=== PATIENT | female | born 1975 | race Caucasian/White ===

== ENCOUNTER 2023-10-17 09:17 | Emergency (ER) | payer OTHER, SELFPAY ==
--- NOTE | ~2023-10-17 | MR_ITS ---
MRI OF THE BRAIN WITHOUT IV CONTRAST INDICATION: Cerebellar infarction. COMPARISON: Head CT 10/17/2023. TECHNIQUE: Multiplanar multisequence MR imaging of the brain was obtained without IV contrast. FINDINGS: There is no hydrocephalus, extra-axial surface collection, or herniation. There are multiple chronic cerebellar lacunar infarcts bilaterally. There is mild chronic microangiopathy. The major flow voids at the skull base are preserved. There is no acute infarct on diffusion-weighted imaging. There is no intracranial hemorrhage on the gradient recalled echo acquisition. The midline structures are normal. The cerebellar tonsils are normally positioned. The craniocervical junction is normal. Osseous marrow signal intensity is homogenous. The visualized soft tissues are unremarkable. MR/MR head/brain wo con IMPRESSION: - No acute intracranial findings. No acute infarcts. - There are multiple chronic cerebellar lacunar infarcts bilaterally. There is mild chronic microangiopathy.
--- NOTE | ~2023-10-17 | CT_ITS ---
EXAMINATION: CT HEAD WITHOUT CONTRAST CLINICAL INFORMATION: Lethargy. COMPARISON: CT head 03/29/2007. TECHNIQUE: Contiguous axial imaging was performed from the skull base to vertex without intravenous administration of contrast. This CT examination was performed using dose optimization techniques as appropriate, variously including the following: *Automated exposure control *Adjustment of mA and/or kV according to patient size (this includes techniques or standardized protocols for targeted exams where dose is matched to indication/reason for exam; i.e. extremities or head) *Use of iterative reconstruction technique DLP: 760 mGy-cm FINDINGS: There is no acute intracranial hemorrhage or abnormal extra-axial collection. No intracranial mass effect or midline shift. Lateral and third ventricles are normal. No hydrocephalus. There are a few tiny age indeterminate left cerebellar infarcts. Garnica-white matter differentiation is otherwise preserved and there is no evidence of acute territorial infarct. The calvarium and skull base are grossly intact. No mastoid middle ear effusion. No active paranasal sinus disease. CT/CT head/brain wo IV con IMPRESSION: There are a few tiny age indeterminant left cerebellar infarcts. These infarcts were not definitively visible on the CT scan of the head from 03/29/2007. Otherwise unremarkable examination. No evidence of acute hemorrhage.
[2023-10-17 09:32] VITALS: BP 132/82; BP 98/58; PULSE 60; PULSE 61; RESP 16; TEMP 36.6; O2SAT 95; O2SAT 97; BMI 54.2
--- NOTE | 2023-10-17 09:36 | ECG_ITS ---
Test Reason : weakness Blood Pressure : / mmHG Vent. Rate : 055 BPM Atrial Rate : 055 BPM P-R Int : 146 ms QRS Dur : 092 ms QT Int : 456 ms P-R-T Axes : 002 004 -01 degrees QTc Int : 436 ms Sinus bradycardia Inferior infarct , age undetermined Abnormal ECG No previous ECGs available Referred By: Generic ED Physician Electronically Signed By:ELIJAH SOUSA MD
[2023-10-17 10:20] VITALS: BP 93/50; PULSE 57; RESP 12; TEMP 36.6; O2SAT 94
[2023-10-17 10:52] LABS: Basophils Absolute Auto 0.1 X10*3/uL (0.0-0.2); Basophils Percent Auto 0.9 % (0-2); Eosinophils Absolute Auto 0.2 X10*3/uL (0.0-0.4); Eosinophils Percent Auto 3.4 % (0-4); Hematocrit 45.4 % (37.0-47.0); Hemoglobin 15.3 g/dl (12.0-16.0); Imm Gran Abs Auto 0.01 X10*3/uL (0.00-0.03); Imm Gran Pct Auto 0.2 % (0.0-0.4); Lymphocytes Absolute Auto 2.1 X10*3/uL (1.2-4.9); Lymphocytes Percent Auto 32.3 % (20-40); Mean Corpuscular HGB Conc 33.7 g/dl (31.0-35.0); Mean Corpuscular Hemoglobin 33.6 pg (27.0-33.0); Mean Corpuscular Volume 99.6 fL (80.0-98.0); Mean Platelet Volume 9.7 fL (9.4-12.3); Monocytes Absolute Auto 0.7 X10*3/uL (0.1-1.2); Monocytes Percent Auto 10.1 % (2-11); Neutrophils Absolute Auto 3.4 x10*3/uL (2.0-8.3); Neutrophils Percent Auto 53.1 % (45-73); Platelet Count 224 X10*3/uL (160-400); Red Blood Count 4.56 X10*6/uL (4.20-5.50); Red Cell Distribution Width 12.5 % (11.0-16.0); White Blood Count 6.4 X10*3/uL (4.8-10.8)
--- NOTE | 2023-10-17 10:53 | ED_ITS ---
HPI - General Adult General Chief complaint: General Medical Stated complaint: DIZZY W/FALLS ,AMS PER EMS Time Seen by Provider: 10/17/23 10:45 Source: patient and EMS Mode of arrival: EMS Limitations: no limitations History of Present Illness ED Provider: Dr. Nichols HPI narrative: Patient is in rehab for drug and alcohol. She was recently started on trazadone and has had increasing letheragy and increasing ataxia. Patient complaining of feeling off balance but does not describe vertigo. Onset (ago): day(s) Related Data Allergies Allergy/AdvReac Type Severity Reaction Status Date / Time No Known Allergies Allergy Verified 10/17/23 09:36 Review of Systems 2 Review of Systems: Yes all other systems are reviewed and are negative Neurologic: Denies Sensory deficit (Neuro) PMFSH Social History Social History Advance Directives: No Advance Directives Information Provided: No Physical Exam ED Vital Signs: Vital Signs - 24 hr 10/17/23 09:32 10/17/23 10:20 10/17/23 12:42 Temperature 98 F 97.8 F 96.5 F L Pulse Rate 61 57 72 Respiratory Rate 16 12 16 Blood Pressure 98/58 L 93/50 L 163/99 H Pulse Oximetry 95 94 99 Oxygen Delivery Method Room Air Room Air Room Air 10/17/23 12:55 10/17/23 14:12 Temperature 98.2 F Pulse Rate 58 54 Respiratory Rate 12 16 Blood Pressure 100/50 L 112/74 Pulse Oximetry 98 96 Oxygen Delivery Method Room Air Room Air BMI result Body Mass Index 54.2 Const Other: obese female chronically ill in no acute distress Orientation/consciousness: oriented to person and patient oriented x3 Limitations: no limitations HENMT Head: Yes normal to inspection Ears: external ears normal General nose exam: Normal external nose present Mouth: Normal oral and palatal mucosa present and oropharynx normal Throat: Yes posterior oropharynx normal Eyes General: appearance normal, both eyes and all related structures Neck Neck: Yes normal visual inspection Chest Chest palpation & inspection: normal inspection of the chest Resp Auscultation: clear to auscultation bilaterally Cardio Jugular venous distension: no JVD Rate: regular rate Rhythm: regular rhythm Heart sounds: S1 normal heart sound present and S2 normal heart sound present GI Inspection: Yes normal to inspection Palpation (GI): Soft to palpation, nontender and No hepatosplenomegaly present Auscultation: normal bowel sounds General: Yes no CVA tenderness Back/Spine/Pelvis Back: no CVA tenderness Skin General skin exam: no rashes or lesions noted Neuro Other: I walked the patient and she was not steady on her feet with assistance General: oriented to person and patient oriented x3 Cranial nerves: Yes CN's II-XII intact bilaterally Motor exam (neuro): 5/5 motor strength present throughout Sensory Exam: No Sensory deficit (Neuro) Extrem General: Yes normal to inspection Psych Appearance: grossly normal Course Reevaluation(s) Reevaluation #1: Wide based gait slightly off balance will get MRI of brain as CT shows concern for cerebellar infarctions Time: 13:07 Reevaluation #2: physician observation: patient placed in physician observation at 3:44pm. The reason the patient was placed in physician observation is that her head CT showed new cerebellar infarctions age indeterminant and I ordered a MRI of her brain. Currently she is resting comfortably in bed. Time is needed to see if the patient had a cerebellar stroke Time: 15:46 Reevaluation #3: I spent 40 minutes of critical care, with interventions, assessments, speaking to patient, consultants, and family. Time: 16:09 Medical Decision Making Differential Diagnosis Differential Diagnoses: The differential diagnosis associated with the presentation includes (Medication side effect, psychiatric illness, drug dependence, CVA) Admission/Observation Consideration of admission/observation: Escalation of care including admission/observation considered (upon arrival patient considered for admission) Lab Data 10/17/23 10:43 10/17/23 10:43 Labs: Lab Results 10/17/23 10/17/23 Range/Units 10:43 10:51 WBC 6.4 (4.8-10.8) X10*3/uL RBC 4.56 (4.20-5.50) X10*6/uL Hgb 15.3 (12.0-16.0) g/dl Hct 45.4 (37.0-47.0) % MCV 99.6 H (80.0-98.0) fL MCH 33.6 H (27.0-33.0) pg MCHC 33.7 (31.0-35.0) g/dl RDW 12.5 (11.0-16.0) % Plt Count 224 (160-400) X10*3/uL MPV 9.7 (9.4-12.3) fL Immature Gran % (Auto) 0.2 (0.0-0.4) % Neut % (Auto) 53.1 (45-73) % Lymph % (Auto) 32.3 (20-40) % [place] % (Auto) 10.1 (2-11) % Eos % (Auto) 3.4 (0-4) % Baso % (Auto) 0.9 (0-2) % Lymph # (Auto) 2.1 (1.2-4.9) X10*3/uL [place] # (Auto) 0.7 (0.1-1.2) X10*3/uL Eos # (Auto) 0.2 (0.0-0.4) X10*3/uL Baso # (Auto) 0.1 (0.0-0.2) X10*3/uL Abs Immat Gran (auto) 0.01 (0.00-0.03) X10*3/uL Absolute Neuts (auto) 3.4 (2.0-8.3) x10*3/uL Absolute Nucleated RBC 0.000 (0.0-0.012) X10*3/uL Nucleated RBC % (auto) 0.0 (0.0-0.2) /100WBC Sodium 143 (135-145) mmol/L Potassium 3.6 (3.3-5.1) mmol/L Chloride 105 (96-108) mmol/L Carbon Dioxide 27 (22-29) mmol/L Anion Gap 15 (12-20) BUN 22 H (9-16) mg/dL Creatinine 1.23 (0.5-1.4) mg/dL Estim Creat Clear Calc 76.8 Estimated GFR 47 Random Glucose 90 (60-115) mg/dL Calcium 10.0 (8.4-10.2) mg/dL Total Bilirubin 0.5 (0.0-1.0) mg/dL AST 49 H (5-31) U/L ALT 44 H (0-31) U/L Alkaline Phosphatase 76 (39-117) U/L Total Protein 7.8 (6.5-8.0) g/dL Albumin 4.0 (3.5-5.0) g/dL Urine Color Yellow Urine Appearance Clear Urine pH 5.5 (5.0-9.0) Ur Specific [place] 1.015 (1.005-1.025) Urine Protein Trace (Neg-Trace) mg/dL Urine Glucose (UA) Negative (Negative) mg/dL Urine Ketones Negative (Negative) mg/dL Urine Blood Negative (Negative) Urine Nitrite Negative (Negative) Ur Leukocyte Esterase Negative (Negative) Urine Opiates Screen Not Detected (Not Detect) Ur Buprenorphine Scrn Not Detected (Not Detect) ng/mL Ur Oxycodone Screen Not Detected (Not Detect) ng/mL Urine Methadone Screen Not Detected (Not Detect) ng/mL Urine Fentanyl Screen Not Detected (Not Detect) Ur Barbiturates Screen Not Detected (Not Detect) Ur Phencyclidine Scrn Not Detected (Not Detect) Ur Amphetamines Screen Not Detected (Not Detect) U Benzodiazepines Scrn POSITIVE H (Not Detect) Urine Cocaine Screen Not Detected (Not Detect) U Marijuana (THC) Screen Not Detected (Not Detect) Independent Interpretation I performed an independent interpretation of an: EKG (sinus [address] or twave changes) and CT Scan (Brain: no bleed no mass) Radiology Impression Discussion of test interpretation with radiology: I have reviewed the radiologist's reading. (Radiologist read age indeterminant cerebellar strokes) Independent Historian Clinical information obtained from an independent historian. History obtained from or confirmed by: EMS Social Determinants Patient?s care significantly limited by Social Determinants of Health including: Alcoholism and drug addiction in family Discharge Plan Discharge Clinical Impression: Lethargic, Gait disturbance, Drug side effects Patient Disposition: Still a Patient Print Language: Brazilian
[2023-10-17 10:58] LABS: Appearance Urine Clear; Color Urine Yellow; Glucose Urine UA Negative (Negative); Leukocyte Esterase Urine Negative (Negative); Nitrite Urine Negative (Negative); PH 5.5 (5.0-9.0); Specific Gravity - Urine 1.015 (1.005-1.025); Urine Blood Negative (Negative); Urine Ketones Negative (Negative); Urine Protein Trace mg/dL (Neg-Trace)
[2023-10-17 11:09] LABS: Alanine Aminotransferase 44 U/L (0-31); Alkaline Phosphatase 76 U/L (39-117); Anion Gap 15 (12-20); Aspartate Amino Transferase 49 U/L (5-31); Bilirubin Total 0.5 mg/dL (0.0-1.0); Blood Urea Nitrogen 22 mg/dL (9-16); Carbon Dioxide 27 mmol/L (22-29); Chloride 105 mmol/L (96-108); Creatinine Clr Calc Pharmacy 76.8; Estimated Glomerular Filt Rate 47; Glucose Random 90 mg/dL (60-115); Potassium 3.6 mmol/L (3.3-5.1); Sodium 143 mmol/L (135-145); Total Protein 7.8 g/dL (6.5-8.0)
[2023-10-17 11:12] LABS: Amphetamine Screen Urine Not Detected (Not Detect); Barbiturates, Urine Not Detected (Not Detect); Benzodiazepines Screen Urine POSITIVE (Not Detect); Buprenorphine Scr Not Detected (Not Detect); Cannabinoid Screen Urine Not Detected (Not Detect); Cocaine Screen Urine Not Detected (Not Detect); Fentanyl, urine Not Detected (Not Detect); Methadone Screen, Urine Not Detected (Not Detect); Opiate Screen Urine Not Detected (Not Detect); Oxycodone Screen Urine Not Detected (Not Detect); Phencyclidine Screen Urine Not Detected (Not Detect)
[2023-10-17 12:42] VITALS: BP 163/99; PULSE 72; RESP 16; TEMP 35.8; O2SAT 99
[2023-10-17 12:55] VITALS: BP 100/50; PULSE 58; RESP 12; O2SAT 98
[2023-10-17 14:12] VITALS: BP 112/74; PULSE 54; RESP 16; TEMP 36.8; O2SAT 96
--- NOTE | 2023-10-17 17:49 | PC.NURSE ---
patient to mri
--- NOTE | 2023-10-17 21:25 | PC.NURSE ---
late entry- pt a&ox4, respirations even and unlabored. pt reporting pain at IV site, iv tubing changed and IV line reassessed at this time. pt denies pain at site. pt resting in stretcher.
[2023-10-17 21:39] VITALS: BP 112/69; PULSE 77; RESP 16; TEMP 36.6; O2SAT 95
[2023-10-18 00:17] VITALS: BP 140/70; PULSE 57; RESP 16; TEMP 36.9; O2SAT 94
--- NOTE | 2023-10-18 01:13 | PC.NURSE ---
report given to Britt at [facility].
[2023-10-18] MEDS: Atorvastatin Calcium 40 MG TABLET PO (01:18)
[2023-10-18] MEDS: Aspirin Enteric Coated 325 MG TABLET.DR PO (01:18)
--- NOTE | 2023-10-18 01:25 | PC.NURSE ---
pt medicated per jul, tolerated well with water. pt noted to have incontinent urine, pt given new gown and hospital pants.
[2023-10-18 02:53] VITALS: BP 140/76; PULSE 58; RESP 16; TEMP 36.6; O2SAT 94
--- NOTE | 2023-10-18 03:16 | PC.NURSE ---
ems at bedside for report and transfer
[2023-10-18 03:18] VITALS: BP 140/76; PULSE 58; RESP 16; TEMP 36.6; O2SAT 94
== END 2023-10-18 03:18 | disposition other institution (70) ==
PROVIDERS: Emergency Provider Emergency Medicine
DX: R53.83 Other fatigue (principal); R26.0 Ataxic gait; T43.215A Adverse effect of selective serotonin and norepinephrine reuptake inhibitors, initial encounter; Y92.009 Unspecified place in unspecified non-institutional (private) residence as the place of occurrence of the external cause; R42 Dizziness and giddiness; F10.20 Alcohol dependence, uncomplicated; Y90.9 Presence of alcohol in blood, level not specified; E66.9 Obesity, unspecified; Z68.43 Body mass index [BMI] 50.0-59.9, adult; Z86.73 Personal history of transient ischemic attack (TIA), and cerebral infarction without residual deficits; Z87.891 Personal history of nicotine dependence
CPT/HCPCS: 36415; 70450; 70551; 80053; 80307; 81003; 85025; 93005; 99285

== ENCOUNTER → 2023-10-17 09:36 | Outpatient (BNV) | payer OTHER, SELFPAY | PROVIDERS: Emergency Provider Emergency Medicine; Visit Provider Internal Medicine Cardiovascular Disease | DX: R53.1 Weakness (principal) | CPT/HCPCS: 93010 ==

== ENCOUNTER 2023-10-18 16:09 | Inpatient (IN) | payer MEDICAID, SELFPAY ==
[2023-10-18] VITALS (7 sets, daily range): BP systolic 107–132; BP diastolic 49–98; PULSE 58–76; RESP 16–18; TEMP 36.2–37.1; O2SAT 92–97; BMI 53.3; BMI 52.1
--- NOTE | ~2023-10-18 | CT_ITS ---
EXAMINATION: CT ANGIOGRAM HEAD CT ANGIOGRAM NECK CLINICAL INFORMATION: Headache. Complete loss of vision lasting 1-2 minutes one or 2 weeks prior. No associated weakness or headache. COMPARISON: None. TECHNIQUE: Initial noncontrast lithographic proofer apprentice imaging of the head and neck was performed. Noncontrast head CT was also performed. Test bolus sequences followed by intravenous administration 70 mL of Omnipaque 350. Helical imaging was performed in the axial plane from the aortic arch to the skull vertex. Delayed postcontrast imaging of the head was also performed. The data was processed at the chief nuclear medicine technologist's workstation for generation of MIP sequences. Angled MIPs and volume rendered reformatted images were also generated at an offline 3D workstation. Stenoses are assessed in accordance with NASCET criteria unless otherwise indicated. This CT examination was performed using dose optimization techniques as appropriate, variously including the following: *Automated exposure control. *Adjustment of mA and/or kV according to patient size (this includes techniques or standardized protocols for targeted exams where dose is matched to indication/reason for exam; i.e. extremities or head). *Use of iterative reconstruction technique. DLP: 2202 mGy-cm FINDINGS: CT Head: There is no evidence of acute intracranial hemorrhage or edematous territorial infarction. Garnica-white matter differentiation is preserved. Chronic lacunar infarcts of the left cerebellar hemisphere. A few foci of hypoattenuation in the periventricular and deep white matter most commonly seen with mild microangiopathy. The ventricles are normal in morphology and size. No evidence for obstructive hydrocephalus. No abnormal mass effect or midline shift. No extra-axial fluid collections. No pathologic intra-axial enhancement. No acute soft tissue or osseous abnormalities. Mild mucosal thickening of the paranasal sinuses. Moderate leftward nasal septal deviation with spurring. The mastoid air cells and middle ear cavities are clear. CT Neck: The thyroid gland and remaining cervical soft tissues are within normal limits. Reversal the normal cervical lordosis centered on C5-C6. Congenital nonunion of the posterior arch of C1. Moderate degenerative disc disease from C5-C7. Facet and uncovertebral joint arthropathy leads to osseous encroachment on the neural foramina from C5-C7. CT Upper Chest: The visualized lung apices and upper mediastinum are within normal limits. Neck CTA: Aortic Arch: Normal contour and caliber. Classic 3 vessel branching pattern of the aortic arch. Great Vessel Origins: No significant stenosis of the branch origins. Right Common Carotid Artery: No focal stenosis or occlusion. Cervical Right Internal Carotid Artery: Normal opacification without focal stenosis or occlusion. Left Common Carotid Artery: No focal stenosis or occlusion. Cervical Left Internal Carotid Artery: Normal opacification without focal stenosis or occlusion. Cervical Right Vertebral Artery: Co-dominant. No focal stenosis or occlusion. Cervical Left Vertebral Artery: Co-dominant. No focal stenosis or occlusion. Brain CTA: Intracranial Internal Carotid Arteries: No focal stenosis or occlusion. Right Anterior Cerebral Artery: Normal A1 segment. Normal opacification of the distal TAVARES segments. Left Anterior Cerebral Artery: Normal A1 segment. Normal opacification of the distal TAVARES segments. Anterior Communicating Artery: Normal. Right Middle Cerebral Artery: Normal M1 segment of the MCA without focal stenosis or occlusion. Normal arborization of the distal segments. Left Middle Cerebral Artery: Normal M1 segment of the MCA without focal stenosis or occlusion. Normal arborization of the distal segments. Right Vertebral Artery: Normal V4 segment. Normal opacification of the proximal segments of the posterior inferior cerebellar artery. Left Vertebral Artery: Normal V4 segment. Normal opacification of the proximal segments of the posterior inferior cerebellar artery. Basilar Artery: Normal without focal stenosis or occlusion. Normal appearance of the proximal superior cerebellar arteries. Right Posterior Cerebral Artery: Normal P1 segment. Normal opacification of the distal [employer] segments. Left Posterior Cerebral Artery: Normal P1 segment. Normal opacification of the distal [employer] segments. Normal opacification of the superior sagittal, straight, transverse, and sigmoid sinuses. CT/CT angio head neck IMPRESSION: 1. No evidence of acute intracranial hemorrhage or edematous territorial infarction. 2. CTA of the head and neck without proximal occlusion or flow-limiting stenosis. 3. Chronic lacunar infarcts of the left cerebellar hemisphere. Mild underlying microangiopathy.
--- NOTE | 2023-10-18 16:36 | ED.NEUROSD ---
HPI - Neuro Symptoms/Deficit General Chief Complaint: Fall Stated Complaint: BILAT LEG PAIN Time Seen by Provider: 10/18/23 16:27 Source: patient Mode of arrival: EMS Limitations: no limitations History of Present Illness ED Provider: gem OWEN Narrative: Patient is 48 years old with history of alcohol abuse depression comes from inpatient psych facility steady gait and recurrent fall for last 10 days patient was seen here yesterday showed significant ataxia MRI done which showed cerebellar stroke patient's went back to senior care and unable to ambulate almost fell today to without significant injuries Related Data Home Medications ?Medication ?Instructions ?Recorded ?Confirmed diazepam 5 mg tablet 7.5 mg PO TID 10/17/23 10/18/23 escitalopram oxalate 20 mg tablet 20 mg PO DAILY 10/17/23 10/18/23 furosemide 20 mg tablet 20 mg PO DAILY 10/17/23 10/18/23 furosemide 20 mg tablet 20 mg PO DAILY PRN Edema 10/17/23 10/18/23 ibuprofen 800 mg tablet 800 mg PO BID PRN Pain 10/17/23 10/18/23 meclizine 25 mg tablet 25 mg PO BID PRN Dizziness 10/17/23 10/18/23 metformin 500 mg tablet 500 mg PO DAILY 10/17/23 10/18/23 pantoprazole 40 mg tablet,delayed 40 mg PO BID 10/17/23 10/18/23 release thiamine HCl (vitamin B1) 100 mg 100 mg PO DAILY 10/17/23 10/18/23 tablet trazodone 50 mg tablet 50 mg PO BEDTIME 10/17/23 10/18/23 Previous Rx's ?Medication ?Instructions ?Recorded aspirin 81 mg tablet,delayed 81 mg PO DAILY #90 tabs 10/18/23 release atorvastatin 40 mg tablet 40 mg PO BEDTIME #90 tabs 10/18/23 Allergies Allergy/AdvReac Type Severity Reaction Status Date / Time No Known Allergies Allergy Verified 10/18/23 16:32 Review of Systems Review of Systems: Yes all other systems are reviewed and are negative PMFSH Social History Social History Household Members: Other Household Members Other:: senior care Housing: Other Unable to assess alcohol history related to: Unable to respond Alcohol intake: former Patient Tobacco Use Status: Former Tobacco user Tobacco use type: Cigarette Smoked in Last 30 Days: No e-Cigarette/Vaping Use: Never Used Use of substances other than those prescribed or required for medical reasons: No Currently Displaying Signs/Symptoms of Drug Intoxication Withdrawal: No Any prior treatment program specific to substance use: No Have you been hit, kicked, punched, or otherwise hurt by someone within the past year? If so, by whom?: No Do you feel safe in your current relationship?: Yes Is there a partner from a previous relationship who is making you feel unsafe now?: No Are you made to feel afraid or neglected: No Advance Directives: No Advance Directives Information Provided: No Do you have a plan to hurt others: No Plan Recently lost weight without trying: No Eating poorly because of decreased appetite: No Nutrition Risks: No Nutritional Risk Patient : No : No Poor oral hygiene: No Physical Exam Vital Signs: Vital Signs: Last Vital Signs Temp 98.8 F 10/18/23 22:36 Pulse 72 10/18/23 22:36 Resp 18 10/18/23 22:36 BP 123/68 10/18/23 22:36 Pulse Ox 92 10/18/23 22:36 O2 Del Method Room Air 10/18/23 22:36 BMI result Body Mass Index 53.3 Appearance: Alert. Oriented X3. No acute distress. Eyes: PERRLA, No Nystagmus ENT: Pharynx normal. Oral Mucosa moist Neck: Normal inspection. Neck supple. CVS: Normal heart rate and rhythm. Pulses normal. Respiratory: No respiratory distress. Equal air entry bilateral, no wheezing/rales/rhonchi Abdomen: Soft and nontender. Bowel sounds are present, no mass palpable, no CVA tenderness Skin: Skin warm and dry. Normal skin color. Normal skin turgor. Extremities: No lower extremity edema. No calf tenderness Neuro: Oriented X 3. No motor deficit. No sensory deficit. Ataxic gait no tremors , cranial nerves II-XII intact Medications Administered Generic Name Dose Route Start Last Admin Trade Name Freq PRN Reason Stop Dose Admin Atorvastatin Calcium 40 mg 10/18/23 21:00 10/18/23 20:39 Atorvastatin Calcium 40 Mg Tablet PO 40 mg BEDTIME ARUN Administration Enoxaparin Sodium 40 mg 10/18/23 20:00 10/18/23 20:39 Enoxaparin Sodium 40 Mg/0.4 Ml Syringe SUBCUT 40 mg Q24H ARUN Administration Sodium Chloride 3 ml 10/19/23 00:00 10/18/23 23:37 0.9 % Sodium Chloride Flush 3 Ml Syringe IVFLUSH 3 ml QSHIFT ARUN Administration Discontinued Medications Generic Name Dose Route Start Last Admin Trade Name Hua PRN Reason Stop Dose Admin Iohexol 70 ml 10/18/23 17:50 10/18/23 17:50 Iohexol 350 Mg/Ml 100 Ml Infus..Btl IV 10/18/23 17:51 70 ml ONCE ONE Administration Medical Decision Making Medical Decision Making [facility] Narrative: Patient with recent cerebellar stroke with significant ataxia unable to ambulate falling frequently will admit patient for further evaluation urology input and physical therapy/rehab placement Consult Healthcare Provider Management of the patient was discussed with: Hospitalist Independent Interpretation I performed an independent interpretation of an: CT Scan Radiology Impression Discussion of test interpretation with radiology: I have reviewed the radiologist's reading. Radiologist Impression: [place] [id number] CT Scan Report Signed Patient: Sri Clayton MR#: [id number] : 1975 Acct:[id number] Age/Sex: 48 / F ADM Date: 10/18/23 Loc: HO.ED Attending Dr: Ordering Physician: Darin Hoover MD Date of Service: 10/18/23 Procedure(s): CT angio head neck Accession Number(s): [id number] cc: Physician,Unknown ; Darin Hoover MD~ EXAMINATION: CT ANGIOGRAM HEAD CT ANGIOGRAM NECK CLINICAL INFORMATION: Headache. Complete loss of vision lasting 1-2 minutes one or 2 weeks prior. No associated weakness or headache. COMPARISON: None. TECHNIQUE: Initial noncontrast field foreman imaging of the head and neck was performed. Noncontrast head CT was also performed. Test bolus sequences followed by intravenous administration 70 mL of Omnipaque 350. Helical imaging was performed in the axial plane from the aortic arch to the skull vertex. Delayed postcontrast imaging of the head was also performed. The data was processed at the dental technologist's workstation for generation of MIP sequences. Angled MIPs and volume rendered reformatted images were also generated at an offline 3D workstation. Stenoses are assessed in accordance with NASCET criteria unless otherwise indicated. This CT examination was performed using dose optimization techniques as appropriate, variously including the following: *Automated exposure control. *Adjustment of mA and/or kV according to patient size (this includes techniques or standardized protocols for targeted exams where dose is matched to indication/reason for exam; i.e. extremities or head). *Use of iterative reconstruction technique. DLP: 2202 mGy-cm FINDINGS: CT Head: There is no evidence of acute intracranial hemorrhage or edematous territorial infarction. Garnica-white matter differentiation is preserved. Chronic lacunar infarcts of the left cerebellar hemisphere. A few foci of hypoattenuation in the periventricular and deep white matter most commonly seen with mild microangiopathy. The ventricles are normal in morphology and size. No evidence for obstructive hydrocephalus. No abnormal mass effect or midline shift. No extra-axial fluid collections. No pathologic intra-axial enhancement. No acute soft tissue or osseous abnormalities. Mild mucosal thickening of the paranasal sinuses. Moderate leftward nasal septal deviation with spurring. The mastoid air cells and middle ear cavities are clear. CT Neck: The thyroid gland and remaining cervical soft tissues are within normal limits. Reversal the normal cervical lordosis centered on C5-C6. Congenital nonunion of the posterior arch of C1. Moderate degenerative disc disease from C5-C7. Facet and uncovertebral joint arthropathy leads to osseous encroachment on the neural foramina from C5-C7. CT Upper Chest: The visualized lung apices and upper mediastinum are within normal limits. Neck CTA: Aortic Arch: Normal contour and caliber. Classic 3 vessel branching pattern of the aortic arch. Great Vessel Origins: No significant stenosis of the branch origins. Right Common Carotid Artery: No focal stenosis or occlusion. Cervical Right Internal Carotid Artery: Normal opacification without focal stenosis or occlusion. Left Common Carotid Artery: No focal stenosis or occlusion. Cervical Left Internal Carotid Artery: Normal opacification without focal stenosis or occlusion. Cervical Right Vertebral Artery: Co-dominant. No focal stenosis or occlusion. Cervical Left Vertebral Artery: Co-dominant. No focal stenosis or occlusion. Brain CTA: Intracranial Internal Carotid Arteries: No focal stenosis or occlusion. Right Anterior Cerebral Artery: Normal A1 segment. Normal opacification of the distal TAVARES segments. Left Anterior Cerebral Artery: Normal A1 segment. Normal opacification of the distal TAVARES segments. Anterior Communicating Artery: Normal. Right Middle Cerebral Artery: Normal M1 segment of the MCA without focal stenosis or occlusion. Normal arborization of the distal segments. Left Middle Cerebral Artery: Normal M1 segment of the MCA without focal stenosis or occlusion. Normal arborization of the distal segments. Right Vertebral Artery: Normal V4 segment. Normal opacification of the proximal segments of the posterior inferior cerebellar artery. Left Vertebral Artery: Normal V4 segment. Normal opacification of the proximal segments of the posterior inferior cerebellar artery. Basilar Artery: Normal without focal stenosis or occlusion. Normal appearance of the proximal superior cerebellar arteries. Right Posterior Cerebral Artery: Normal P1 segment. Normal opacification of the distal [employer]IST segments. Left Posterior Cerebral Artery: Normal P1 segment. Normal opacification of the distal FIN[employer] E[employer]IST segments. Normal opacification of the superior sagittal, straight, transverse, and sigmoid sinuses. CT/CT angio head neck IMPRESSION: 1. No evidence of acute intracranial hemorrhage or edematous territorial infarction. 2. CTA of the head and neck without proximal occlusion or flow-limiting stenosis. 3. Chronic lacunar infarcts of the left cerebellar hemisphere. Mild underlying microangiopathy. Discharge Plan Discharge Clinical Impression: Abnormal gait Patient Disposition: Admitted As Inpatient Interventions: Admission Worksheet (ED) Last Done: 10/18/23 21:46 Discharge Date/Time: 10/18/23 22:31
[2023-10-18] MEDS: iohexoL 350 MG/ML 100 ML INFUS..BTL 70 ML IV (17:50)
--- NOTE | 2023-10-18 18:09 | PM.IMHP ---
History of Present Illness Date of Service: 10/18/23 Chief Complaint: Falls/unsteady gait 48-year-old female patient resident of [facility] with past medical history significant for borderline diabetes, morbid obesity, fatty liver currently residing in a [facility] for last 1 month for alcohol recovery and treatment for depression at baseline she ambulates with a cane , but for last 7-10 days she noticed losing balance and falling, she denies associated headache, no nausea, no vomiting, she noticed vertigo 2-3 weeks ago for which she was prescribed meclizine 10 days ago with good affect , she was also recently started on trazodone, patient was seen at [facility] yesterday for symptoms of ataxia and lethargy, MRI 10/16 showed no acute intracranial finding, no acute infarction but showed multiple chronic cerebellar lacunar infarctions bilaterally and mild chronic microangiopathy, patient was placed on aspirin and statins and was sent back to [facility] for outpatient workup, however patient was sent back to ED today due to persistent symptoms of fall unsteady gait and [facility] was unable to take care of patient, at present patient denies any headache, no lightheadedness, no dizziness, denies weakness numbness, no nausea, no vomiting, she stopped drinking 1 month ago, quit smoking 2 years ago, denies urinary symptoms of urgency frequency, no fevers, no chills, she will be admitted to [facility] due to unsteady gait recurrent falls and for further evaluation of cerebellar lacunar infarcts. Review of Systems Review of Systems: General no headache, no dizziness no fever chills. CVS no chest pain, no palpitation. Respiratory cough productive of thick phlegm Gastrointestinal no nausea no vomiting, no abdominal pain no urgency no frequency Skin no rash Musculoskeletal chronic knee pain due to osteoarthritis left greater than right, lower back pain All other system reviewed and negative PMFSH Pertinent family history: Mother of renal failure had cardiac arrest during hemodialysis Father alive and healthy Social History Household Members: Other Household Members Other:: [facility] Housing: Other Unable to assess alcohol history related to: Unable to respond Alcohol intake: former Patient Tobacco Use Status: Former Tobacco user Tobacco use type: Cigarette Smoked in Last 30 Days: No e-Cigarette/Vaping Use: Never Used Use of substances other than those prescribed or required for medical reasons: No Currently Displaying Signs/Symptoms of Drug Intoxication Withdrawal: No Any prior treatment program specific to substance use: No Have you been hit, kicked, punched, or otherwise hurt by someone within the past year? If so, by whom?: No Do you feel safe in your current relationship?: Yes Is there a partner from a previous relationship who is making you feel unsafe now?: No Are you made to feel afraid or neglected: No Advance Directives: No Advance Directives Information Provided: No Do you have a plan to hurt others: No Plan Recently lost weight without trying: No Eating poorly because of decreased appetite: No Nutrition Risks: No Nutritional Risk Patient : No : No Poor oral hygiene: No Meds Allergies Allergy/AdvReac Type Severity Reaction Status Date / Time No Known Allergies Allergy Verified 10/18/23 16:32 Home Medications ?Medication ?Instructions ?Recorded ?Confirmed ?Last Taken ?Type diazepam 5 mg tablet 7.5 mg PO TID 10/17/23 10/18/23 Unknown History escitalopram oxalate 20 mg tablet 20 mg PO DAILY 10/17/23 10/18/23 Unknown History furosemide 20 mg tablet 20 mg PO DAILY 10/17/23 10/18/23 Unknown History furosemide 20 mg tablet 20 mg PO DAILY PRN Edema 10/17/23 10/18/23 Unknown History ibuprofen 800 mg tablet 800 mg PO BID PRN Pain 10/17/23 10/18/23 Unknown History meclizine 25 mg tablet 25 mg PO BID PRN Dizziness 10/17/23 10/18/23 Unknown History metformin 500 mg tablet 500 mg PO DAILY 10/17/23 10/18/23 Unknown History pantoprazole 40 mg tablet,delayed 40 mg PO BID 10/17/23 10/18/23 Unknown History release thiamine HCl (vitamin B1) 100 mg 100 mg PO DAILY 10/17/23 10/18/23 Unknown History tablet trazodone 50 mg tablet 50 mg PO BEDTIME 10/17/23 10/18/23 Unknown History Physical Exam Vital Signs and Narrative: Vital Signs: Last Vital Signs Temp 98.1 F 10/18/23 17:46 Pulse 58 10/18/23 17:46 Resp 16 10/18/23 17:46 BP 132/67 10/18/23 17:46 Pulse Ox 97 10/18/23 17:46 O2 Del Method Room Air 10/18/23 17:46 BMI result Body Mass Index 53.3 Const: Other: General awake alert x3, in no acute distress. HEENT anicteric sclera, no nystagmus Neck supple no JVD. CVS regular rate rhythm, Respiratory lungs clear to auscultation, no respiratory distress, no wheeze, no rhonchi. Gastrointestinal abdomen soft, non tender, bowel sounds audible, no guarding , no rigidity. Extremities no edema. Neuro moving all 4 extremity, face symmetrical, speech clear, no nystagmus, normal finger-nose. Skin no rash Psych appropriate affect Results Imaging Radiologist's Impressions: Impressions Head/Neck CTA 10/18/23 17:51 IMPRESSION: 1. No evidence of acute intracranial hemorrhage or edematous territorial infarction. 2. CTA of the head and neck without proximal occlusion or flow-limiting stenosis. 3. Chronic lacunar infarcts of the left cerebellar hemisphere. Mild underlying microangiopathy. Assessment and Plan (1) Gait disturbance: Status: Acute Plan 48-year-old female patient with past medical history significant for alcohol abuse, depression currently resident of [facility] x1 month recovering from alcohol was seen at [facility] on due to symptoms of lethargy and falls and MRIs study showed bilateral multiple chronic cerebellar lacunar infarctions, patient was sent back to [facility] but returned back to ED due to persistent falls and unsteady gait. Unsteady gait/recurrent falls Likely multifactorial due to history of alcohol abuse/chronic lacunar infarction of b/l cerebellar hemispheres obtain PT/OT eval Consult neurology Chronic bilateral cerebellar lacunar infarction History of borderline diabetes, no hypertension, no tobacco use disorder Continue Lipitor, aspirin Stable blood pressures and blood sugars Check lipid profile/echocardiogram/ obtain PT/OT eval Consult neurology History of alcohol use disorder Residing at [facility] for alcohol recovery x1 month Place on thiamine/folic acid Mood disorder resume home medications avoid sedatives due to lethargy. Borderline diabetes stable blood sugars recommend low-calorie diet and continue metformin upon discharge. Morbid obesity recommend low-calorie diet and weight loss DVT prophylaxis Lovenox subQ Full code In my clinical judgment patient need two night inpatient hospitalization for further workup for unsteady gait recurrent falls and chronic lacunar infarct requiring expert consultation/PT evaluation and safe disposition. Quality Stroke Does the patient have a stroke diagnosis?: No VTE Prior VTE?: No VTE Risk Level:: Medical - moderate - high VTE Device Contraindication: Treatment Not Indicated VTE Drug Contraindication: N/A - Med Ordered
--- NOTE | 2023-10-18 18:34 | PC.NURSE ---
pt alert and oriented. seen here yesterday for TIA. Pt continues to have trouble ambulating today, feels very unsteady and off balance and has had a few falls. Pt reports that they quit drinking one month ago and have not had a drink in that times. IV 20g right forearm.
--- NOTE | 2023-10-18 19:41 | PC.NURSE ---
This narrative writer assumed care of this Pt at 1900. Pt A&O to self and place, denies any pain. Pt requesting PO fluids and sandwich, Pt awaiting Ct scan results at this time, pt okay to wait.
--- NOTE | 2023-10-18 19:42 | PC.NURSE ---
This marketing underwriter assumed care of this Pt at 1900. Pt A&Ox3, denies any pain. Reports unknown weakness to L. Pt worried she will loose placement at current shelter.
--- NOTE | 2023-10-18 19:44 | MHC.EDTECH ---
1999 rounding done ,vitals taken and patient belongings list done ,Patient had tuna fish sandwich and eric arron for a snack .
--- NOTE | 2023-10-18 20:15 | PC.NURSE ---
T/W spoke to human services program specialist Solomon Tello, Pt is in a residential recovery home, and they would like her to get PT eval before returning d/t level of care and concern for falls. Solomon states they will hold bed.
--- NOTE | 2023-10-18 20:20 | PC.NURSE ---
school of nursing director Solomon Tello [phone].
[2023-10-18] MEDS: Atorvastatin Calcium 40 MG TABLET PO (20:39)
[2023-10-18] MEDS: Enoxaparin Sodium 40 MG/0.4 ML SYRINGE SUBCUT (20:39)
[2023-10-18 20:56] LABS: Glucose, Whole Blood 85 mg/dL (60-115)
--- NOTE | 2023-10-18 21:58 | PC.NURSE ---
Report complete, Pt will be transported to room 386. Pt aware of plan.
--- NOTE | 2023-10-18 22:27 | PHA.MEDREC ---
Addendum entered by Jessica Pérez 10/19/23 15:16: Tried calling [facility] in [place] 4 times with no answer or call back from them. Called [facility], [facility] and [facility] to confirm if patient should be on Atorvastatin and Aspirin and they have no records of either one of those medications being filled for her at home. Original Note: Pharmacy Consult ? Medication Reconciliation Pharmacy has completed the medication reconciliation. Unable to confirm meds with patient with no luck she could not remember what dosing she was on for her meds, tried to contact sister with no answer but patient stated she came from [facility] in [place] but no list was with the patient, I noticed there was a med rec done yesterday so I went off the best I could with that. Confirm 10/19/2023 with sister or [facility] with meds.
[2023-10-18] MEDS: 0.9 % Sodium Chloride Flush 3 ML SYRINGE IVFLUSH (23:37)
[2023-10-19] MEDS: Omeprazole 40 MG CAPSULE.DR PO (05:55)
[2023-10-19 06:01] LABS: Estimated Average Glucose 117 mg/dL; Hemoglobin A1c % 5.7 % (<6.0)
[2023-10-19 06:13] LABS: Cholesterol 123 mg/dL (<200); HDL Cholesterol 22 mg/dL (>40); LDL Cholesterol Calculated 79 mg/dL (<100); Triglycerides 112 mg/dL (<150)
[2023-10-19 06:28] LABS: Thyroid Stimulating Hormone 1.26 uIU/mL (0.32-4.0)
--- NOTE | 2023-10-19 07:00 | CA_ITS ---
Transthoracic Echocardiogram Patient (Last, First, Middle): Sri Clayton A Gender: Female Date of : 1975 Age: 48 Procedure Date: 10/19/2023 Procedure Type: Transthoracic Echocardiogram Location: S3W Height: 160.02 cm Weight: 134.72 kg BSA: 2.29 m2 Heart Rate: bpm BP: 107 / 56 mmHg Welcome Desk Agent: Referring MD: Javier Sidhu MD Symptoms: cva Study Quality: Adequate w contrast Conclusions: - 1. Technically limited study despite use of contrast agent 2. Normal LV ejection fraction of 60-65% with mild LVH 3. Intracardiac shunting can not be conclusively ruled out 4. Normal cardiac valvular Dopplers Findings Procedure Information Contrast agent, definity, is being given per protocol without apparent complications. Left Ventricle Normal left ventricular size and systolic function. There is mildly increased left ventricular wall thickness. The visually estimated ejection fraction is between 65-70%. Spectral Doppler is indicative of a normal filling pattern. Right Ventricle The right ventricle was not well visualized. There is normal right ventricular systolic function. Atria The left atrium is normal in size. Interatrial shunt cannot be excluded by agitated saline. The right atrium was not well visualized. Aortic Valve The aortic valve was not well visualized. There is no aortic valve stenosis. There is no aortic valve regurgitation. Mitral Valve The mitral valve was not well visualized. There is trace mitral valve regurgitation. There is no mitral valve stenosis. Pulmonic Valve The pulmonic valve was not well visualized. Tricuspid Valve The tricuspid valve was not well visualized. Tricuspid regurgitation envelope is inadequate for calculation of right ventricular systolic pressure. Normal right atrial pressure. Great Vessels The aorta was not well visualized. The pulmonary artery was not well visualized. Venous The inferior vena cava is normal in size and collapses greater than 50% with inspiration. Pericardium/Pleural The pericardium was not well visualized. Prior Study Comparison No prior study available for comparison. Recommendations, Care & Conclusions Consider a CANDY if clinically appropriate. Measurements 2D Linear Measurements IVSd: 1.22 0.6-0.9/0.6-1.0 cm LVIDd: 4.49 3.9-5.3/4.2-5.9 cm LVIDd Index: 1.96 2.4-3.2/2.2-3.1 cm/m2 LVIDs: 2.87 2.0-3.6 cm LVPWd: 1.27 0.7-1.1 cm Ao Root: 3.20 2.1-3.5 cm LA Diam: 3.80 2.7-3.8/3.0-4.0 cm LAIDs Index: 1.66 1.5-2.3 cm/m2 LV Mass: 259.53 67-162/88-224 g LV Mass Index: 113.33 43-95/49-115 g/m2 LVOT Diam: 2.50 3.0+(-)1.3 cm 2D Systolic Function EF 4C: 73.40 >55% EF 2C: 61.30 >55% EF BiP: 67.00 >55% Mitral Valve MV Pk E: 0.64 MV PK A: 0.58 MV Decel Time: 164.00 E/A: 1.10 E'Lateral: 12.20 E'Medial: 7.83 E/E' Med: 8.10 E/E' Lat: 5.20 PHT: 48.00 MVA PHT: 4.58 Decel Laporte: 3.89 Aortic Valve AoV Pk Miguel: 1.20 AoV Mn Miguel: 0.78 AoV VTI: 0.32 AoV Pk Grad: 6.00 Aov Mn Grad: 3.00 OZ Cont.VTI: 3.23 LVOT LVOT Pk Miguel: 0.91 LVOT Mn Miguel: 0.56 LVOT VTI: 0.21 LVOT Pk Grad: 3.00 LVOT Mn Grad: 2.00 LVOT Diam: 2.50 LVOT Area: 4.91 Diastolic Function MV Pk E: 0.64 MV Pk A: 0.58 E/A: 1.10 E'Medial: 7.83 E/E' Med: 8.10 E' Laterial: 12.20 E/E' Lat: 5.20 Right Ventricle TAPSE (mm): 31.30 TVS' Miguel: 14.30 Tricuspid Valve TR Pk Miguel: 2.25 TR Pk Grad: 20.00 Great Vessels Aorta Ao Root-2D: 3.20 2.0-3.7 cm Ao Asc: 2.90 2.1-3.4 cm Pulmonary Valve PV Pk Miguel: 0.90 Peak PV Grad: 3.00 Updated in Other Vendor System with Status of Final El Hanna MD electronically signed on 10/19/2023 4:30:24 PM with status of Final
[2023-10-19 07:36] VITALS: BP 107/56; PULSE 57; RESP 12; TEMP 37; O2SAT 93
[2023-10-19] MEDS: Aspirin Enteric Coated 81 MG TABLET.DR PO (07:50)
[2023-10-19] MEDS: Thiamine HCL 100 MG TABLET PO (07:50)
[2023-10-19] MEDS: 0.9 % Sodium Chloride Flush 3 ML SYRINGE IVFLUSH ×3 (07:50→21:08)
[2023-10-19] MEDS: Folic Acid 1 MG TABLET PO (07:50)
--- NOTE | 2023-10-19 13:03 | HO.PM.IMPN ---
Subjective Subjective Date of Service: 10/19/23 Interval History: Being followed for recurrent fall ,ataxia, chronic bilateral cerebellar lacunar infarct. Patient noted to be somnolent this morning, slept well despite not receiving trazodone and diazepam. Denies nausea vomiting, no lightheadedness, no dizziness no other acute events overnight tolerating diet. Review of Systems All other system reviewed and negative Physical Exam Vital Signs: Vital Signs: Last Vital Signs Temp 98.6 F 10/19/23 07:36 Pulse 57 10/19/23 07:36 Resp 12 10/19/23 07:36 BP 107/56 L 10/19/23 07:36 Pulse Ox 93 10/19/23 07:36 O2 Del Method Room Air 10/19/23 07:36 BMI result Body Mass Index 52.1 Const: Other: General lethargic, in no acute distress. HEENT anicteric sclera, no nystagmus Neck supple no JVD. CVS regular rate rhythm, Respiratory lungs clear to auscultation, no respiratory distress, no wheeze, no rhonchi. Gastrointestinal abdomen soft, non tender, bowel sounds audible, no guarding , no rigidity. Extremities no edema. Neuro moving all 4 extremity, face symmetrical, speech clear, no nystagmus, normal finger-nose, gait not assessed. Skin no rash Psych appropriate affect Objective Data Active Medications Acetaminophen (Acetaminophen 325 Mg Tablet) 650 mg PO Q6H PRN PRN Reason: Pain, Mild (Pain Scale 1-3) Aspirin (Aspirin Enteric Coated 81 Mg Tablet.) 81 mg PO DAILY [facility] Last Admin: 10/19/23 07:50 Dose: 81 mg Documented By: ABAD Atorvastatin Calcium (Atorvastatin Calcium 40 Mg Tablet) 40 mg PO BEDTIME [facility] Last Admin: 10/18/23 20:39 Dose: 40 mg Documented By: JEWEL Diazepam (Diazepam 5 Mg Tablet) 5 mg PO TID [facility] Docusate Sodium (Docusate Sodium 100 Mg Capsule) 100 mg PO DAILY PRN PRN Reason: Constipation Enoxaparin Sodium (Enoxaparin Sodium 40 Mg/0.4 Ml Syringe) 40 mg SUBCUT Q24H [facility] Last Admin: 10/18/23 20:39 Dose: 40 mg Documented By: JEWEL Escitalopram Oxalate (Escitalopram Oxalate 20 Mg Tablet) 20 mg PO DAILY [facility] Folic Acid (Folic Acid 1 Mg Tablet) 1 mg PO DAILY [facility] Last Admin: 10/19/23 07:50 Dose: 1 mg Documented By: ABAD Magnesium Hydroxide (Milk Of Magnesia 30 Ml Oral.Susp) 30 ml PO DAILY PRN PRN Reason: Constipation Meclizine HCl (Meclizine Hcl 25 Mg Tablet) 25 mg PO Q8H PRN PRN Reason: dizziness Melatonin (Melatonin 3 Mg Tablet) 3 mg PO BEDTIME PRN PRN Reason: Insomnia Omeprazole (Omeprazole 40 Mg Capsule.) 40 mg PO DAILY@0630 [facility] Last Admin: 10/19/23 05:55 Dose: 40 mg Documented By: SO Ondansetron HCl (Ondansetron Hcl 4 Mg/2 Ml Vial) 4 mg IVPUSH Q8H PRN PRN Reason: Nausea and Vomiting Sodium Chloride (0.9 % Sodium Chloride Flush 3 Ml Syringe) 3 ml IVFLUSH QSHIFT [facility] Last Admin: 10/19/23 07:50 Dose: 3 ml Documented By: ABAD Thiamine HCl (Thiamine Hcl 100 Mg Tablet) 100 mg PO DAILY [facility] Last Admin: 10/19/23 07:50 Dose: 100 mg Documented By: ABAD Trazodone HCl (Trazodone Hcl 50 Mg Tablet) 50 mg PO BEDTIME [facility] Labs Labs: Laboratory Results - last 24 hr 10/18/23 10/19/23 20:51 05:17 POC Glucose 85 Estimat Average Glucose 117 Hemoglobin A1c % 5.7 Triglycerides 112 Cholesterol 123 LDL Cholesterol, Calc 79 HDL Cholesterol 22 L TSH 1.26 Assessment and Plan (1) Gait disturbance: Status: Acute Plan 48-year-old female patient with past medical history significant for alcohol abuse, depression currently resident of [facility] x1 month recovering from alcohol was seen at [facility] on due to symptoms of lethargy and falls and MRIs study showed bilateral multiple chronic cerebellar lacunar infarctions, patient was sent back to assisted but returned back to ED due to persistent falls and unsteady gait. Unsteady gait/recurrent falls Likely multifactorial due to history of alcohol abuse/chronic lacunar infarction of b/l cerebellar hemispheres Seen by PT they recommend short-term rehab Chronic bilateral cerebellar lacunar infarction History of borderline diabetes, no hypertension, no tobacco use disorder Continue Lipitor, aspirin Blood sugar 90, hemoglobin A1c 5.7, total cholesterol 123 LDL 79, stable blood pressures Follow echocardiogram PT recommend short-term rehab Check B12 folate Consult neurology History of alcohol use disorder Residing at [facility] for alcohol recovery x1 month Place on thiamine/folic acid On diazepam for withdrawal symptoms noted to be lethargic somnolent will reduce dose of diazepam to 2 mg t.i.d. from dose of 7.5 mg t.i.d. Mood disorder resume home medications Lexapro and trazodone Borderline diabetes stable blood sugars recommend low-calorie diet Morbid obesity recommend low-calorie diet and weight loss DVT prophylaxis Lovenox subQ Full code In my clinical judgment patient need continued inpatient hospitalization for further workup for unsteady gait recurrent falls and chronic lacunar infarct requiring expert consultation and safe disposition. Quality Stroke Does the patient have a stroke diagnosis?: No VTE Prior VTE?: No VTE Risk Level:: Medical - moderate - high VTE Device Contraindication: Treatment Not Indicated VTE Drug Contraindication: N/A - Med Ordered
--- NOTE | 2023-10-19 13:17 | MHC.CM.PN ---
[facility]ERT[facility] DELIVERED PT LIVES IN A [facility] ([facility] [place] PT GIVES PERMISSION TO SPEAK WITH [facility] ([employer]) IF NEEDED. PT USES A CANE FOR MOBILITY. +HCP PCP ANTONY AGUAYO AT [facility]: PT HAS BEEN RECOMMENDED FOR STR, REFERRALS TO BE SENT TO FACILITIES CONTRACTED WITH HER INSURANCE. PT IS AGREEABLE. CM WILL CONTINUE TO FOLLOW FOR ANY CHANGE TO DC PLAN/NEEDS.
--- NOTE | 2023-10-19 13:26 | P.CNNE_ITS ---
History of Present Illness Data of Consult Service Date: 10/19/23 Primary Care Provider: Unknown Physician HPI Reason for consult: Balance problems This is a 48-year-old female resident of a halfway with past medical history of borderline diabetes, morbid obesity, fatty liver currently residing in a halfway for alcohol recovery and treatment for depression.She had been drinking 99% alcohol between 12 and 36 naps a day for the last 2-3 years. Last drink was about 4 weeks ago when she was admitted to the halfway. She also says that her memory is not as sharp. She ambulates with a cane generally, but for last 7-10 days she noticed losing balance and falling, she denies associated headache, no nausea, no vomiting. She had vertigo 2-3 weeks ago for which she was prescribed meclizine 10 days ago with good response. She presented to the ED with symptoms of ataxia and lethargy, MRI 10/16 showed no acute intracranial finding, no acute infarction but showed 3 left cerebellar chronic lacunar infarction and mild chronic microangiopathy. CTA of head and neck were normal with no occlusive disease. The patient was placed on aspirin and statins and was sent back to halfway for outpatient workup, however patient was sent back to ED due to persistent symptoms of fall unsteady gait and halfway was unable to take care of patient. She stopped drinking 1 month ago, quit smoking 2 years ago, denies urinary symptoms of urgency frequency, no fevers, no chills. Review of Systems Review of Systems: All other system reviewed and negative Yes all other systems are reviewed and are negative PMFSH Family History Pertinent family history: Mother of renal failure had cardiac arrest during hemodialysis Father alive and healthy Social History Social History Household Members: Other Household Members Other:: halfway Housing: Other Unable to assess alcohol history related to: Unable to respond Alcohol intake: former Patient Tobacco Use Status: Former Tobacco user Tobacco use type: Cigarette Smoked in Last 30 Days: No e-Cigarette/Vaping Use: Never Used Use of substances other than those prescribed or required for medical reasons: No Currently Displaying Signs/Symptoms of Drug Intoxication Withdrawal: No Any prior treatment program specific to substance use: No Have you been hit, kicked, punched, or otherwise hurt by someone within the past year? If so, by whom?: No Do you feel safe in your current relationship?: Yes Is there a partner from a previous relationship who is making you feel unsafe now?: No Are you made to feel afraid or neglected: No Advance Directives: No Advance Directives Information Provided: No Do you have a plan to hurt others: No Plan Recently lost weight without trying: No Eating poorly because of decreased appetite: No Nutrition Risks: No Nutritional Risk Patient : No : No Poor oral hygiene: No service: No Meds Allergies Allergy/AdvReac Type Severity Reaction Status Date / Time No Known Allergies Allergy Verified 10/18/23 16:32 Active Medications: Current Medications Acetaminophen (Acetaminophen 325 Mg Tablet) 650 mg PO Q6H PRN PRN Reason: Pain, Mild (Pain Scale 1-3) Aspirin (Aspirin Enteric Coated 81 Mg Tablet.) 81 mg PO DAILY COUNTS INCLUDE 234 BEDS AT THE [facility] Last Admin: 10/19/23 07:50 Dose: 81 mg Atorvastatin Calcium (Atorvastatin Calcium 40 Mg Tablet) 40 mg PO BEDTIME COUNTS INCLUDE 234 BEDS AT THE [facility] Last Admin: 10/18/23 20:39 Dose: 40 mg Diazepam (Diazepam 2 Mg Tablet) 2 mg PO TID COUNTS INCLUDE 234 BEDS AT THE [facility] Docusate Sodium (Docusate Sodium 100 Mg Capsule) 100 mg PO DAILY PRN PRN Reason: Constipation Enoxaparin Sodium (Enoxaparin Sodium 40 Mg/0.4 Ml Syringe) 40 mg SUBCUT Q24H COUNTS INCLUDE 234 BEDS AT THE [facility] Last Admin: 10/18/23 20:39 Dose: 40 mg Escitalopram Oxalate (Escitalopram Oxalate 20 Mg Tablet) 20 mg PO DAILY COUNTS INCLUDE 234 BEDS AT THE [facility] Folic Acid (Folic Acid 1 Mg Tablet) 1 mg PO DAILY COUNTS INCLUDE 234 BEDS AT THE [facility] Last Admin: 10/19/23 07:50 Dose: 1 mg Magnesium Hydroxide (Milk Of Magnesia 30 Ml Oral.Susp) 30 ml PO DAILY PRN PRN Reason: Constipation Meclizine HCl (Meclizine Hcl 25 Mg Tablet) 25 mg PO Q8H PRN PRN Reason: dizziness Melatonin (Melatonin 3 Mg Tablet) 3 mg PO BEDTIME PRN PRN Reason: Insomnia Omeprazole (Omeprazole 40 Mg Capsule.) 40 mg PO DAILY@0630 COUNTS INCLUDE 234 BEDS AT THE [facility] Last Admin: 10/19/23 05:55 Dose: 40 mg Ondansetron HCl (Ondansetron Hcl 4 Mg/2 Ml Vial) 4 mg IVPUSH Q8H PRN PRN Reason: Nausea and Vomiting Sodium Chloride (0.9 % Sodium Chloride Flush 3 Ml Syringe) 3 ml IVFLUSH QSHIFT COUNTS INCLUDE 234 BEDS AT THE [facility] Last Admin: 10/19/23 07:50 Dose: 3 ml Thiamine HCl (Thiamine Hcl 100 Mg Tablet) 100 mg PO DAILY COUNTS INCLUDE 234 BEDS AT THE [facility] Last Admin: 10/19/23 07:50 Dose: 100 mg Trazodone HCl (Trazodone Hcl 50 Mg Tablet) 50 mg PO BEDTIME COUNTS INCLUDE 234 BEDS AT THE [facility] Home Medications ?Medication ?Instructions ?Recorded ?Confirmed ?Last Taken ?Type diazepam 5 mg tablet 7.5 mg PO TID 10/17/23 10/18/23 Unknown History escitalopram oxalate 20 mg tablet 20 mg PO DAILY 10/17/23 10/18/23 Unknown History furosemide 20 mg tablet 20 mg PO DAILY 10/17/23 10/18/23 Unknown History furosemide 20 mg tablet 20 mg PO DAILY PRN Edema 10/17/23 10/18/23 Unknown History ibuprofen 800 mg tablet 800 mg PO BID PRN Pain 10/17/23 10/18/23 Unknown History meclizine 25 mg tablet 25 mg PO BID PRN Dizziness 10/17/23 10/18/23 Unknown History metformin 500 mg tablet 500 mg PO DAILY 10/17/23 10/18/23 Unknown History pantoprazole 40 mg tablet,delayed 40 mg PO BID 10/17/23 10/18/23 Unknown History release thiamine HCl (vitamin B1) 100 mg 100 mg PO DAILY 10/17/23 10/18/23 Unknown History tablet trazodone 50 mg tablet 50 mg PO BEDTIME 10/17/23 10/18/23 Unknown History Physical Exam Vital Signs: Vital Signs: Last Vital Signs Temp 98.6 F 10/19/23 07:36 Pulse 57 10/19/23 07:36 Resp 12 10/19/23 07:36 BP 107/56 L 10/19/23 07:36 Pulse Ox 93 10/19/23 07:36 O2 Del Method Room Air 10/19/23 07:36 BMI result Body Mass Index 52.1 Const: Other: General lethargic, in no acute distress. HEENT anicteric sclera, no nystagmus Neck supple no JVD. CVS regular rate rhythm, Respiratory lungs clear to auscultation, no respiratory distress, no wheeze, no rhonchi. Gastrointestinal abdomen soft, non tender, bowel sounds audible, no guarding , no rigidity. Extremities no edema. Neuro moving all 4 extremity, face symmetrical, speech clear, no nystagmus, normal finger-nose, gait not assessed. Skin no rash Psych appropriate affect Neuro: Other: She's alert and oriented x3 but somewhat slow in her responses. She has some nystagmus on lateral gaze for a few beats. Muscle tone and strength are normal. Reflexes symmetrical. Plantar response are flexor. She has a broad-based ataxic gait. 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 Recommendations: Alcohol rehabilitation. Thiamine 100 mg intravenous daily for 3 days followed by 100 mg by mouth daily for 3 months. PT, OT for gait and balance training. She should continue aspirin 81 mg a day. Monitor blood pr essure. Echocardiogram. Plan 48-year-old female patient with past medical history significant for alcohol abuse, depression currently resident of [facility] x1 month recovering from alcohol was seen at [facility] on due to symptoms of lethargy and falls and MRIs study showed bilateral multiple chronic cerebellar lacunar infarctions, patient was sent back to halfway but returned back to ED due to persistent falls and unsteady gait. Unsteady gait/recurrent falls Likely multifactorial due to history of alcohol abuse/chronic lacunar infarction of b/l cerebellar hemispheres Seen by PT they recommend short-term rehab Chronic bilateral cerebellar lacunar infarction History of borderline diabetes, no hypertension, no tobacco use disorder Continue Lipitor, aspirin Blood sugar 90, hemoglobin A1c 5.7, total cholesterol 123 LDL 79, stable blood pressures Follow echocardiogram PT recommend short-term rehab Check B12 folate Consult neurology History of alcohol use disorder Residing at [facility] for alcohol recovery x1 month Place on thiamine/folic acid On diazepam for withdrawal symptoms noted to be lethargic somnolent will reduce dose of diazepam to 2 mg t.i.d. from dose of 7.5 mg t.i.d. Mood disorder resume home medications Lexapro and trazodone Borderline diabetes stable blood sugars recommend low-calorie diet Morbid obesity recommend low-calorie diet and weight loss DVT prophylaxis Lovenox subQ Full code In my clinical judgment patient need continued inpatient hospitalization for further workup for unsteady gait recurrent falls and chronic lacunar infarct requiring expert consultation and safe disposition. Procedures Date of Service Date of Service: 10/19/23
[2023-10-19] MEDS: diazePAM 2 MG TABLET PO ×2 (15:44→21:08)
[2023-10-19 16:00] VITALS: BP 112/60; PULSE 59; RESP 18; TEMP 36.8; O2SAT 92
[2023-10-19] MEDS: Enoxaparin Sodium 40 MG/0.4 ML SYRINGE SUBCUT (19:49)
[2023-10-19 20:00] VITALS: BP 104/70; PULSE 63; RESP 18; TEMP 36.3; O2SAT 94
[2023-10-19] MEDS: Atorvastatin Calcium 40 MG TABLET PO (21:08)
[2023-10-19] MEDS: traZODone HCL 50 MG TABLET PO (21:08)
[2023-10-20 03:53] VITALS: BP 118/66; PULSE 59; RESP 18; TEMP 36.3; O2SAT 94
[2023-10-20] MEDS: Omeprazole 40 MG CAPSULE.DR PO (05:56)
[2023-10-20 08:19] VITALS: BP 119/64; PULSE 62; RESP 12; TEMP 36.2; O2SAT 93
[2023-10-20] MEDS: Thiamine HCL 200 MG in 0.9 % Sodium Chloride 100 ML 204 MG IV ×2 (08:26→19:17)
[2023-10-20] MEDS: 0.9 % Sodium Chloride Flush 3 ML SYRINGE IVFLUSH ×3 (08:30→19:20)
[2023-10-20] MEDS: Folic Acid 1 MG TABLET PO (08:59)
[2023-10-20] MEDS: Escitalopram Oxalate 20 MG TABLET PO (08:59)
[2023-10-20] MEDS: Aspirin Enteric Coated 81 MG TABLET.DR PO (08:59)
[2023-10-20] MEDS: diazePAM 2 MG TABLET PO ×3 (09:02→21:18)
[2023-10-20 10:47] LABS: Folate 5.5 ng/mL (> or = 4.0); Vitamin B12 662 pg/mL (200-900)
[2023-10-20 15:13] VITALS: BP 100/57; PULSE 55; RESP 18; TEMP 36.1; O2SAT 92
--- NOTE | 2023-10-20 16:14 | MHC.CM.PN ---
PT WILL NEED STR, [facility] HAS OFFERED (NO OTHER BED OFFERS A THIS TIME) PT IS AGREEABLE TO PLAN. [facility] HAS BEGUN AUTH FOR ADMISSION ON 10/20. CM WILL CONTINUE TO FOLLOW FOR ANY CHANGE IN PLAN.
--- NOTE | 2023-10-20 16:27 | HO.PM.IMPN ---
Subjective Subjective Date of Service: 10/20/23 Interval History: no dizziness no headache Review of Systems Review of Systems: Yes all other systems are reviewed and are negative Physical Exam Vital Signs: Vital Signs: Last Vital Signs Temp 97 F 10/20/23 15:13 Pulse 55 10/20/23 15:13 Resp 18 10/20/23 15:13 BP 100/57 L 10/20/23 15:13 Pulse Ox 92 10/20/23 15:13 O2 Del Method Room Air 10/20/23 15:13 BMI result Body Mass Index 52.1 Gen: in no acute distress HEENT: sclera anicteric, moist mucus membranes Neck: supple Lungs: clear to auscultation bilaterally Heart: regular rate and rhythm, no murmurs Abd: soft, non-tender, non-distended Ext: no edema Skin: warm/well-perfused Neuro: alert and oriented x3, no focal findings, no nystagmus, no dysmetria Psych: appropriate affect Objective Data Active Medications Acetaminophen (Acetaminophen 325 Mg Tablet) 650 mg PO Q6H PRN PRN Reason: Pain, Mild (Pain Scale 1-3) Aspirin (Aspirin Enteric Coated 81 Mg Tablet.) 81 mg PO DAILY [facility] Last Admin: 10/20/23 08:59 Dose: 81 mg Documented By: MARY Atorvastatin Calcium (Atorvastatin Calcium 40 Mg Tablet) 40 mg PO BEDTIME [facility] Last Admin: 10/19/23 21:08 Dose: 40 mg Documented By: SO Diazepam (Diazepam 2 Mg Tablet) 2 mg PO TID [facility] Last Admin: 10/20/23 16:22 Dose: 2 mg Documented By: MARY Docusate Sodium (Docusate Sodium 100 Mg Capsule) 100 mg PO DAILY PRN PRN Reason: Constipation Enoxaparin Sodium (Enoxaparin Sodium 40 Mg/0.4 Ml Syringe) 40 mg SUBCUT Q24H [facility] Last Admin: 10/19/23 19:49 Dose: 40 mg Documented By: SO Escitalopram Oxalate (Escitalopram Oxalate 20 Mg Tablet) 20 mg PO DAILY [facility] Last Admin: 10/20/23 08:59 Dose: 20 mg Documented By: MARY Folic Acid (Folic Acid 1 Mg Tablet) 1 mg PO DAILY [facility] Last Admin: 10/20/23 08:59 Dose: 1 mg Documented By: MARY Thiamine HCl 200 mg/ Sodium (Chloride) 102 mls @ 204 mls/hr IV Q12H [facility] Stop: 10/22/23 20:14 Last Infusion: 10/20/23 09:06 Dose: Infused Documented By: MARY Magnesium Hydroxide (Milk Of Magnesia 30 Ml Oral.Susp) 30 ml PO DAILY PRN PRN Reason: Constipation Meclizine HCl (Meclizine Hcl 25 Mg Tablet) 25 mg PO Q8H PRN PRN Reason: dizziness Melatonin (Melatonin 3 Mg Tablet) 3 mg PO BEDTIME PRN PRN Reason: Insomnia Pt Own (Clotrimazole -Betamethasone 1-0. 05 % Cream) 1 appl TOPICAL BID [facility] Last Admin: 10/20/23 09:01 Dose: 1 appl Documented By: MARY Omeprazole (Omeprazole 40 Mg Capsule.) 40 mg PO DAILY@0630 [facility] Last Admin: 10/20/23 05:56 Dose: 40 mg Documented By: SO Ondansetron HCl (Ondansetron Hcl 4 Mg/2 Ml Vial) 4 mg IVPUSH Q8H PRN PRN Reason: Nausea and Vomiting Sodium Chloride (0.9 % Sodium Chloride Flush 3 Ml Syringe) 3 ml IVFLUSH QSHIFT [facility] Last Admin: 10/20/23 16:22 Dose: 3 ml Documented By: MARY Thiamine HCl (Thiamine Hcl 100 Mg Tablet) 100 mg PO DAILY [facility] Last Admin: 10/19/23 07:50 Dose: 100 mg Documented By: ABAD Trazodone HCl (Trazodone Hcl 50 Mg Tablet) 50 mg PO BEDTIME [facility] Last Admin: 10/19/23 21:08 Dose: 50 mg Documented By: SO Labs Labs: Laboratory Results - last 24 hr 10/20/23 09:05 Vitamin B12 662 Folate 5.5 Assessment and Plan (1) Gait disturbance: Status: Acute Plan d3 48[facility] F [facility] resident with hx AUD, depression presented 10/16 with lethargy + falls, MRI showed bilateral chronic cerebellar lacunar infarctions; [facility] to [facility] but sent back in 10/17 with persistent falls + unsteady gait cerebellar degeneration - per Neurology: ataxic gait is most likely due to alcoholic cerebellar degeneration rather than the 3 small lacunar cerebellar infarcts - seen by PT, STR recomemnded chronic cerebellar infarcts - ASA/statin. TTE mild LVH + LVEF 60-65%, could not r/o shunting due to technical limitations AUD - at [facility] for EtOH recovery >1mo - placed on IV thiamine + PO folic acid; thiamine level pending - on diazepam for withdrawal symptoms; noted to be lethargic, so reduced dose of diazepam to 2 mg t.i.d. from dose of 7.5 mg t.i.d. mood disorder - escitalopram + trazodone borderline DM2 - diet-controlled morbid obesity - diet/exercise counseling VTE ppx- [facility]WH dispo - STR Total time managing care of this patient today: 35 minutes. Quality Stroke Does the patient have a stroke diagnosis?: No VTE Prior VTE?: No VTE Risk Level:: Medical - moderate - high VTE Device Contraindication: Treatment Not Indicated VTE Drug Contraindication: N/A - Med Ordered
[2023-10-20] MEDS: Enoxaparin Sodium 40 MG/0.4 ML SYRINGE SUBCUT (19:20)
[2023-10-20 19:23] VITALS: BP 104/56; PULSE 60; RESP 18; TEMP 36.2; O2SAT 93
[2023-10-20] MEDS: Atorvastatin Calcium 40 MG TABLET PO (21:18)
[2023-10-20] MEDS: traZODone HCL 50 MG TABLET PO (21:18)
[2023-10-21 02:48] VITALS: BP 135/78; PULSE 100; RESP 17; TEMP 36.2; O2SAT 92
[2023-10-21] MEDS: Omeprazole 40 MG CAPSULE.DR PO (06:21)
[2023-10-21 07:19] VITALS: BP 122/59; PULSE 68; RESP 16; TEMP 36.3; O2SAT 92
[2023-10-21 07:29] LABS: Glucose, Whole Blood 90 mg/dL (60-115)
[2023-10-21] MEDS: Thiamine HCL 200 MG in 0.9 % Sodium Chloride 100 ML 204 MG IV (10:17)
[2023-10-21] MEDS: 0.9 % Sodium Chloride Flush 3 ML SYRINGE IVFLUSH ×2 (10:20→14:19)
[2023-10-21] MEDS: Escitalopram Oxalate 20 MG TABLET PO (10:22)
[2023-10-21] MEDS: Aspirin Enteric Coated 81 MG TABLET.DR PO (10:23)
[2023-10-21] MEDS: Folic Acid 1 MG TABLET PO (10:23)
--- NOTE | 2023-10-21 12:53 | P.PNIM_ITS ---
Subjective Subjective Date of Service: 10/21/23 Interval History: tired, no dizziness Review of Systems Review of Systems: Yes all other systems are reviewed and are negative Physical Exam Vital Signs: Vital Signs: Last Vital Signs Temp 97.4 F 10/21/23 07:19 Pulse 68 10/21/23 07:19 Resp 16 10/21/23 07:19 BP 122/59 L 10/21/23 07:19 Pulse Ox 92 10/21/23 07:19 O2 Del Method Room Air 10/21/23 07:19 BMI result Body Mass Index 52.1 Gen: in no acute distress HEENT: sclera anicteric, moist mucus membranes Neck: supple Lungs: clear to auscultation bilaterally Heart: regular rate and rhythm, no murmurs Abd: soft, non-tender, non-distended Ext: no edema Skin: warm/well-perfused Neuro: alert and oriented x3, no focal findings, no nystagmus, no dysmetria Psych: appropriate affect Objective Data Active Medications Acetaminophen (Acetaminophen 325 Mg Tablet) 650 mg PO Q6H PRN PRN Reason: Pain, Mild (Pain Scale 1-3) Aspirin (Aspirin Enteric Coated 81 Mg Tablet.) 81 mg PO DAILY [facility] Last Admin: 10/21/23 10:23 Dose: 81 mg Documented By: ZEE Atorvastatin Calcium (Atorvastatin Calcium 40 Mg Tablet) 40 mg PO BEDTIME [facility] Last Admin: 10/20/23 21:18 Dose: 40 mg Documented By: SO Diazepam (Diazepam 2 Mg Tablet) 2 mg PO TID [facility] Last Admin: 10/21/23 10:24 Dose: Not Given Documented By: ZEE Non-Admin Reason: pt drowsy Docusate Sodium (Docusate Sodium 100 Mg Capsule) 100 mg PO DAILY PRN PRN Reason: Constipation Enoxaparin Sodium (Enoxaparin Sodium 40 Mg/0.4 Ml Syringe) 40 mg SUBCUT Q24H [facility] Last Admin: 10/20/23 19:20 Dose: 40 mg Documented By: SO Escitalopram Oxalate (Escitalopram Oxalate 20 Mg Tablet) 20 mg PO DAILY [facility] Last Admin: 10/21/23 10:22 Dose: 20 mg Documented By: ZEE Folic Acid (Folic Acid 1 Mg Tablet) 1 mg PO DAILY [facility] Last Admin: 10/21/23 10:23 Dose: 1 mg Documented By: ZEE Thiamine HCl 200 mg/ Sodium (Chloride) 102 mls @ 204 mls/hr IV Q12H [facility] Stop: 10/22/23 20:14 Last Infusion: 10/21/23 11:17 Dose: Infused Documented By: ZEE Magnesium Hydroxide (Milk Of Magnesia 30 Ml Oral.Susp) 30 ml PO DAILY PRN PRN Reason: Constipation Meclizine HCl (Meclizine Hcl 25 Mg Tablet) 25 mg PO Q8H PRN PRN Reason: dizziness Melatonin (Melatonin 3 Mg Tablet) 3 mg PO BEDTIME PRN PRN Reason: Insomnia Pt Own (Clotrimazole -Betamethasone 1-0. 05 % Cream) 1 appl TOPICAL BID [facility] Last Admin: 10/21/23 10:23 Dose: 1 appl Documented By: ZEE Omeprazole (Omeprazole 40 Mg Capsule.Dr) 40 mg PO DAILY@0630 [facility] Last Admin: 10/21/23 06:21 Dose: 40 mg Documented By: SO Ondansetron HCl (Ondansetron Hcl 4 Mg/2 Ml Vial) 4 mg IVPUSH Q8H PRN PRN Reason: Nausea and Vomiting Sodium Chloride (0.9 % Sodium Chloride Flush 3 Ml Syringe) 3 ml IVFLUSH QSHIFT [facility] Last Admin: 10/21/23 10:20 Dose: 3 ml Documented By: ZEE Thiamine HCl (Thiamine Hcl 100 Mg Tablet) 100 mg PO DAILY [facility] Last Admin: 10/19/23 07:50 Dose: 100 mg Documented By: ABAD Trazodone HCl (Trazodone Hcl 50 Mg Tablet) 50 mg PO BEDTIME [facility] Last Admin: 10/20/23 21:18 Dose: 50 mg Documented By: SO Labs Labs: Laboratory Results - last 24 hr 10/21/23 07:25 POC Glucose 90 Assessment and Plan (1) Gait disturbance: Status: Acute Plan d4 48yo F custodial resident with hx AUD, depression presented 10/16 with lethargy + falls, MRI showed bilateral chronic cerebellar lacunar infarctions; pt sent back to custodial but sent back in 10/17 with persistent falls + unsteady gait cerebellar degeneration - per Neurology: ataxic gait is 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 TTE mild LVH + LVEF 60-65%, could not r/o shunting due to technical limitations AUD - at custodial for EtOH recovery >1mo - placed on IV thiamine + PO folic acid; thiamine level pending - on diazepam for withdrawal symptoms; noted to be lethargic, so reduced dose of diazepam to 2 mg t.i.d. from dose of 7.5 mg t.i.d. mood disorder - escitalopram + trazodone borderline DM2 - diet-controlled morbid obesity - diet/exercise counseling VTE ppx- LMWH dispo - STR Total time managing care of this patient today: 35 minutes. Quality Stroke Does the patient have a stroke diagnosis?: No VTE Prior VTE?: No VTE Risk Level:: Medical - moderate - high VTE Device Contraindication: Treatment Not Indicated VTE Drug Contraindication: N/A - Med Ordered
--- NOTE | 2023-10-21 13:24 | MHC.CM.PN ---
Addendum entered by Dianne Pedraza 10/21/23 14:25: [facility] HAS OBTAINED MD JARVIS/RN AWARE. BLS TRANSPORT BOOKED FOR 6 PM VIA [facility] Original Note: PT IS TO BE MEDICALLY CLEARED FOR DC TO STR AT [facility]. [facility] HAD STARTED INSURANCE AUTH 10/19 AND STILL DOES NOT HAVE APPROVAL. CM CONTINUES TO AWAIT INSURANCE AUTH APPROVAL FROM CENTER.
--- NOTE | 2023-10-21 14:25 | P.DS_ITS ---
DS: Providers Provider Date of Service: 10/21/23 Date of admission: 10/20/23 14:17 Date of discharge: 10/21/23 Primary care physician: LOC Delaney Consults: 10/19/23 07:45 Consult to Neurology Routine Consulting Provider: [facility] Reason for consultation: ataxia/ch cerebellar infracts Has provider been notified: No DS: Diagnosis Discharge Diagnosis (1) Gait disturbance: Status: Acute (2) Alcoholic cerebellar degeneration: Status: Acute (3) Chronic cerebrovascular accident (CVA): Status: Acute DS: Summary Hospital Course Hospital Course: from admission H+P by hospitalist Javier Sidhu, 10/18/23: 48-year-old female patient resident of [place] [facility] with past medical history significant for borderline diabetes, morbid obesity, fatty liver currently residing in a [place] [facility] for last 1 month for alcohol recovery and treatment for depression at baseline she ambulates with a cane , but for last 7-10 days she noticed losing balance and falling, she denies associated headache, no nausea, no vomiting, she noticed vertigo 2-3 weeks ago for which she was prescribed meclizine 10 days ago with good affect , she was also recently started on trazodone, patient was seen at [facility] yesterday for symptoms of ataxia and lethargy, MRI 10/16 showed no acute intracranial finding, no acute infarction but showed multiple chronic cerebellar lacunar infarctions bilaterally and mild chronic microangiopathy, patient was placed on aspirin and statins and was sent back to [facility] for outpatient workup, however patient was sent back to ED today due to persistent symptoms of fall unsteady gait and [facility] was unable to take care of patient, at present patient denies any headache, no lightheadedness, no dizziness, denies weakness numbness, no nausea, no vomiting, she stopped drinking 1 month ago, quit smoking 2 years ago, denies urinary symptoms of urgency frequency, no fevers, no chills, she will be admitted to [facility] due to unsteady gait recurrent falls and for further evaluation of cerebellar lacunar infarcts. 48yo F [facility] resident with hx AUD, depression who presented to [facility] on 10/17/23 with lethargy + falls, MRI showed bilateral chronic cerebellar lacunar infarctions. She was sent back to her [place] [facility] but returned on 10/17 with persistent falls + unsteady gait. She as admitted to the medical-surgical floor and Neurology was consulted and opined that ataxic gait is most likely due to alcoholic cerebellar degeneration rather than the 3 small lacunar cerebellar infarcts . She was started on aspirin and statin for secondary prevention. TTE showed mild LVH, LVEF 60-65%; study was technically limited. She was given IV thiamine and PO folate; thiamine level pending. Diazepam for alcohol withdrawal was tapered to 2 mg tid and further to 1 mg tid prn upon discharge. She was seen by PT and STR was recommended. She was discharged to [facility] for STR. Time Attestation Discharge Coordination Time (in mins): 35 Quality: Safe Use of Opioids Does Pt have an Active Cancer Diagnosis on the Problem List?: No Quality: Stroke Does the patient have a stroke diagnosis?: No Physical Exam Vital Signs: Vital Signs: Last Vital Signs Temp 97.4 F 10/21/23 07:19 Pulse 68 10/21/23 07:19 Resp 16 10/21/23 07:19 BP 122/59 L 10/21/23 07:19 Pulse Ox 92 10/21/23 07:19 O2 Del Method Room Air 10/21/23 07:19 BMI result Body Mass Index 52.1 Gen: in no acute distress HEENT: sclera anicteric, moist mucus membranes Neck: supple Lungs: clear to auscultation bilaterally Heart: regular rate and rhythm, no murmurs Abd: soft, non-tender, non-distended Ext: no edema Skin: warm/well-perfused Neuro: alert and oriented x3, no focal findings, no nystagmus, no dysmetria Psych: appropriate affect DS: Data Data Completed and Pending Completed studies during hospitalization [Text1]: Laboratory Results POC Glucose 90 mg/dL (60-115) 10/21/23 07:25 Estimat Average Glucose 117 mg/dL 10/19/23 05:17 Hemoglobin A1c % 5.7 % (<6.0) 10/19/23 05:17 Triglycerides 112 mg/dL (<150) 10/19/23 05:17 Cholesterol 123 mg/dL (<200) 10/19/23 05:17 LDL Cholesterol, Calc 79 mg/dL (<100) 10/19/23 05:17 HDL Cholesterol 22 mg/dL (>40) L 10/19/23 05:17 Vitamin B12 662 pg/mL (200-900) 10/20/23 09:05 Folate 5.5 ng/mL (> or = 4.0) 10/20/23 09:05 TSH 1.26 uIU/mL (0.32-4.0) 10/19/23 05:17 Impressions Head/Neck CTA 10/18/23 17:51 IMPRESSION: 1. No evidence of acute intracranial hemorrhage or edematous territorial infarction. 2. CTA of the head and neck without proximal occlusion or flow-limiting stenosis. 3. Chronic lacunar infarcts of the left cerebellar hemisphere. Mild underlying microangiopathy. Discharge Plan Discharge Anticipated Discharge Date/Time: 10/21/23 14:21 Patient Disposition: Xfer SNF Discharge Diagnosis: alcoholic cerebellar degeneration cerebellar infarcts (chronic) Referrals: [facility] [Outside] - 1 Week (TRANSFER FOR SHORT TERM REHAB) Tiffanie Mesa PA [Primary Care Provider] - 1 Week Discharge Medications: New atorvastatin 40 mg Tablet 40 mg PO BEDTIME Qty: 30 0RF aspirin 81 mg Tablet,Delayed Release (Dr/Ec) 81 mg PO DAILY Qty: 30 0RF diazepam 2 mg Tablet 2 mg PO TID PRN (Reason: alcohol withdrawal) Qty: 9 0RF folic acid 1 mg Tablet 1 mg PO DAILY Qty: 30 0RF Continued metformin 500 mg tablet 500 mg PO DAILY trazodone 50 mg tablet 50 mg PO BEDTIME ibuprofen 800 mg tablet 800 mg PO BID PRN (Reason: Pain) thiamine HCl (vitamin B1) 100 mg tablet 100 mg PO DAILY meclizine 25 mg tablet 25 mg PO BID PRN (Reason: Dizziness) escitalopram oxalate 20 mg tablet 20 mg PO DAILY pantoprazole 40 mg Tablet,Delayed Release (Dr/Ec) 40 mg PO BID furosemide 20 mg Tablet 20 mg PO DAILY furosemide 20 mg Tablet 20 mg PO DAILY PRN (Reason: Edema) clotrimazole-betamethasone 1-0.05 % cream 1 appl topical BID Discontinued diazepam 5 mg tablet 7.5 mg PO TID Discharge Orders: Discharge Order (Routine); Ordered 10/21/23 Ordered By: Melissa Castro Diet: Advance to usual diet Activity on Discharge: As tolerated Stand Alone Forms: Patient Portal Discharge page Print Language: Burkinan Care Plan Goals: improvement in gait stability Health Concerns: alcoholic cerebellar degeneration cerebellar infarcts (chronic) Plan of Treatment: transfer to [facility] for physical therapy; anticipated length of stay less than 30 days continue thiamine + folate take diazepam as needed for alcohol withdrawal take aspirin and atorvastatin for stroke prevention Please follow up with your primary care doctor within 1 week of discharge from [facility] Return to the hospital if you experience recurrent or worsening symptoms. Assessment: See Discharge Summary.
--- NOTE | 2023-10-21 14:30 | PC.NURSE ---
patient drowsy,Diazepam held,Dr. Castro notified
[2023-10-21 15:31] VITALS: BP 103/55; PULSE 60; RESP 16; TEMP 36.8; O2SAT 92
[2023-10-29 11:24] LABS: Vitamin B1 >1200 nmol/L (8-30)
== END 2023-10-21 18:44 | disposition skilled nursing facility (03) | DRG 42 ==
LOC: HO.ED 18:46 → HO.EDOVER 19:25 → HO.S3 20:53
PROVIDERS: Admitting Provider Hospitalist; Emergency Provider Internal Medicine; PCP Physician Assistant; Visit Provider Family Medicine
DX: G31.2 Degeneration of nervous system due to alcohol (principal); Z68.43 Body mass index [BMI] 50.0-59.9, adult; F10.11 Alcohol abuse, in remission; Z86.73 Personal history of transient ischemic attack (TIA), and cerebral infarction without residual deficits; F39 Unspecified mood [affective] disorder; R73.03 Prediabetes; E66.01 Morbid (severe) obesity due to excess calories; Z79.82 Long term (current) use of aspirin; Z79.84 Long term (current) use of oral hypoglycemic drugs; Z79.899 Other long term (current) drug therapy
CPT/HCPCS: 36415; 70496; 70498; 80061; 82607; 82746; 82947; 83036; 84425; 84443; 93306; 97116; 97162; 97530; 99285; J1650; J3411; Q9957; Q9967

== ENCOUNTER 2023-10-18 18:30 | Outpatient (BNV) | payer MEDICAID, SELFPAY | END 2023-10-19 07:00 | PROVIDERS: Admitting Provider Hospitalist; Emergency Provider Internal Medicine; Visit Provider Internal Medicine Cardiovascular Disease | DX: I63.9 Cerebral infarction, unspecified (principal) | CPT/HCPCS: 93306 ==

== ENCOUNTER → 2023-10-18 18:30 | Outpatient (BNV) | payer MEDICAID, SELFPAY | PROVIDERS: Admitting Provider Hospitalist; Emergency Provider Internal Medicine; Visit Provider Hospitalist | DX: R26.9 Unspecified abnormalities of gait and mobility (principal); G31.2 Degeneration of nervous system due to alcohol; I63.542 Cerebral infarction due to unspecified occlusion or stenosis of left cerebellar artery | CPT/HCPCS: 99223; 99232; 99239; 99499 ==

== ENCOUNTER → 2023-10-18 18:30 | Outpatient (BNV) | payer MEDICAID, SELFPAY | PROVIDERS: Admitting Provider Hospitalist; Emergency Provider Internal Medicine; Visit Provider Psychiatry & Neurology Neurology | DX: R29.6 Repeated falls (principal); F10.288 Alcohol dependence with other alcohol-induced disorder; G32.81 Cerebellar ataxia in diseases classified elsewhere | CPT/HCPCS: 99222 ==

== ENCOUNTER 2023-12-19 09:33 | Inpatient (IN) | payer MEDICAID, SELFPAY ==
[2023-12-19] VITALS (9 sets, daily range): BP systolic 77–124; BP diastolic 35–71; PULSE 39–70; RESP 14–18; TEMP 36.1–36.8; O2SAT 93–97; BMI 45.0
--- NOTE | 2023-12-19 09:37 | ECG_ITS ---
Test Reason : yareli cardic Blood Pressure : / mmHG Vent. Rate : 043 BPM Atrial Rate : 043 BPM P-R Int : 174 ms QRS Dur : 092 ms QT Int : 506 ms P-R-T Axes : 052 013 012 degrees QTc Int : 427 ms Marked sinus bradycardia Abnormal ECG When compared with ECG of 17-OCT-2023 09:36, No significant change was found Referred By: Jimena Bishop Electronically Signed By:ELIJAH SOUSA MD
--- NOTE | 2023-12-19 09:54 | ED_ITS ---
HPI - Arrhythmia/Palpitations General Chief Complaint: Arrhythmia/Palpitations Stated Complaint: HYPOTENSION BRADYCARDIA Time Seen by Provider: 12/19/23 09:34 Source: patient and old records reviewed Mode of arrival: EMS Limitations: no limitations History of Present Illness ED Provider: BRIANNA OWEN narrative: 48 yo female with PMH of CVA prior old cerebellar infarctions, chronic leg edema, borderline diabetes, fatty liver, HLD, GERD, vertigo, hx of orthostatic hypotension and bradycardia on and off for 7 years not on CCB or bblocker and recently taken off her lasix Tuesday, currently in facility s/p alcohol recovery who reports dizziness poor PO intake and sleeping alot due to changes in her sleep pattern attributed to getting her night meds earlier than usual and being asked to get up earlier. She was found to be orthostatic and bradycardic by EMS. No CP/SOB, no confusion, no GIB symptoms she has had this before and reports it has always responded to fluids and eating better. MD complaint: irregular heart beat (bradycardia) Onset (ago): week(s) (2+) Duration: intermittent Severity: mild Context: occurred during rest Associated symptoms: other (poor PO intake, dizziness when standing) Related Data Home Medications ?Medication ?Instructions ?Recorded ?Confirmed escitalopram oxalate 20 mg tablet 20 mg PO DAILY 10/17/23 10/18/23 furosemide 20 mg tablet 20 mg PO DAILY 10/17/23 10/18/23 furosemide 20 mg tablet 20 mg PO DAILY PRN Edema 10/17/23 10/18/23 ibuprofen 800 mg tablet 800 mg PO BID PRN Pain 10/17/23 10/18/23 meclizine 25 mg tablet 25 mg PO BID PRN Dizziness 10/17/23 10/18/23 metformin 500 mg tablet 500 mg PO DAILY 10/17/23 10/18/23 pantoprazole 40 mg tablet,delayed 40 mg PO BID 10/17/23 10/18/23 release thiamine HCl (vitamin B1) 100 mg 100 mg PO DAILY 10/17/23 10/18/23 tablet trazodone 50 mg tablet 50 mg PO BEDTIME 10/17/23 10/18/23 clotrimazole-betamethasone 1 1 appl topical BID 10/19/23 10/19/23 %-0.05 % topical cream Previous Rx's ?Medication ?Instructions ?Recorded aspirin 81 mg tablet,delayed 81 mg PO DAILY #30 tabs 10/21/23 release atorvastatin 40 mg tablet 40 mg PO BEDTIME #30 tabs 10/21/23 diazepam 2 mg tablet 2 mg PO TID PRN alcohol withdrawal 10/21/23 #9 tabs folic acid 1 mg tablet 1 mg PO DAILY #30 tabs 10/21/23 Allergies Allergy/AdvReac Type Severity Reaction Status Date / Time No Known Allergies Allergy Verified 12/19/23 09:47 Review of Systems 2 Review of Systems: Constitutional : No Fever, No Chills, No Fatigue, pos anorexia ENT/Mouth : No sore throat, No Rhinorrhea Eyes: No Eye Pain, No Swelling, No Redness Cardiovascular : No Chest Pain, No SOB, No Dyspnea on Exertion Respiratory : No Cough, No Sputum Gastrointestinal : No Nausea, No Vomiting, No Diarrhea, No abdominal Pain Genitourinary : No Dysuria, No Urinary Frequency, No Hematuria, Musculoskeletal : No joint pain, No Myalgias, No Joint Swelling Skin : No Skin Lesions, No rash Neuro : No Weakness, No Numbness, pos Dizziness, no Headache Psych : No Anxiety/Panic, No Depression Heme/Lymph: No Bruising, No Bleeding,No Lymphadenopathy Endocrine : No Polyuria, No Polydipsia All other systems reviewed and are negative [facility] Past Medical History Attestation statement: The following information was validated with the patient. Source: old records reviewed Medical History (Updated 12/19/23 @ 13:15 by Jimena Bishop DO) Hyperlipidemia Gait disturbance Alcoholic cerebellar degeneration Chronic cerebrovascular accident (CVA) Social History Social History Household Members: Other Household Members Other:: snf Housing: Other Unable to assess alcohol history related to: Unable to respond Alcohol intake: former Patient Tobacco Use Status: Former Tobacco user Tobacco use type: Cigarette Smoked in Last 30 Days: No e-Cigarette/Vaping Use: Never Used Advance Directives: Yes Advance Directives on File: Yes Advance Directives Date on File: 10/24/23 Patient : No service: No Physical Exam 2 Vital Signs: Vital Signs: Last Vital Signs Temp 98.3 F 12/19/23 12:17 Pulse 70 12/19/23 12:17 Resp 18 12/19/23 12:17 BP 124/71 12/19/23 12:17 Pulse Ox 97 08/05/24 12:17 O2 Del Method Room Air 12/19/23 12:17 BMI result Body Mass Index 45.0 Appearance: Alert. Oriented X3. No acute distress. Eyes: Pupils equal, round and reactive to light. ENT: Pharynx normal. Neck: Normal inspection. Neck supple. CVS: bradycardic heart rate and rhythm. Pulses normal. Respiratory: No respiratory distress. Breath sounds normal. Abdomen: Soft and non-tender. Skin: Skin warm and dry. Normal skin color. Normal skin turgor. Extremities: No lower extremity edema. Neuro: Oriented X 3. No motor deficit. No sensory deficit. Course Course Course Narrative: hypotension due to orthostatics not infection or severe sepsis Reevaluation(s) Reevaluation #1: HR and BP responding to fluids Medications Administered Discontinued Medications Generic Name Dose Route Start Last Admin Trade Name Freq PRN Reason Stop Dose Admin Lactated Ringer's 1,000 mls @ 999 mls/hr 12/19/23 09:43 12/19/23 12:00 Lr IV 12/19/23 10:43 Infused .Q1H1M ONE Infusion Lactated Ringer's 1,000 mls @ 999 mls/hr 12/19/23 09:44 12/19/23 10:37 Lr IV 12/19/23 10:44 Infused .Q1H1M ONE Infusion Medical Decision Making Medical Decision Making [facility] Narrative: 48 yo female with PMH of CVA prior old cerebellar infarctions, chronic leg edema, borderline diabetes, fatty liver, HLD, GERD, vertigo, hx of orthostatic hypotension and bradycardia at this time she is not symptomatic not on bblocker or CCB will attempt to hydrate x 2L check lytes, TSH, lyme and obtain ortho VS. She denies CP/SOB, GIB symptoms and she is not toxic appearing. Differential Diagnosis Differential Diagnoses: The differential diagnosis associated with the presentation includes dehydration, thyroid disease Admission/Observation Consideration of admission/observation: Escalation of care including admission/observation considered did respond to fluids but JOHN will admit Consult Healthcare Provider Management of the patient was discussed with: Hospitalist (will admit) Lab Data [facility] Lab Attestation statement: I reviewed the patient's lab results. trop flat x 2 12/19/23 10:12 12/19/23 10:12 Labs: Lab Results 12/19/23 12/19/23 Range/Units 10:12 12:28 WBC 5.0 (4.8-10.8) X10*3/uL RBC 4.58 (4.20-5.50) X10*6/uL Hgb 14.7 (12.0-16.0) g/dl Hct 42.3 (37.0-47.0) % MCV 92.4 (80.0-98.0) fL MCH 32.1 (27.0-33.0) pg MCHC 34.8 (31.0-35.0) g/dl RDW 12.0 (11.0-16.0) % Plt Count 180 (160-400) X10*3/uL MPV 9.6 (9.4-12.3) fL Immature Gran % (Auto) 0.0 (0.0-0.4) % Neut % (Auto) 42.3 L (45-73) % Lymph % (Auto) 44.3 H (20-40) % Cannon % (Auto) 9.4 (2-11) % Eos % (Auto) 2.8 (0-4) % Baso % (Auto) 1.2 (0-2) % Lymph # (Auto) 2.2 (1.2-4.9) X10*3/uL Cannon # (Auto) 0.5 (0.1-1.2) X10*3/uL Eos # (Auto) 0.1 (0.0-0.4) X10*3/uL Baso # (Auto) 0.1 (0.0-0.2) X10*3/uL Abs Immat Gran (auto) 0.00 (0.00-0.03) X10*3/uL Absolute Neuts (auto) 2.1 (2.0-8.3) x10*3/uL Absolute Nucleated RBC 0.000 (0.0-0.012) X10*3/uL Nucleated RBC % (auto) 0.0 (0.0-0.2) /100WBC Sodium 141 (135-145) mmol/L Potassium 3.4 (3.3-5.1) mmol/L Chloride 101 (96-108) mmol/L Carbon Dioxide 28 (22-29) mmol/L Anion Gap 15 (12-20) BUN 29 H (9-16) mg/dL Creatinine 2.24 H (0.5-1.4) mg/dL Estim Creat Clear Calc 40.3 Estimated GFR 23 Random Glucose 82 (60-115) mg/dL Calcium 9.9 (8.4-10.2) mg/dL Magnesium 1.7 (1.6-2.6) mg/dL Total Bilirubin 0.7 (0.0-1.0) mg/dL Direct Bilirubin 0.2 (0.0-0.5) mg/dL AST 29 (5-31) U/L ALT 21 (0-31) U/L Alkaline Phosphatase 63 (39-117) U/L Troponin I High Sens 7.0 7.8 (<3.5-17.0) ng/L Total Protein 7.1 (6.5-8.0) g/dL Albumin 3.8 (3.5-5.0) g/dL TSH 2.30 (0.32-4.0) uIU/mL Independent Interpretation I performed an independent interpretation of an: EKG Interpretation: Rate: 43 Rhythm: sinus bradycardia [place]: normal Normal P waves. Normal ALOK. Normal QRS complex. ST T wave : inverted t wave III, no RAFITA qTC: 427 prior studies: no acute ischemia The study has been interpreted contemporaneously by me. EKG #2 Rate: 43 Rhythm: sinus bradycardia [place]: normal Normal P waves. Normal ALOK. Normal QRS complex. ST T wave : no RAFITA, inverted t wave III qTC: 447 prior studies: no change no acute ischemia The study has been interpreted contemporaneously by me. . Independent Historian Clinical information obtained from an independent historian. History obtained from or confirmed by: EMS External Record Review External record reviewed: Inpatient record and Outpatient record Critical Care Time Critical Care Time Critical Care Time: Yes Total Critical Care Time: 45 Attestation: IVF x 2L, review of records, repeat labs, admission I attest to this time spent taking care of the patient Discharge Plan Discharge Clinical Impression: Bradycardia, sinus, JOHN (acute kidney injury), Acute hypotension Patient Disposition: Admitted As Inpatient Prescriptions: No Action metformin 500 mg tablet 500 mg PO DAILY trazodone 50 mg tablet 50 mg PO BEDTIME ibuprofen 800 mg tablet 800 mg PO BID PRN (Reason: Pain) thiamine HCl (vitamin B1) 100 mg tablet 100 mg PO DAILY meclizine 25 mg tablet 25 mg PO BID PRN (Reason: Dizziness) escitalopram oxalate 20 mg tablet 20 mg PO DAILY pantoprazole 40 mg Tablet,Delayed Release (Dr/Ec) 40 mg PO BID furosemide 20 mg Tablet 20 mg PO DAILY furosemide 20 mg Tablet 20 mg PO DAILY PRN (Reason: Edema) clotrimazole-betamethasone 1-0.05 % cream 1 appl topical BID atorvastatin 40 mg Tablet 40 mg PO BEDTIME Qty: 30 0RF aspirin 81 mg Tablet,Delayed Release (Dr/Ec) 81 mg PO DAILY Qty: 30 0RF diazepam 2 mg Tablet 2 mg PO TID PRN (Reason: alcohol withdrawal) Qty: 9 0RF folic acid 1 mg Tablet 1 mg PO DAILY Qty: 30 0RF Print Language: Gambian
[2023-12-19] MEDS: Lactated Ringers 1,000 ML 999 ML IV ×2 (10:00→10:23)
--- NOTE | 2023-12-19 10:13 | PC.NURSE ---
was unable to tolerate standing for orthos. Orthos not significant. reported cp and feeling lightheaded after sitting for over 5 minutes. skin pwd. no change/ectopy on monitor. 2nd fluid bolus up and patient in trandelenburg
--- NOTE | 2023-12-19 10:15 | ECG_ITS ---
Test Reason : CHEST PAIN Blood Pressure : / mmHG Vent. Rate : 043 BPM Atrial Rate : 043 BPM P-R Int : 146 ms QRS Dur : 096 ms QT Int : 530 ms P-R-T Axes : 046 013 005 degrees QTc Int : 447 ms Marked sinus bradycardia Possible Inferior infarct , age undetermined Abnormal ECG When compared with ECG of 19-DEC-2023 09:36, No significant change was found Referred By: Jimena Bishop Electronically Signed By:ELIJAH SOUSA MD
[2023-12-19 10:22] LABS: MANUAL DIFF FLAG NO
[2023-12-19 10:24] LABS: Basophils Absolute Auto 0.1 X10*3/uL (0.0-0.2); Basophils Percent Auto 1.2 % (0-2); Eosinophils Absolute Auto 0.1 X10*3/uL (0.0-0.4); Eosinophils Percent Auto 2.8 % (0-4); Hematocrit 42.3 % (37.0-47.0); Hemoglobin 14.7 g/dl (12.0-16.0); Lymphocytes Absolute Auto 2.2 X10*3/uL (1.2-4.9); Lymphocytes Percent Auto 44.3 % (20-40); Mean Corpuscular HGB Conc 34.8 g/dl (31.0-35.0); Mean Corpuscular Hemoglobin 32.1 pg (27.0-33.0); Mean Corpuscular Volume 92.4 fL (80.0-98.0); Mean Platelet Volume 9.6 fL (9.4-12.3); Monocytes Absolute Auto 0.5 X10*3/uL (0.1-1.2); Monocytes Percent Auto 9.4 % (2-11); Neutrophils Absolute Auto 2.1 x10*3/uL (2.0-8.3); Neutrophils Percent Auto 42.3 % (45-73); Platelet Count 180 X10*3/uL (160-400); Red Blood Count 4.58 X10*6/uL (4.20-5.50)
[2023-12-19 10:51] LABS: Alanine Aminotransferase 21 U/L (0-31); Albumin Level 3.8 g/dL (3.5-5.0); Alkaline Phosphatase 63 U/L (39-117); Anion Gap 15 (12-20); Aspartate Amino Transferase 29 U/L (5-31); Bilirubin Direct 0.2 mg/dL (0.0-0.5); Bilirubin Total 0.7 mg/dL (0.0-1.0); Blood Urea Nitrogen 29 mg/dL (9-16); Calcium 9.9 mg/dL (8.4-10.2); Carbon Dioxide 28 mmol/L (22-29); Chloride 101 mmol/L (96-108); Creatinine Clr Calc Pharmacy 40.3; Estimated Glomerular Filt Rate 23; Glucose Random 82 mg/dL (60-115); Magnesium 1.7 mg/dL (1.6-2.6); Potassium 3.4 mmol/L (3.3-5.1); Sodium 141 mmol/L (135-145); Total Protein 7.1 g/dL (6.5-8.0)
--- NOTE | 2023-12-19 11:19 | PC.NURSE ---
resting quietly. skin pwd. denies CP at this time.
[2023-12-19 13:01] LABS: Troponin-I High Sensitivity 7.8 ng/L (<3.5-17.0)
--- NOTE | 2023-12-19 13:42 | P.HPHOSP_ITS ---
History of Present Illness Date of Service: 12/19/23 Chief Complaint: Dizzy, bradycardia and Hypotension 48-year-old female patient resident of residential with past medical history significant for borderline diabetes, morbid obesity, fatty liver currently residing in a residential for last 1 month for alcohol recovery and treatment for depression at baseline she ambulates with a cane. She presents with dizziness and noted to be hypotensive and bradardic. She has been on Lasix for lower extremity edema but was stopped last. She reports not eating well or drinking enough. Her blood pressure was reported to be 90/60 at the house. Her blood presure profiles is as follow since she came to the ED.. She has been given IVF and HR has been noted to in 40s without heart block. She take no beta bridgette, calcium chanels bloacker or clonidine. Additionally she is found have a serum creatine of 2.24 which is up from 1.23 on October 17 2023. She has no nausea, vomitting or diarrhea. Review of Systems 2 Review of Systems: Gen: no fever Resp: no sob, no cough CV: no chest, no FRANKS, no leg edema GI: No n/v, no abd pain Neuro: No confusion Yes all other systems are reviewed and are negative [facility] Medical History (Updated 12/19/23 @ 13:15 by Jimena Bishop DO) Hyperlipidemia Gait disturbance Alcoholic cerebellar degeneration Chronic cerebrovascular accident (CVA) Social History Household Members: Other Household Members Other:: residential Housing: Other Unable to assess alcohol history related to: Unable to respond Alcohol intake: former Patient Tobacco Use Status: Former Tobacco user Tobacco use type: Cigarette Smoked in Last 30 Days: No e-Cigarette/Vaping Use: Never Used Advance Directives: Yes Advance Directives on File: Yes Advance Directives Date on File: 10/24/23 Patient : No service: No Meds Allergies Allergy/AdvReac Type Severity Reaction Status Date / Time No Known Allergies Allergy Verified 12/19/23 09:47 Home Medications ?Medication ?Instructions ?Recorded ?Confirmed ?Last Taken ?Type escitalopram oxalate 20 mg tablet 20 mg PO DAILY 10/17/23 10/18/23 12/17/23 History furosemide 20 mg tablet 20 mg PO DAILY PRN Edema 10/17/23 10/18/23 Unknown History ibuprofen 800 mg tablet 800 mg PO BID PRN Pain 10/17/23 10/18/23 Unknown History meclizine 25 mg tablet 25 mg PO BID PRN Dizziness 10/17/23 10/18/23 Unknown History metformin 500 mg tablet 500 mg PO DAILY 10/17/23 10/18/23 12/17/23 History pantoprazole 40 mg tablet,delayed 40 mg PO BID@0630,1830 10/17/23 10/18/23 12/17/23 History release thiamine HCl (vitamin B1) 100 mg 100 mg PO DAILY 10/17/23 10/18/23 12/17/23 History tablet Physical Exam 2 Vital Signs and Narrative: Vital Signs: Last Vital Signs Temp 98.3 F 12/19/23 12:17 Pulse 70 12/19/23 12:17 Resp 18 12/19/23 12:17 BP 124/71 12/19/23 12:17 Pulse Ox 97 12/19/23 12:17 O2 Del Method Room Air 12/19/23 12:17 BMI result Body Mass Index 45.0 Constitutional: Alert, in no distress, overweight. Mental Status: Oriented to person, place and time. Eyes: Pupils are equal, round and reactive to light. Ear, Nose and Throat: Oropharynx clear, mucous membranes moist. Ears and nose without eformities. Trachea midline. Respiratory: Clear to auscultation. No wheezing, rales or rhonchi. Cardiovascular: S1 S2 regular. No murmurs, rubs or gallops. Gastrointestinal: Abdomen soft, non-tender, non-distended. Normal bowel sounds.? Neurologic: Cranial nerves II-XII grossly intact. No focal neurological deficits. Moves all extremities spontaneously.? Skin: No rashes or lesions.? Musculoskeletal: No cyanosis or clubbing. Psychiatric: Normal mood and affect? Results Labs 12/19/23 10:12 12/19/23 10:12 Labs: Laboratory Results - last 24 hr 12/19/23 12/19/23 10:12 12:28 MCV 92.4 MCH 32.1 MCHC 34.8 RDW 12.0 Plt Count 180 MPV 9.6 Immature Gran % (Auto) 0.0 Neut % (Auto) 42.3 L Lymph % (Auto) 44.3 H Hinds % (Auto) 9.4 Eos % (Auto) 2.8 Baso % (Auto) 1.2 Lymph # (Auto) 2.2 Hinds # (Auto) 0.5 Eos # (Auto) 0.1 Baso # (Auto) 0.1 Abs Immat Gran (auto) 0.00 Absolute Neuts (auto) 2.1 Absolute Nucleated RBC 0.000 Nucleated RBC % (auto) 0.0 Anion Gap 15 Estim Creat Clear Calc 40.3 Estimated GFR 23 Random Glucose 82 Calcium 9.9 Magnesium 1.7 Total Bilirubin 0.7 Direct Bilirubin 0.2 AST 29 ALT 21 Alkaline Phosphatase 63 Troponin I High Sens 7.0 7.8 Total Protein 7.1 Albumin 3.8 TSH 2.30 Assessment and Plan (1) Acute hypotension: Status: Acute (2) JOHN (acute kidney injury): Status: Acute (3) Bradycardia, sinus: Status: Acute Plan 48/F with morbid obesity, dm, hld, depression here with dizziness associated with bradycardia and Hypotensio and also has JOHN Dizziness related to Hypotension -IVF to maintain perfusing BP Hypotension--not due to sepsis, likely from dehydration -Continue IVF, hold Lasix -check random cortisol level JOHN--likely pre-renal state related to renal hypoperfusion from hypotensio -Continue IVF and repeat labs tomorrow, if not improving then nephrology consult Bradycardia--Sinus, not related to med, no heart block.. Monitor, TSH normal, cortizol level as above, Lyme Ab pending, atropine if symtomatic Borderline diabetes--hold metformin, SSI, check A1CV, diabetic diet Mood disorder continue home meds Class 3 obesity--Weight loss advise, encourage exercise and caloric restriction HLD--statin GERD--PPI DVT prophylaxis--Lovenox Full code 2 midnights admit for IVF for JOHN, and symptomatic hypotension and bradycardia Quality Stroke Does the patient have a stroke diagnosis?: No VTE Prior VTE?: No VTE Risk Level:: Medical - moderate - high VTE Device Contraindication: Treatment Not Indicated VTE Drug Contraindication: N/A - Med Ordered
--- NOTE | 2023-12-19 14:06 | PHA.MEDREC ---
Addendum entered by Louis Jenkins RP 12/19/23 16:38: med rec checked by [facility] Original Note: Pharmacy Consult ? Medication Reconciliation Pharmacy has completed the medication reconciliation. Confirmed medications with patient.
[2023-12-19 14:33] LABS: Estimated Average Glucose 97 mg/dL
[2023-12-19] MEDS: Lactated Ringers 1,000 ML 150 ML IVCONT ×2 (14:42→21:28)
[2023-12-19] MEDS: Enoxaparin Sodium 40 MG/0.4 ML SYRINGE SUBCUT (14:42)
--- NOTE | 2023-12-19 14:45 | PC.NURSE ---
resting quietly. mentating well. skin pwd. NAD. denies dizziness and lightheadedness while supine. SB on minitor down to 37 at times but mostly low 40's.
[2023-12-19 14:58] LABS: Cortisol Random 4.1 ug/dL
--- NOTE | 2023-12-19 15:01 | PC.NURSE ---
up to commode iwth assist. was not dizzy.
[2023-12-19 16:01] LABS: Appearance Urine Clear; Color Urine Yellow; Glucose Urine UA Negative (Negative); Leukocyte Esterase Urine Negative (Negative); Nitrite Urine Negative (Negative); PH 5.5 (5.0-9.0); Specific Gravity - Urine <= 1.005 (1.005-1.025); Urine Blood Negative (Negative); Urine Ketones Negative (Negative); Urine Protein Negative (Neg-Trace)
[2023-12-19 19:19] LABS: Glucose, Whole Blood 73 mg/dL (60-115)
--- NOTE | 2023-12-19 19:46 | PC.NURSE ---
Pt ca&ox4, no signs of distress. Pt resting in bed Denies pain at this time Plan of care ongoing.
--- NOTE | 2023-12-19 19:49 | PC.NURSE ---
This RN assumed pt care @ 1920 due to previous RN on the phone. This RN charting against overdue meds from previous shift.
[2023-12-19] MEDS: Omeprazole 20 MG CAPSULE.DR PO (20:16)
--- NOTE | 2023-12-19 20:18 | PC.NURSE ---
Pt medicated per jul. Pt assisted to bedside commode by zechariah and this RN. Plan of care ongoing.
[2023-12-19 21:20] LABS: Glucose, Whole Blood 95 mg/dL (60-115)
[2023-12-19] MEDS: Atorvastatin Calcium 40 MG TABLET PO (21:24)
[2023-12-20] VITALS (7 sets, daily range): BP systolic 90–106; BP diastolic 50–70; PULSE 41–51; RESP 15–20; TEMP 36.1–37.1; O2SAT 93–97
[2023-12-20] MEDS: Lactated Ringers 1,000 ML 150 ML IVCONT (04:05)
[2023-12-20] MEDS: Omeprazole 20 MG CAPSULE.DR PO ×2 (05:10→18:39)
--- NOTE | 2023-12-20 07:00 | CA_ITS ---
Transthoracic Echocardiogram Patient (Last, First, Middle): Sri Clayton A Gender: Female Date of : 1975 Age: 48 Procedure Date: 12/20/2023 Procedure Type: Transthoracic Echocardiogram Location: [facility] [place] Height: 165.1 cm Weight: 122.47 kg BSA: 2.25 m2 Heart Rate: 45 bpm BP: 94 / 50 mmHg [employer] Delivery Driver: LAUREANO Pierre MD: Thomas Arambula MD Registered Art Therapist: El Hanna MD Symptoms: Bradycardia Study Quality: Adequate ECG Rhythm: Bradycardia Conclusions: - Normal study Findings Left Ventricle Normal left ventricular cavity size. There is normal left ventricular wall thickness. The left ventricular systolic function is hyperdynamic. The visually estimated ejection fraction is >70%. Spectral Doppler is indicative of a normal filling pattern. Peak GLS is -19.7%, within normal limits. Right Ventricle Normal right ventricular cavity size and systolic function. Atria The left atrium is likely dilated. There is no evidence of interatrial shunt. The right atrium is normal in size. Aortic Valve Normal aortic valve structure and function. There is no aortic valve stenosis. There is no aortic valve regurgitation. Mitral Valve Normal mitral valve structure and function. There is trace mitral valve regurgitation. There is no mitral valve stenosis. Pulmonic Valve The pulmonic valve is likely normal. There is trace pulmonic valve regurgitation. Tricuspid Valve Normal tricuspid valve structure. There is trace tricuspid valve regurgitation. The right ventricular systolic pressure is normal. The right ventricular systolic pressure is 23 mmHg. Normal right atrial pressure. There is no evidence of pulmonary hypertension. Great Vessels All visible segments of the aorta are normal in size. The pulmonary artery was not well visualized. Venous The inferior vena cava is normal in size and collapses greater than 50% with inspiration. Pericardium/Pleural There is no evidence of pericardial effusion. Measurements 2D Linear Measurements IVSd: 1.15 0.6-0.9/0.6-1.0 cm LVIDd: 5.52 3.9-5.3/4.2-5.9 cm LVIDd Index: 2.45 2.4-3.2/2.2-3.1 cm/m2 LVIDs: 2.49 2.0-3.6 cm LVPWd: 0.93 0.7-1.1 cm LA Diam: 4.00 2.7-3.8/3.0-4.0 cm LAIDs Index: 1.78 1.5-2.3 cm/m2 LV Mass: 282.33 67-162/88-224 g LV Mass Index: 125.48 43-95/49-115 g/m2 LVOT Diam: 2.20 3.0+(-)1.3 cm 2D Systolic Function EF 4C: 70.40 >55% EF 2C: 71.50 >55% EF BiP: 71.60 >55% Mitral Valve MV Pk E: 0.89 MV PK A: 0.48 MV Decel Time: 282.00 E/A: 1.80 E'Lateral: 12.60 E'Medial: 7.83 E/E' Med: 11.30 E/E' Lat: 7.00 PHT: 83.00 MVA PHT: 2.65 Decel Luce: 3.14 Aortic Valve AoV Pk Miguel: 1.14 AoV Mn Miguel: 0.83 AoV VTI: 0.27 AoV Pk Grad: 5.00 Aov Mn Grad: 3.00 OZ Cont.VTI: 3.13 LVOT LVOT Pk Miguel: 0.98 LVOT Mn Miguel: 0.73 LVOT VTI: 0.23 LVOT Pk Grad: 4.00 LVOT Mn Grad: 2.00 LVOT Diam: 2.20 LVOT Area: 3.80 Diastolic Function MV Pk E: 0.89 MV Pk A: 0.48 E/A: 1.80 E'Medial: 7.83 E/E' Med: 11.30 E' Laterial: 12.60 E/E' Lat: 7.00 Right Ventricle TAPSE (mm): 23.30 TVS' Miguel: 12.30 Tricuspid Valve TR Pk Miguel: 1.92 TR Pk Grad: 15.00 RA Press: 8.00 RVSP: 23.00 Great Vessels Aorta Sinus of Valsalva: 3.20 2.0-3.5 cm Ao Asc: 3.50 2.1-3.4 cm Pulmonary Valve PV Pk Miguel: 0.76 Peak PV Grad: 2.00 Updated in Other Vendor System with Status of Final El Hanna MD electronically signed on 12/20/2023 3:40:32 PM with status of Final
[2023-12-20 07:03] LABS: Glucose, Whole Blood 85 mg/dL (60-115)
[2023-12-20 07:24] LABS: Anion Gap 12 (12-20); Blood Urea Nitrogen 22 mg/dL (9-16); Calcium 9.1 mg/dL (8.4-10.2); Carbon Dioxide 28 mmol/L (22-29); Chloride 106 mmol/L (96-108); Creatinine Clr Calc Pharmacy 73.4; Estimated Glomerular Filt Rate 47; Glucose Random 81 mg/dL (60-115); Potassium 3.1 mmol/L (3.3-5.1); Sodium 143 mmol/L (135-145)
--- NOTE | 2023-12-20 08:23 | MHC.CM.PN ---
Patient has lived at the [facility] ([facility]) for approximately one month; returning to this environment is the goal and CM has initiated and will follow for dc planning. PCP is Dr.Sabrina Jha and HCP is /Stacy.
[2023-12-20] MEDS: 0.9 % Sodium Chloride 1,000 ML 999 ML IVCONT ×2 (08:45→09:46)
[2023-12-20] MEDS: Folic Acid 1 MG TABLET PO (08:46)
[2023-12-20] MEDS: Aspirin Enteric Coated 81 MG TABLET.DR PO (08:46)
[2023-12-20] MEDS: Thiamine HCL 100 MG TABLET PO (08:46)
[2023-12-20] MEDS: Escitalopram Oxalate 20 MG TABLET PO (08:46)
[2023-12-20 10:53] LABS: MANUAL DIFF FLAG NO
[2023-12-20 10:53] LABS: Glucose, Whole Blood 93 mg/dL (60-115)
--- NOTE | 2023-12-20 10:57 | HO.PM.IMPN ---
Subjective Subjective Date of Service: 12/20/23 Interval History: follow up on bradycardia and hypotension She remains bradycardic with HR in the 40s, no Heart block Blood pressure also remains low despite IVF Physical Exam Vital Signs: Vital Signs: Last Vital Signs Temp 97.0 F 12/20/23 07:21 Pulse 46 L 12/20/23 07:21 Resp 18 12/20/23 07:21 BP 90/51 L 12/20/23 07:21 Pulse Ox 94 12/20/23 07:21 O2 Del Method Room Air 12/20/23 07:21 BMI result Body Mass Index 45.0 Const: Other: General: AO X 3, no acute distress Resp: CTA bilateral CVS: S1,S2,RRR GI: +BS, NT, no distention Skin: No rash Neuro: motor grossly intact Psych: appropriate affect Objective Data Active Medications Acetaminophen (Acetaminophen 325 Mg Tablet) 650 mg PO Q6H PRN PRN Reason: Pain, Mild (Pain Scale 1-3), fever or headache Aspirin (Aspirin Enteric Coated 81 Mg Tablet.) 81 mg PO DAILY [facility] Last Admin: 12/20/23 08:46 Dose: 81 mg Documented By: KYLIE Atorvastatin Calcium (Atorvastatin Calcium 40 Mg Tablet) 40 mg PO BEDTIME [facility] Last Admin: 12/19/23 21:24 Dose: 40 mg Documented By: SHAD Calcium Carbonate (Calcium Carbonate 750 Mg Tab.Chew) 750 mg PO Q4H PRN PRN Reason: Heartburn Enoxaparin Sodium (Enoxaparin Sodium 40 Mg/0.4 Ml Syringe) 40 mg SUBCUT Q24H [facility] Last Admin: 12/19/23 14:42 Dose: 40 mg Documented By: MANNY Escitalopram Oxalate (Escitalopram Oxalate 20 Mg Tablet) 20 mg PO DAILY [facility] Last Admin: 12/20/23 08:46 Dose: 20 mg Documented By: KYLIE Folic Acid (Folic Acid 1 Mg Tablet) 1 mg PO DAILY [facility] Last Admin: 12/20/23 08:46 Dose: 1 mg Documented By: KYLIE Glucose (Glucose Gel 15 Gm Gel..Gram.) 15 gm PO Q15M PRN; Protocol PRN Reason: per Hypoglycemia Standing Ord. Dextrose (D10) 250 mls @ 750 mls/hr IV Q15M PRN; Protocol PRN Reason: per Hypoglycemia Standing Ord. Sodium Chloride (Ns) 1,000 mls @ 125 mls/hr IVCONT .Q8H [facility] Insulin Human Lispro (Insulin Lispro 100 Unit/Ml 3 Ml Vial) 0 unit SUBCUT QIDACHS [facility]; Protocol Last Admin: 12/20/23 08:34 Dose: Not Given Documented By: KYLIE Non-Admin Reason: No Insulin Coverage Magnesium Hydroxide (Milk Of Magnesia 30 Ml Oral.Susp) 30 ml PO DAILY PRN PRN Reason: Constipation Melatonin (Melatonin 3 Mg Tablet) 6 mg PO BEDTIME PRN PRN Reason: Insomnia Omeprazole (Omeprazole 20 Mg Capsule.Dr) 20 mg PO BID@0630,1830 [facility] Last Admin: 12/20/23 05:10 Dose: 20 mg Documented By: SHAD Ondansetron HCl (Ondansetron Hcl 4 Mg/2 Ml Vial) 4 mg IVPUSH Q8H PRN PRN Reason: Nausea and Vomiting Sodium Chloride (0.9 % Sodium Chloride Flush 3 Ml Syringe) 3 ml IVFLUSH QSHIFT [facility] Last Admin: 12/20/23 08:53 Dose: Not Given Documented By: KYLIE Non-Admin Reason: IV Running Thiamine HCl (Thiamine Hcl 100 Mg Tablet) 100 mg PO DAILY [facility] Last Admin: 12/20/23 08:46 Dose: 100 mg Documented By: KYLIE Labs 12/20/23 06:33 12/20/23 06:33 Labs: Laboratory Results - last 24 hr 12/19/23 12/19/23 12/19/23 10:12 12:28 15:45 Hold Purple Top Anion Gap Estim Creat Clear Calc Estimated GFR POC Glucose Random Glucose Estimat Average Glucose 97 Hemoglobin A1c % 5.0 Calcium Troponin I High Sens 7.0 7.8 TSH 2.30 Random Cortisol 4.1 Urine Color Yellow Urine Appearance Clear Urine pH 5.5 Ur Specific [place] <= 1.005 Urine Protein Negative Urine Glucose (UA) Negative Urine Ketones Negative Urine Blood Negative Urine Nitrite Negative Ur Leukocyte Esterase Negative 12/19/23 12/19/23 12/20/23 19:14 21:14 06:33 Hold Purple Top SEE NOTE Anion Gap 12 Estim Creat Clear Calc 73.4 Estimated GFR 47 POC Glucose 73 95 Random Glucose 81 Estimat Average Glucose Hemoglobin A1c % Calcium 9.1 D Troponin I High Sens TSH Random Cortisol Urine Color Urine Appearance Urine pH Ur Specific [place] Urine Protein Urine Glucose (UA) Urine Ketones Urine Blood Urine Nitrite Ur Leukocyte Esterase 12/20/23 12/20/23 06:57 10:46 Hold Purple Top Anion Gap Estim Creat Clear Calc Estimated GFR POC Glucose 85 93 Random Glucose Estimat Average Glucose Hemoglobin A1c % Calcium Troponin I High Sens TSH Random Cortisol Urine Color Urine Appearance Urine pH Ur Specific [place] Urine Protein Urine Glucose (UA) Urine Ketones Urine Blood Urine Nitrite Ur Leukocyte Esterase Assessment and Plan (1) Acute hypotension: Status: Acute (2) JOHN (acute kidney injury): Status: Acute (3) Bradycardia, sinus: Status: Acute Plan 48/F with morbid obesity, dm, hld, depression here with dizziness associated with bradycardia and Hypotensio and also has JOHN Dizziness related to Hypotension and ? Bradycardia- -IVF to maintain perfusing BP Hypotension--initially attriubted to dehydration, volumed depletion and diuretics, remains hypotensive despite IVF, no sings of sepsis -Continue IVF, hold Lasix -random cortisol with normal, TSH normal, Lyme Abx is pending -continue IVF JOHN--likely pre-renal state related to renal hypoperfusion from hypotension, improving -Continue IVF and repeat labs tomorrow, Hypokalemia and Hypomagenesemia--IV mag sulfate and Oral K, repeat tomorrow Bradycardia--Sinus, not related to med, no heart block.. Monitor, TSH normal, cortizol level as above, Lyme Ab pending, atropine if symtomatic get cardiology consult, echo Borderline diabetes--hold metformin, SSI, check A1C Mood disorder continue home meds Class 3 obesity--Weight loss advise, encourage exercise and caloric restriction HLD--statin GERD--PPI DVT prophylaxis--Lovenox Full code need for inpt: Symptomatic bradycardia and Hypotension Total time managing care of this patient today: 35 minutes. Quality Stroke Does the patient have a stroke diagnosis?: No VTE Prior VTE?: No VTE Risk Level:: Medical - moderate - high VTE Device Contraindication: Treatment Not Indicated VTE Drug Contraindication: N/A - Med Ordered
[2023-12-20 11:08] LABS: Basophils Percent Auto 0.9 % (0-2); Eosinophils Absolute Auto 0.1 X10*3/uL (0.0-0.4); Eosinophils Percent Auto 2.4 % (0-4); Hematocrit 38.7 % (37.0-47.0); Hemoglobin 13.4 g/dl (12.0-16.0); Imm Gran Abs Auto 0.01 X10*3/uL (0.00-0.03); Imm Gran Pct Auto 0.2 % (0.0-0.4); Lymphocytes Absolute Auto 1.9 X10*3/uL (1.2-4.9); Lymphocytes Percent Auto 40.3 % (20-40); Mean Corpuscular HGB Conc 34.6 g/dl (31.0-35.0); Mean Corpuscular Hemoglobin 32.1 pg (27.0-33.0); Mean Corpuscular Volume 92.8 fL (80.0-98.0); Mean Platelet Volume 10.8 fL (9.4-12.3); Monocytes Absolute Auto 0.4 X10*3/uL (0.1-1.2); Monocytes Percent Auto 8.5 % (2-11); Neutrophils Absolute Auto 2.2 x10*3/uL (2.0-8.3); Neutrophils Percent Auto 47.7 % (45-73); Platelet Count 154 X10*3/uL (160-400); Red Blood Count 4.17 X10*6/uL (4.20-5.50); Red Cell Distribution Width 12.2 % (11.0-16.0); White Blood Count 4.6 X10*3/uL (4.8-10.8)
[2023-12-20 11:33] LABS: Magnesium 1.4 mg/dL (1.6-2.6)
[2023-12-20] MEDS: Magnesium Sulfate/H2O 2 GM/50 ML PIGGYBACK IV (11:53)
[2023-12-20] MEDS: Potassium Chloride ER 20 MEQ TAB.ER.PRT 40 MEQ PO (11:54)
[2023-12-20] MEDS: 0.9 % Sodium Chloride 1,000 ML 125 ML IVCONT ×2 (11:54→22:56)
[2023-12-20] MEDS: Enoxaparin Sodium 40 MG/0.4 ML SYRINGE SUBCUT (15:47)
[2023-12-20 16:10] LABS: Glucose, Whole Blood 101 mg/dL (60-115)
[2023-12-20 17:23] LABS: Lyme Abs Screen <0.90 index
[2023-12-20] MEDS: 0.9 % Sodium Chloride Flush 3 ML SYRINGE IVFLUSH (18:39)
[2023-12-20 20:09] LABS: Glucose, Whole Blood 87 mg/dL (60-115)
[2023-12-20] MEDS: Atorvastatin Calcium 40 MG TABLET PO (20:28)
[2023-12-21] VITALS: BP 98/58; PULSE 50; RESP 20; TEMP 36.1; O2SAT 94
[2023-12-21] MEDS: Melatonin 3 MG TABLET 6 MG PO (02:03)
[2023-12-21 04:00] VITALS: BP 103/58; PULSE 48; RESP 20; TEMP 36.1; O2SAT 94
[2023-12-21] MEDS: Omeprazole 20 MG CAPSULE.DR PO ×2 (05:51→16:58)
[2023-12-21 06:40] LABS: Anion Gap 12 (12-20); Blood Urea Nitrogen 16 mg/dL (9-16); Calcium 8.1 mg/dL (8.4-10.2); Carbon Dioxide 25 mmol/L (22-29); Chloride 113 mmol/L (96-108); Creatinine Clr Calc Pharmacy 102.7; Estimated Glomerular Filt Rate > 60; Glucose Random 83 mg/dL (60-115); Potassium 3.5 mmol/L (3.3-5.1); Sodium 146 mmol/L (135-145)
--- NOTE | 2023-12-21 06:50 | HO.PM.IMPN ---
Subjective Subjective Date of Service: 12/21/23 Interval History: follow up on bradycardia and hypotension She remains bradycardic with HR in the 40s Blood pressure still on low sdie, renal function has corrected Physical Exam Vital Signs: Vital Signs: Last Vital Signs Temp 96.9 F 12/21/23 04:00 Pulse 48 L 12/21/23 04:00 Resp 20 12/21/23 04:00 BP 103/58 L 12/21/23 04:00 Pulse Ox 94 12/21/23 04:00 O2 Del Method Room Air 12/21/23 04:00 BMI result Body Mass Index 45.0 Const: Other: General: AO X 3, no acute distress Resp: CTA bilateral CVS: S1,S2,RRR GI: +BS, NT, no distention Skin: No rash Neuro: motor grossly intact Psych: appropriate affect Objective Data Active Medications Acetaminophen (Acetaminophen 325 Mg Tablet) 650 mg PO Q6H PRN PRN Reason: Pain, Mild (Pain Scale 1-3), fever or headache Aspirin (Aspirin Enteric Coated 81 Mg Tablet.) 81 mg PO DAILY [facility] Last Admin: 12/20/23 08:46 Dose: 81 mg Documented By: KYLIE Atorvastatin Calcium (Atorvastatin Calcium 40 Mg Tablet) 40 mg PO BEDTIME [facility] Last Admin: 12/20/23 20:28 Dose: 40 mg Documented By: MIRI Calcium Carbonate (Calcium Carbonate 750 Mg Tab.Chew) 750 mg PO Q4H PRN PRN Reason: Heartburn Enoxaparin Sodium (Enoxaparin Sodium 40 Mg/0.4 Ml Syringe) 40 mg SUBCUT Q24H [facility] Last Admin: 12/20/23 15:47 Dose: 40 mg Documented By: CAROLE Escitalopram Oxalate (Escitalopram Oxalate 20 Mg Tablet) 20 mg PO DAILY [facility] Last Admin: 12/20/23 08:46 Dose: 20 mg Documented By: KYLIE Folic Acid (Folic Acid 1 Mg Tablet) 1 mg PO DAILY [facility] Last Admin: 12/20/23 08:46 Dose: 1 mg Documented By: KYLIE Glucose (Glucose Gel 15 Gm Gel..Gram.) 15 gm PO Q15M PRN; Protocol PRN Reason: per Hypoglycemia Standing Ord. Dextrose (D10) 250 mls @ 750 mls/hr IV Q15M PRN; Protocol PRN Reason: per Hypoglycemia Standing Ord. Insulin Human Lispro (Insulin Lispro 100 Unit/Ml 3 Ml Vial) 0 unit SUBCUT QIDACHS [facility]; Protocol Last Admin: 12/20/23 22:03 Dose: Not Given Documented By: MIRI Non-Admin Reason: No Insulin Coverage Comments: bs 87 Magnesium Hydroxide (Milk Of Magnesia 30 Ml Oral.Susp) 30 ml PO DAILY PRN PRN Reason: Constipation Melatonin (Melatonin 3 Mg Tablet) 6 mg PO BEDTIME PRN PRN Reason: Insomnia Last Admin: 12/21/23 02:03 Dose: 6 mg Documented By: MIRI Omeprazole (Omeprazole 20 Mg Capsule.Dr) 20 mg PO BID@4530,6860 [facility] Last Admin: 12/21/23 05:51 Dose: 20 mg Documented By: MIRI Ondansetron HCl (Ondansetron Hcl 4 Mg/2 Ml Vial) 4 mg IVPUSH Q8H PRN PRN Reason: Nausea and Vomiting Sodium Chloride (0.9 % Sodium Chloride Flush 3 Ml Syringe) 3 ml IVFLUSH QSHIFT [facility] Last Admin: 12/21/23 00:33 Dose: Not Given Documented By: MIRI Non-Admin Reason: IV Running Thiamine HCl (Thiamine Hcl 100 Mg Tablet) 100 mg PO DAILY [facility] Last Admin: 12/20/23 08:46 Dose: 100 mg Documented By: KYLIE Labs 12/20/23 06:33 12/21/23 05:41 Labs: Laboratory Results - last 24 hr 12/19/23 12/20/23 12/20/23 10:12 06:33 06:57 MCV 92.8 MCH 32.1 MCHC 34.6 RDW 12.2 Plt Count 154 L MPV 10.8 Immature Gran % (Auto) 0.2 Neut % (Auto) 47.7 Lymph % (Auto) 40.3 H [place] % (Auto) 8.5 Eos % (Auto) 2.4 Baso % (Auto) 0.9 Lymph # (Auto) 1.9 [place] # (Auto) 0.4 Eos # (Auto) 0.1 Baso # (Auto) 0.0 Abs Immat Gran (auto) 0.01 Absolute Neuts (auto) 2.2 Absolute Nucleated RBC 0.000 Nucleated RBC % (auto) 0.0 Hold Purple Top SEE NOTE Anion Gap 12 Estim Creat Clear Calc 73.4 Estimated GFR 47 POC Glucose 85 Random Glucose 81 Calcium 9.1 D Magnesium 1.4 L* Lyme Screen IgG & IgM <0.90 12/20/23 12/20/23 12/20/23 10:46 16:03 20:04 MCV MCH MCHC RDW Plt Count MPV Immature Gran % (Auto) Neut % (Auto) Lymph % (Auto) [place] % (Auto) Eos % (Auto) Baso % (Auto) Lymph # (Auto) [place] # (Auto) Eos # (Auto) Baso # (Auto) Abs Immat Gran (auto) Absolute Neuts (auto) Absolute Nucleated RBC Nucleated RBC % (auto) Hold Purple Top Anion Gap Estim Creat Clear Calc Estimated GFR POC Glucose 93 101 87 Random Glucose Calcium Magnesium Lyme Screen IgG & IgM 12/21/23 05:41 MCV MCH MCHC RDW Plt Count MPV Immature Gran % (Auto) Neut % (Auto) Lymph % (Auto) [place] % (Auto) Eos % (Auto) Baso % (Auto) Lymph # (Auto) [place] # (Auto) Eos # (Auto) Baso # (Auto) Abs Immat Gran (auto) Absolute Neuts (auto) Absolute Nucleated RBC Nucleated RBC % (auto) Hold Purple Top SEE NOTE Anion Gap 12 Estim Creat Clear Calc 102.7 Estimated GFR > 60 POC Glucose Random Glucose 83 Calcium 8.1 L D Magnesium Lyme Screen IgG & IgM Assessment and Plan (1) Acute hypotension: Status: Acute (2) JOHN (acute kidney injury): Status: Acute (3) Bradycardia, sinus: Status: Acute Plan 48/F with morbid obesity, dm, hld, depression here with dizziness associated with bradycardia and Hypotensio and also has JOHN Dizziness related to Hypotension and ? Bradycardia- resolved -IVF to maintain perfusing BP Hypotension--initially attriubted to dehydration, volumed depletion and diuretics, negative sepsis work up, has history similar episodes in past -BP is still low continue IVF -out of bed ambulate JOHN--likely pre-renal state related to renal hypoperfusion from hypotension, resolved. Stop IVF Hypokalemia and Hypomagenesemia--corrected and resolved Bradycardia--Sinus, not related to med, no heart block.. Monitor, TSH normal, cortizol level as above, Lyme Ab negative, atropine if symtomatic Stopping Lexapro, as case report point to possible bradycardia Borderline diabetes--hold metformin, SSI, check A1C 5 Mood disorder continue home meds Class 3 obesity--Weight loss advise, encourage exercise and caloric restriction HLD--statin GERD--PPI DVT prophylaxis--Lovenox Full code need for inpt: Symptomatic bradycardia and Hypotension Total time managing care of this patient today: 35 minutes. Quality Stroke Does the patient have a stroke diagnosis?: No VTE Prior VTE?: No VTE Risk Level:: Medical - moderate - high VTE Device Contraindication: Treatment Not Indicated VTE Drug Contraindication: N/A - Med Ordered
[2023-12-21 07:05] LABS: Glucose, Whole Blood 74 mg/dL (60-115)
[2023-12-21 07:15] LABS: Magnesium 1.5 mg/dL (1.6-2.6)
[2023-12-21 07:35] VITALS: BP 101/61; PULSE 46; RESP 18; TEMP 36.1; O2SAT 93
[2023-12-21] MEDS: Escitalopram Oxalate 20 MG TABLET PO (08:14)
[2023-12-21] MEDS: Thiamine HCL 100 MG TABLET PO (08:14)
[2023-12-21] MEDS: Folic Acid 1 MG TABLET PO (08:15)
[2023-12-21] MEDS: Aspirin Enteric Coated 81 MG TABLET.DR PO (08:15)
[2023-12-21] MEDS: Milk of Magnesia 30 ML ORAL.SUSP PO (08:16)
--- NOTE | 2023-12-21 10:28 | P.CONCA_ITS ---
History of Present Illness History of Present Illness Date of Service: 12/21/23 Requesting physician: [facility] Consult reason: hypotension and other (Near-syncope, bradycardia) Chief complaint: Hypotension, JOHN, bradycardia Narrative: I was consulted to see Sri in cardiology consultation today for sinus bradycardia. She is a 48-year-old female with currently admitted to detox rehab center for mental health as well as alcoholism. She has been on Lasix for leg edema and has not been drinking adequate amount of hydration there as she says that it is cold in the center and she does not feel the need to hydrate herself. She came to the hospital because she had lightheadedness and almost passed out. She had no rapid heart rate, chest pain, shortness of breath. When she came to the emergency room she was noted to have systolic blood pressure in the 70s. She was also noted to have acute kidney injury with creatinine up to in the 2 range. She was then aggressively hydrated and her kidney functions have normalized. Although she has remained to have sinus bradycardia. There been no significant pauses. She said recently she was sent to sleep Center in [place] and was advised a sleep study but this has not been done as yet. She has never had any syncopal episodes in the past. She denies any other cardiac issues. She is not on any rate lowering medications. Review of Systems 2 Constitutional: Constitutional: Reports lethargy and Reports snoring Eyes: Eyes: Reports no additional eye complaints Cardiovascular: Cardiovascular: Denies chest pain, Reports leg edema, Reports lightheadedness, Denies palpitations, Denies dyspnea and Reports slow heart rate Respiratory: Respiratory: Denies dyspnea and Reports snoring Gastrointestinal: Gastrointestinal: Reports no additional gastrointestinal complaints Musculoskeletal: Musculoskeletal: Reports no additional musculoskeletal complaints Integumentary/Breasts: Skin/Breast: Reports system reviewed and no additional complaints, except as docu Neurologic: Reports system reviewed and no additional complaints, except as documented Psychiatric: Psychiatric: Reports no additional psychiatric complaints Endocrine: Endocrine: Denies palpitations PMFSH Past Medical History Medical History Hyperlipidemia Gait disturbance Alcoholic cerebellar degeneration Chronic cerebrovascular accident (CVA) Social History Social History Household Members: Other Household Members Other:: senior care Housing: Assisted Living Facility Unable to assess alcohol history related to: Unable to respond Alcohol intake: former Patient Tobacco Use Status: Former Tobacco user Tobacco use type: Cigarette Smoked in Last 30 Days: No e-Cigarette/Vaping Use: Never Used Use of substances other than those prescribed or required for medical reasons: No Currently Displaying Signs/Symptoms of Drug Intoxication Withdrawal: No Have you been hit, kicked, punched, or otherwise hurt by someone within the past year? If so, by whom?: No Is there a partner from a previous relationship who is making you feel unsafe now?: No Are you made to feel afraid or neglected: No Advance Directives: Yes Advance Directives on File: Yes Advance Directives Date on File: 10/24/23 Do you have a plan to hurt others: No Plan Nutrition Risks: No Nutritional Risk Patient : No service: No Meds Allergies Allergy/AdvReac Type Severity Reaction Status Date / Time No Known Allergies Allergy Verified 12/19/23 09:47 Active Medications: Current Medications Acetaminophen (Acetaminophen 325 Mg Tablet) 650 mg PO Q6H PRN PRN Reason: Pain, Mild (Pain Scale 1-3), fever or headache Aspirin (Aspirin Enteric Coated 81 Mg Tablet.) 81 mg PO DAILY COUNTS INCLUDE 234 BEDS AT THE [facility] Last Admin: 12/21/23 08:15 Dose: 81 mg Atorvastatin Calcium (Atorvastatin Calcium 40 Mg Tablet) 40 mg PO BEDTIME COUNTS INCLUDE 234 BEDS AT THE [facility] Last Admin: 12/20/23 20:28 Dose: 40 mg Calcium Carbonate (Calcium Carbonate 750 Mg Tab.Chew) 750 mg PO Q4H PRN PRN Reason: Heartburn Enoxaparin Sodium (Enoxaparin Sodium 40 Mg/0.4 Ml Syringe) 40 mg SUBCUT Q24H COUNTS INCLUDE 234 BEDS AT THE [facility] Last Admin: 12/20/23 15:47 Dose: 40 mg Escitalopram Oxalate (Escitalopram Oxalate 20 Mg Tablet) 20 mg PO DAILY COUNTS INCLUDE 234 BEDS AT THE [facility] Last Admin: 12/21/23 08:14 Dose: 20 mg Folic Acid (Folic Acid 1 Mg Tablet) 1 mg PO DAILY COUNTS INCLUDE 234 BEDS AT THE [facility] Last Admin: 12/21/23 08:15 Dose: 1 mg Glucose (Glucose Gel 15 Gm Gel..Gram.) 15 gm PO Q15M PRN; Protocol PRN Reason: per Hypoglycemia Standing Ord. Dextrose (D10) 250 mls @ 750 mls/hr IV Q15M PRN; Protocol PRN Reason: per Hypoglycemia Standing Ord. Insulin Human Lispro (Insulin Lispro 100 Unit/Ml 3 Ml Vial) 0 unit SUBCUT QIDACHS COUNTS INCLUDE 234 BEDS AT THE [facility]; Protocol Last Admin: 12/21/23 08:04 Dose: Not Given Magnesium Hydroxide (Milk Of Magnesia 30 Ml Oral.Susp) 30 ml PO DAILY PRN PRN Reason: Constipation Last Admin: 12/21/23 08:16 Dose: 30 ml Melatonin (Melatonin 3 Mg Tablet) 6 mg PO BEDTIME PRN PRN Reason: Insomnia Last Admin: 12/21/23 02:03 Dose: 6 mg Omeprazole (Omeprazole 20 Mg Capsule.Dr) 20 mg PO BID@0630,1830 COUNTS INCLUDE 234 BEDS AT THE [facility] Last Admin: 12/21/23 05:51 Dose: 20 mg Ondansetron HCl (Ondansetron Hcl 4 Mg/2 Ml Vial) 4 mg IVPUSH Q8H PRN PRN Reason: Nausea and Vomiting Sodium Chloride (0.9 % Sodium Chloride Flush 3 Ml Syringe) 3 ml IVFLUSH QSHIFT COUNTS INCLUDE 234 BEDS AT THE [facility] Last Admin: 12/21/23 08:16 Dose: Not Given Thiamine HCl (Thiamine Hcl 100 Mg Tablet) 100 mg PO DAILY COUNTS INCLUDE 234 BEDS AT THE [facility] Last Admin: 12/21/23 08:14 Dose: 100 mg Home Medications ?Medication ?Instructions ?Recorded ?Confirmed ?Last Taken ?Type escitalopram oxalate 20 mg tablet 20 mg PO DAILY 10/17/23 12/19/23 12/17/23 History furosemide 20 mg tablet 20 mg PO DAILY PRN Edema 10/17/23 12/19/23 Unknown History ibuprofen 800 mg tablet 800 mg PO BID PRN Pain 10/17/23 12/19/23 Unknown History meclizine 25 mg tablet 25 mg PO BID PRN Dizziness 10/17/23 12/19/23 Unknown History metformin 500 mg tablet 500 mg PO DAILY 10/17/23 12/19/23 12/17/23 History pantoprazole 40 mg tablet,delayed 40 mg PO BID@0630,1830 10/17/23 12/19/23 12/17/23 History release thiamine HCl (vitamin B1) 100 mg 100 mg PO DAILY 10/17/23 12/19/23 12/17/23 History tablet Physical Exam 2 Vital Signs: Vital Signs: Last Vital Signs Temp 97.0 F 12/21/23 07:35 Pulse 46 L 12/21/23 07:35 Resp 18 12/21/23 07:35 BP 101/61 12/21/23 07:35 Pulse Ox 93 12/21/23 07:35 O2 Del Method Room Air 12/21/23 07:35 BMI result Body Mass Index 45.0 Const: General: cooperative, comfortable, no acute distress, alert and awake Nutritional Appearance: obese morbidly obese Orientation/consciousness: p atient oriented x3 Limitations: no limitations HEENT: Head: Yes normocephalic and Yes atraumatic Neck: Neck: Yes trachea midline, Yes supple and Yes no JVD Resp: Effort & Inspection: normal respiratory effort Auscultation: clear to auscultation bilaterally Cardio: Jugular venous distension: no JVD Rate: bradycardic Rhythm: r egular rhythm Heart sounds: S1 normal heart sound present, S2 normal heart sound present, no click, no gallops and no murmurs GI: Auscultation: normal bowel sounds Skin: General skin exam: no rashes or lesions noted Neuro: General: patient oriented x3 and no focal motor deficits Extrem: General: Yes no clubbing, cyanosis or edema Objective Labs and Meds 12/20/23 06:33 12/21/23 05:41 Lab results: Laboratory Results - last 24 hr 12/19/23 12/20/23 12/20/23 10:12 06:33 10:46 WBC 4.6 L RBC 4.17 L Hgb 13.4 Hct 38.7 MCV 92.8 MCH 32.1 MCHC 34.6 RDW 12.2 Plt Count 154 L MPV 10.8 Immature Gran % (Auto) 0.2 Neut % (Auto) 47.7 Lymph % (Auto) 40.3 H Bleckley % (Auto) 8.5 Eos % (Auto) 2.4 Baso % (Auto) 0.9 Lymph # (Auto) 1.9 Bleck[place] # (Auto) 0.4 Eos # (Auto) 0.1 Baso # (Auto) 0.0 Abs Immat Gran (auto) 0.01 Absolute Neuts (auto) 2.2 Absolute Nucleated RBC 0.000 Nucleated RBC % (auto) 0.0 Hold Purple Top Sodium Potassium Chloride Carbon Dioxide Anion Gap BUN Creatinine Estim Creat Clear Calc Estimated GFR POC Glucose 93 Random Glucose Calcium Magnesium 1.4 L* Lyme Screen IgG & IgM <0.90 Lyme Progressive Test TNP 12/20/23 12/20/23 12/21/23 16:03 20:04 05:41 WBC RBC Hgb Hct MCV MCH MCHC RDW Plt Count MPV Immature Gran % (Auto) Neut % (Auto) Lymph % (Auto) Bleck[place] % (Auto) Eos % (Auto) Baso % (Auto) Lymph # (Auto) Bleck[place] # (Auto) Eos # (Auto) Baso # (Auto) Abs Immat Gran (auto) Absolute Neuts (auto) Absolute Nucleated RBC Nucleated RBC % (auto) Hold Purple Top SEE NOTE Sodium 146 H Potassium 3.5 Chloride 113 H Carbon Dioxide 25 Anion Gap 12 BUN 16 Creatinine 0.88 Estim Creat Clear Calc 102.7 Estimated GFR > 60 POC Glucose 101 87 Random Glucose 83 Calcium 8.1 L D Magnesium 1.5 L Lyme Screen IgG & IgM Lyme Progressive Test 12/21/23 06:55 WBC RBC Hgb Hct MCV MCH MCHC RDW Plt Count MPV Immature Gran % (Auto) Neut % (Auto) Lymph % (Auto) Bleck[place] % (Auto) Eos % (Auto) Baso % (Auto) Lymph # (Auto) Bleck[place] # (Auto) Eos # (Auto) Baso # (Auto) Abs Immat Gran (auto) Absolute Neuts (auto) Absolute Nucleated RBC Nucleated RBC % (auto) Hold Purple Top Sodium Potassium Chloride Carbon Dioxide Anion Gap BUN Creatinine Estim Creat Clear Calc Estimated GFR POC Glucose 74 Random Glucose Calcium Magnesium Lyme Screen IgG & IgM Lyme Progressive Test Assessment and Plan (1) Acute hypotension: Status: Acute Patient admitted with acute hypotension most likely due to severe dehydration with the associated acute kidney injury. This has resolved after IV fluids. Kidney functions have improved. Blood pressure is stabilized. Avoid Lasix use in the future. Advise adequate oral hydration for her. Out of bed to chair. Consider compression stocking for leg edema. (2) Bradycardia, sinus: Status: Acute Sinus bradycardia which is persistent without any obvious rate lowering medications. The only explanation currently appears to be related to escitalopram therapy which has rarely been reported to cause sinus bradycardia. Would discontinue this for now and eventually consider lowering the dose as outpatient. I do not think patient requires pacing therapy at this point time. Would suggest outpatient Holter monitor will schedule for the same. Also suggest outpatient sleep study to evaluate for significant sleep apnea. Avoidance of rate lowering medication in the future was discussed. Continue full disclosure cardiac monitoring for 1 more day. Replace magnesium aggressively and can use IV magnesium replacement therapy today. Will sign of the case and follow-up as outpatient. Procedures Date of Service Date of Service: 12/21/23
--- NOTE | 2023-12-21 10:44 | MHC.CM.PN ---
Per ROUNDS discussion, Patient is Bradycardic and not yet medically cleared for dc. Returning to the [facility] is the goal and CM will continue to follow.
[2023-12-21 10:56] LABS: Glucose, Whole Blood 100 mg/dL (60-115)
[2023-12-21 11:16] VITALS: BP 88/53; RESP 18; TEMP 36.4; O2SAT 96
[2023-12-21] MEDS: Lactated Ringers 1,000 ML 200 ML IVCONT ×3 (12:48→21:21)
[2023-12-21] MEDS: Magnesium Sulfate/H2O 2 GM/50 ML PIGGYBACK IV (12:54)
[2023-12-21] MEDS: Enoxaparin Sodium 40 MG/0.4 ML SYRINGE SUBCUT (14:53)
[2023-12-21 15:40] VITALS: BP 98/54; PULSE 48; RESP 15; TEMP 36.1; O2SAT 94
[2023-12-21 15:55] LABS: Glucose, Whole Blood 100 mg/dL (60-115)
[2023-12-21 19:39] VITALS: BP 97/53; PULSE 47; RESP 17; TEMP 36.6; O2SAT 96
[2023-12-21 20:32] LABS: Glucose, Whole Blood 99 mg/dL (60-115)
[2023-12-21] MEDS: Atorvastatin Calcium 40 MG TABLET PO (21:19)
[2023-12-21] MEDS: 0.9 % Sodium Chloride Flush 3 ML SYRINGE IVFLUSH (21:19)
[2023-12-22] VITALS (9 sets, daily range): BP systolic 92–128; BP diastolic 52–69; PULSE 45–58; RESP 14–20; TEMP 36.1–36.7; O2SAT 94–96
[2023-12-22] MEDS: Melatonin 3 MG TABLET 6 MG PO (02:02)
[2023-12-22] MEDS: Lactated Ringers 1,000 ML 200 ML IVCONT ×3 (04:19→14:47)
[2023-12-22] MEDS: Omeprazole 20 MG CAPSULE.DR PO ×2 (05:43→17:11)
[2023-12-22 06:25] LABS: Anion Gap 10 (12-20); Blood Urea Nitrogen 11 mg/dL (9-16); Calcium 8.6 mg/dL (8.4-10.2); Carbon Dioxide 26 mmol/L (22-29); Chloride 112 mmol/L (96-108); Creatinine Clr Calc Pharmacy 108.9; Estimated Glomerular Filt Rate > 60; Glucose Random 86 mg/dL (60-115); Potassium 3.5 mmol/L (3.3-5.1); Sodium 144 mmol/L (135-145)
[2023-12-22 07:57] LABS: Glucose, Whole Blood 90 mg/dL (60-115)
[2023-12-22 08:44] LABS: Magnesium 1.6 mg/dL (1.6-2.6)
[2023-12-22] MEDS: Thiamine HCL 100 MG TABLET PO (09:06)
[2023-12-22] MEDS: Aspirin Enteric Coated 81 MG TABLET.DR PO (09:06)
[2023-12-22] MEDS: Folic Acid 1 MG TABLET PO (09:06)
[2023-12-22] MEDS: Midodrine HCl 2.5 MG TABLET PO ×3 (09:20→20:11)
--- NOTE | 2023-12-22 10:24 | PM.PNCARD ---
Subjective Subjective Date of Service: 12/22/23 Principal diagnosis: Low blood pressure, sinus bradycardia. Interval history: Patient despite significant fluid given intravenously continues to low blood pressure today was symptomatic after standing for few minutes. Blood pressure in the 90s. Heart rate remains in the mid 40s, when I saw heart rate was in the low 50s. Patient did receive her Lexapro dose yesterday. Denies any chest pain. No shortness of breath Review of Systems Constitutional: Reports no additional constitutional complaints Cardiovascular: Denies chest pain, Reports lightheadedness, Denies Loss of Consciousness, Denies dyspnea and Reports slow heart rate Respiratory: Reports no additional respiratory complaints and Denies dyspnea Reports system reviewed and no additional complaints, except as documented Physical Exam Vital Signs: Last Vital Signs Temp 97.7 F 12/22/23 07:50 Pulse 57 12/22/23 09:24 Resp 20 12/22/23 07:50 BP 103/65 12/22/23 09:24 Pulse Ox 95 12/22/23 07:50 O2 Del Method Room Air 12/22/23 07:50 BMI result Body Mass Index 45.0 Const General: cooperative, comfortable, no acute distress, alert and awake Nutritional Appearance: obese morbidly obese Orientation/consciousness: patient oriented x3 Limitations: no limitations HEENT Head: Yes normocephalic and Yes atraumatic Neck Neck: Yes trachea midline, Yes supple and Yes no JVD Resp Effort & Inspection: normal respiratory effort Auscultation: clear to auscultation bilaterally Cardio Jugular venous distension: no JVD Rate: bradycardic Rhythm: regular rhythm Heart sounds: S1 normal heart sound present, S2 normal heart sound present, no click, no gallops and no murmurs GI Auscultation: normal bowel sounds Skin General skin exam: no rashes or lesions noted Neuro General: patient oriented x3 and no focal motor deficits Extrem General: Yes no clubbing, cyanosis or edema Objective Labs and Meds 12/20/23 06:33 12/22/23 05:43 Lab results: Laboratory Results - last 24 hr 12/21/23 12/21/23 12/21/23 10:46 15:47 20:26 Sodium Potassium Chloride Carbon Dioxide Anion Gap BUN Creatinine Estim Creat Clear Calc Estimated GFR POC Glucose 100 100 99 Random Glucose Calcium Magnesium 12/22/23 12/22/23 05:43 07:50 Sodium 144 Potassium 3.5 Chloride 112 H Carbon Dioxide 26 Anion Gap 10 L BUN 11 Creatinine 0.83 Estim Creat Clear Calc 108.9 Estimated GFR > 60 POC Glucose 90 Random Glucose 86 Calcium 8.6 D Magnesium 1.6 Progress Note: A&P Assessment and plan (1) Acute hypotension: Status: Acute Assessment and Plan: Hypotension still persistent with some orthostatic symptoms. Could be related to autonomic dysfunction. Long standing use of alcohol and neuropathy as well as use of escitalopram. For now continue with IV fluids but reduce the infusion rate. Would add midodrine 2.5 mg t.i.d. to her regimen. Continue monitor clinically. (2) Bradycardia, sinus: Status: Acute Assessment and Plan: Persistent sinus bradycardia, but still receive her escitalopram dose yesterday. Will continue monitor for 24-48 hours off escitalopram. I still do not think she requires pacemaker therapy at this point time. Will continue monitor full disclosure cardiac telemetry. Will follow up with you Time Spent With Patient Time: Total time managing care of this patient today ____ minutes. Progress Note: Quality Stroke Does the patient have a stroke diagnosis?: No Procedures Date of Service Date of Service: 12/22/23
[2023-12-22 11:03] LABS: Glucose, Whole Blood 104 mg/dL (60-115)
--- NOTE | 2023-12-22 12:47 | P.PNIM_ITS ---
Subjective Subjective Date of Service: 12/22/23 Interval History: Seen and examined this morning Follow-up for hypotension, bradycardia Heart rate and blood pressure remained low Patient asymptomatic at rest but with some dizziness after standing for several minutes Review of Systems Review of Systems: Yes all other systems are reviewed and are negative Constitutional Constitutional: Denies chills and Denies fever(s) Cardiovascular Cardiovascular: Denies chest pain, Denies palpitations and Denies dyspnea Respiratory Respiratory: Denies cough and Denies dyspnea Gastrointestinal Gastrointestinal: Denies abdominal pain, Denies nausea and Denies vomiting Endocrine Endocrine: Denies palpitations Physical Exam 2 Vital Signs: Vital Signs: Last Vital Signs Temp 97.5 F 12/22/23 11:02 Pulse 47 L 12/22/23 11:02 Resp 20 12/22/23 11:02 BP 95/54 L 12/22/23 11:02 Pulse Ox 95 12/22/23 11:02 O2 Del Method Room Air 12/22/23 11:02 BMI result Body Mass Index 45.0 Const: Nutritional Appearance: well nourished Orientation/consciousness: p atient oriented x3 HEENT: Head: Yes normocephalic and Yes atraumatic Eyes: Sclerae: sclerae normal Resp: Effort & Inspection: normal respiratory effort and no respiratory distress Auscultation: clear to auscultation bilaterally Cardio: Rate: bradycardic GI: Palpation (GI): Soft to palpation and nontender Skin: General skin exam: no rashes or lesions noted Neuro: General: patient oriented x3 Cranial nerves: Yes CN's II-XII intact bilaterally and Yes Bilaterally intact EOM present Extrem: General: Yes no pedal edema Objective Data Active Medications Acetaminophen (Acetaminophen 325 Mg Tablet) 650 mg PO Q6H PRN PRN Reason: Pain, Mild (Pain Scale 1-3), fever or headache Aspirin (Aspirin Enteric Coated 81 Mg Tablet.) 81 mg PO DAILY [facility] Last Admin: 12/22/23 09:06 Dose: 81 mg Documented By: SHANT Atorvastatin Calcium (Atorvastatin Calcium 40 Mg Tablet) 40 mg PO BEDTIME [facility] Last Admin: 12/21/23 21:19 Dose: 40 mg Documented By: MIRI Calcium Carbonate (Calcium Carbonate 750 Mg Tab.Chew) 750 mg PO Q4H PRN PRN Reason: Heartburn Enoxaparin Sodium (Enoxaparin Sodium 40 Mg/0.4 Ml Syringe) 40 mg SUBCUT Q24H [facility] Last Admin: 12/21/23 14:53 Dose: 40 mg Documented By: SHANT Folic Acid (Folic Acid 1 Mg Tablet) 1 mg PO DAILY [facility] Last Admin: 12/22/23 09:06 Dose: 1 mg Documented By: SHANT Glucose (Glucose Gel 15 Gm Gel..Gram.) 15 gm PO Q15M PRN; Protocol PRN Reason: per Hypoglycemia Standing Ord. Dextrose (D10) 250 mls @ 750 mls/hr IV Q15M PRN; Protocol PRN Reason: per Hypoglycemia Standing Ord. Lactated Ringer's (Lr) 1,000 mls @ 100 mls/hr IVCONT .Q10H [facility] Last Admin: 12/22/23 09:06 Dose: 200 mls/hr Documented By: SHANT Insulin Human Lispro (Insulin Lispro 100 Unit/Ml 3 Ml Vial) 0 unit SUBCUT QIDACHS [facility]; Protocol Last Admin: 12/22/23 12:39 Dose: Not Given Documented By: SHANT Non-Admin Reason: No Insulin Coverage Magnesium Hydroxide (Milk Of Magnesia 30 Ml Oral.Susp) 30 ml PO DAILY PRN PRN Reason: Constipation Last Admin: 12/21/23 08:16 Dose: 30 ml Documented By: SHANT Melatonin (Melatonin 3 Mg Tablet) 6 mg PO BEDTIME PRN PRN Reason: Insomnia Last Admin: 12/22/23 02:02 Dose: 6 mg Documented By: MIRI Midodrine (Midodrine Hcl 2.5 Mg Tablet) 2.5 mg PO TID [facility] Last Admin: 12/22/23 09:20 Dose: 2.5 mg Documented By: SHANT Omeprazole (Omeprazole 20 Mg Capsule.) 20 mg PO BID@0630,1830 [facility] Last Admin: 12/22/23 05:43 Dose: 20 mg Documented By: MIRI Ondansetron HCl (Ondansetron Hcl 4 Mg/2 Ml Vial) 4 mg IVPUSH Q8H PRN PRN Reason: Nausea and Vomiting Sodium Chloride (0.9 % Sodium Chloride Flush 3 Ml Syringe) 3 ml IVFLUSH QSHIFT [facility] Last Admin: 12/22/23 09:08 Dose: Not Given Documented By: SHANT Non-Admin Reason: IV Running Thiamine HCl (Thiamine Hcl 100 Mg Tablet) 100 mg PO DAILY [facility] Last Admin: 12/22/23 09:06 Dose: 100 mg Documented By: SHANT Labs 12/20/23 06:33 12/22/23 05:43 Labs: Laboratory Results - last 24 hr 12/21/23 12/21/23 12/22/23 15:47 20:26 05:43 Anion Gap 10 L Estim Creat Clear Calc 108.9 Estimated GFR > 60 POC Glucose 100 99 Random Glucose 86 Calcium 8.6 D Magnesium 1.6 12/22/23 12/22/23 07:50 10:59 Anion Gap Estim Creat Clear Calc Estimated GFR POC Glucose 90 104 Random Glucose Calcium Magnesium Assessment and Plan (1) Acute hypotension: Status: Acute (2) JOHN (acute kidney injury): Status: Acute (3) Bradycardia, sinus: Status: Acute Plan 48/F with morbid obesity, dm, hld, depression here with dizziness associated with bradycardia and Hypotensio and also has JOHN Dizziness related to Hypotension and ? Bradycardia -IVF to maintain perfusing BP Hypotension--initially attributed to dehydration, volumed depletion and diuretics, negative sepsis work up, has history similar episodes in past Remained symptomatic -BP is still low continue IVF -start low-dose midodrine JOHN--likely pre-renal state related to renal hypoperfusion from hypotension, resolved Hypokalemia and Hypomagenesemia--corrected and resolved Bradycardia--Sinus, not related to med, no heart block.. Monitor, TSH normal, cortisol level as above, Lyme Ab negative, atropine if symtomatic Stopping Lexapro, as case report point to possible bradycardia Continue heart monitoring for the next 24-48 hours Borderline diabetes-- hold metformin, A1C 5 Mood disorder Hold citalopram as above We will need outpatient follow-up with prescriber Class 3 obesity--Weight loss advise, encourage exercise and caloric restriction HLD--statin GERD--PPI DVT prophylaxis--Lovenox Full code need for inpt: Symptomatic bradycardia and Hypotension Quality Stroke Does the patient have a stroke diagnosis?: No VTE Prior VTE?: No VTE Risk Level:: Medical - moderate - high VTE Device Contraindication: Treatment Not Indicated VTE Drug Contraindication: N/A - Med Ordered
[2023-12-22] MEDS: Enoxaparin Sodium 40 MG/0.4 ML SYRINGE SUBCUT (14:44)
[2023-12-22 16:59] LABS: Glucose, Whole Blood 84 mg/dL (60-115)
[2023-12-22] MEDS: Lactated Ringers 1,000 ML 100 ML IVCONT (18:22)
[2023-12-22 20:11] LABS: Glucose, Whole Blood 101 mg/dL (60-115)
[2023-12-22] MEDS: Atorvastatin Calcium 40 MG TABLET PO (20:11)
[2023-12-23] MEDS: Melatonin 3 MG TABLET 6 MG PO (02:50)
[2023-12-23 03:25] VITALS: BP 108/61; PULSE 51; RESP 18; TEMP 36.3; O2SAT 94
[2023-12-23] MEDS: Lactated Ringers 1,000 ML 100 ML IVCONT (04:50)
[2023-12-23] MEDS: Omeprazole 20 MG CAPSULE.DR PO ×2 (06:09→18:01)
[2023-12-23 07:27] LABS: Glucose, Whole Blood 77 mg/dL (60-115)
[2023-12-23 07:29] VITALS: BP 94/54; PULSE 52; RESP 18; TEMP 36.1; O2SAT 93
[2023-12-23 08:46] VITALS: BMI 49.7
[2023-12-23] MEDS: Docusate Sodium 100 MG CAPSULE PO (08:54)
[2023-12-23] MEDS: Thiamine HCL 100 MG TABLET PO (08:54)
[2023-12-23] MEDS: Folic Acid 1 MG TABLET PO (08:55)
[2023-12-23] MEDS: Midodrine HCl 2.5 MG TABLET PO (08:55)
[2023-12-23] MEDS: Aspirin Enteric Coated 81 MG TABLET.DR PO (08:55)
--- NOTE | 2023-12-23 10:58 | PM.PNCARD ---
Subjective Subjective Date of Service: 12/23/23 Principal diagnosis: Low blood pressure, sinus bradycardia. Interval history: Patient with sinus bradycardia although improved. Remains hypotensive despite significant fluid as well as midodrine use. Review of Systems Constitutional: Reports no additional constitutional complaints Cardiovascular: Reports lightheadedness Gastrointestinal: Reports no additional gastrointestinal complaints Musculoskeletal: Reports no additional musculoskeletal complaints Psychiatric: Reports no additional psychiatric complaints Physical Exam Vital Signs: Last Vital Signs Temp 97.0 F 12/23/23 07:29 Pulse 52 12/23/23 07:29 Resp 18 12/23/23 07:29 BP 94/54 L 12/23/23 07:29 Pulse Ox 93 12/23/23 07:29 O2 Del Method Room Air 12/23/23 07:29 BMI result Body Mass Index 49.7 Const General: cooperative, comfortable, no acute distress, alert and awake Nutritional Appearance: obese morbidly obese Orientation/consciousness: patient oriented x3 Limitations: no limitations HEENT Head: Yes normocephalic and Yes atraumatic Neck Neck: Yes trachea midline, Yes supple and Yes no JVD Resp Effort & Inspection: normal respiratory effort Auscultation: clear to auscultation bilaterally Cardio Jugular venous distension: no JVD Rate: bradycardic Rhythm: regular rhythm Heart sounds: S1 normal heart sound present, S2 normal heart sound present, no click, no gallops and no murmurs GI Auscultation: normal bowel sounds Skin General skin exam: no rashes or lesions noted Neuro General: patient oriented x3 and no focal motor deficits Extrem General: Yes no clubbing, cyanosis or edema Objective Labs and Meds 12/20/23 06:33 12/22/23 05:43 Lab results: Laboratory Results - last 24 hr 12/22/23 12/22/23 12/22/23 10:59 16:31 20:08 POC Glucose 104 84 101 12/23/23 07:22 POC Glucose 77 Progress Note: A&P Assessment and plan (1) Acute hypotension: Status: Acute Assessment and Plan: Acute hypotension, question Xarelto in uptake inhibitor toxicity versus autonomic dysfunction. Has received a lot of fluid. Would switch to oral fluids. Increase midodrine to 5 mg t.i.d.. Continue monitor blood pressure closely. Management discussed with patient (2) Bradycardia, sinus: Status: Acute Assessment and Plan: Sinus bradycardia which is gradually improving. Also think to be related to escitalopram toxicity. Avoid rate lowering medication. Continue full disclosure cardiac telemetry. No indication for pacing. Will follow with you Time Spent With Patient Time: Total time managing care of this patient today ____ minutes. Progress Note: Quality Stroke Does the patient have a stroke diagnosis?: No Procedures Date of Service Date of Service: 12/23/23
[2023-12-23 11:09] VITALS: BP 91/52; PULSE 49; RESP 20; TEMP 36.1; O2SAT 94
[2023-12-23 11:10] LABS: Glucose, Whole Blood 98 mg/dL (60-115)
[2023-12-23] MEDS: Butalb/Acetamin/Caff 50/325/40 TABLET 1 TAB PO (11:25)
--- NOTE | 2023-12-23 11:30 | MHC.CM.PN ---
Per ROUNDS discussion, Patient is not yet medically cleared for dc (needs 1 more day on tele); CM will follow.
--- NOTE | 2023-12-23 11:40 | P.PNIM_ITS ---
Subjective Subjective Date of Service: 12/23/23 Interval History: Seen and examined this morning Follow-up for low blood pressure kind of bradycardia Heart rate somewhat better, blood pressure remains low but patient asymptomatic Review of Systems Review of Systems: Yes all other systems are reviewed and are negative Constitutional Constitutional: Denies chills and Denies fever(s) ENT Ears, Nose, Mouth, and Throat: Denies dizziness Cardiovascular Cardiovascular: Denies chest pain Neurologic Neurologic: Denies dizziness Physical Exam 2 Vital Signs: Vital Signs: Last Vital Signs Temp 96.9 F 12/23/23 11:09 Pulse 49 L 12/23/23 11:09 Resp 20 12/23/23 11:09 BP 91/52 L 12/23/23 11:09 Pulse Ox 94 12/23/23 11:09 O2 Del Method Room Air 12/23/23 11:09 BMI result Body Mass Index 49.7 Const: Nutritional Appearance: well nourished Orientation/consciousness: p atient oriented x3 HEENT: Head: Yes normocephalic and Yes atraumatic Eyes: Sclerae: sclerae normal Resp: Effort & Inspection: normal respiratory effort and no respiratory distress Auscultation: clear to auscultation bilaterally Cardio: Rate: bradycardic GI: Palpation (GI): Soft to palpation and nontender Skin: General skin exam: no rashes or lesions noted Neuro: General: patient oriented x3 Cranial nerves: Yes CN's II-XII intact bilaterally and Yes Bilaterally intact EOM present Extrem: General: Yes no pedal edema Objective Data Active Medications Acetaminophen (Acetaminophen 325 Mg Tablet) 650 mg PO Q6H PRN PRN Reason: Pain, Mild (Pain Scale 1-3), fever or headache Aspirin (Aspirin Enteric Coated 81 Mg Tablet.) 81 mg PO DAILY [facility] Last Admin: 12/23/23 08:55 Dose: 81 mg Documented By: EZE Atorvastatin Calcium (Atorvastatin Calcium 40 Mg Tablet) 40 mg PO BEDTIME [facility] Last Admin: 12/22/23 20:11 Dose: 40 mg Documented By: PRISCILLA Calcium Carbonate (Calcium Carbonate 750 Mg Tab.Chew) 750 mg PO Q4H PRN PRN Reason: Heartburn Docusate Sodium (Docusate Sodium 100 Mg Capsule) 100 mg PO DAILY [facility] Last Admin: 12/23/23 08:54 Dose: 100 mg Documented By: EZE Enoxaparin Sodium (Enoxaparin Sodium 40 Mg/0.4 Ml Syringe) 40 mg SUBCUT Q24H [facility] Last Admin: 12/22/23 14:44 Dose: 40 mg Documented By: SHANT Folic Acid (Folic Acid 1 Mg Tablet) 1 mg PO DAILY [facility] Last Admin: 12/23/23 08:55 Dose: 1 mg Documented By: EZE Glucose (Glucose Gel 15 Gm Gel..Gram.) 15 gm PO Q15M PRN; Protocol PRN Reason: per Hypoglycemia Standing Ord. Dextrose (D10) 250 mls @ 750 mls/hr IV Q15M PRN; Protocol PRN Reason: per Hypoglycemia Standing Ord. Insulin Human Lispro (Insulin Lispro 100 Unit/Ml 3 Ml Vial) 0 unit SUBCUT QIDACHS [facility]; Protocol Last Admin: 12/23/23 11:23 Dose: Not Given Documented By: EZE Non-Admin Reason: No Insulin Coverage Magnesium Hydroxide (Milk Of Magnesia 30 Ml Oral.Susp) 30 ml PO DAILY PRN PRN Reason: Constipation Last Admin: 12/21/23 08:16 Dose: 30 ml Documented By: SHANT Melatonin (Melatonin 3 Mg Tablet) 6 mg PO BEDTIME PRN PRN Reason: Insomnia Last Admin: 12/23/23 02:50 Dose: 6 mg Documented By: PRISCILLA Midodrine (Midodrine Hcl 5 Mg Tablet) 5 mg PO TID [facility] Omeprazole (Omeprazole 20 Mg Capsule.Dr) 20 mg PO BID@0630,1830 [facility] Last Admin: 12/23/23 06:09 Dose: 20 mg Documented By: PRISCILLA Ondansetron HCl (Ondansetron Hcl 4 Mg/2 Ml Vial) 4 mg IVPUSH Q8H PRN PRN Reason: Nausea and Vomiting Sodium Chloride (0.9 % Sodium Chloride Flush 3 Ml Syringe) 3 ml IVFLUSH QSHIFT [facility] Last Admin: 12/23/23 08:40 Dose: Not Given Documented By: EZE Non-Admin Reason: IV Running Thiamine HCl (Thiamine Hcl 100 Mg Tablet) 100 mg PO DAILY [facility] Last Admin: 12/23/23 08:54 Dose: 100 mg Documented By: EZE Labs 12/20/23 06:33 12/22/23 05:43 Labs: Laboratory Results - last 24 hr 12/22/23 12/22/23 12/23/23 16:31 20:08 07:22 POC Glucose 84 101 77 12/23/23 11:07 POC Glucose 98 Assessment and Plan (1) Bradycardia, sinus: Status: Acute (2) Acute hypotension: Status: Acute Plan 48/F with morbid obesity, dm, hld, depression here with dizziness associated with bradycardia and Hypotensio and also has JOHN Dizziness related to Hypotension and ? Bradycardia dizziness improved stop IVF and monitor closely Hypotension- initially attributed to dehydration, volumed depletion and diuretics, negative sepsis work up, has history similar episodes in past Remained symptomatic ?autonomic dysfunction stop IVF increase dose of midodrine JOHN- likely pre-renal state related to renal hypoperfusion from hypotension, resolved Hypokalemia and Hypomagenesemia--corrected and resolved Bradycardia--Sinus, not related to med, no heart block.. Monitor, TSH normal, cortisol level as above, Lyme Ab negative, atropine if symtomatic Stopping Lexapro, as case report point to possible bradycardia Continue heart monitoring for the next 24-48 hours Borderline diabetes-- hold metformin, A1C 5 Mood disorder Hold citalopram as above We will need outpatient follow-up with prescriber Class 3 obesity--Weight loss advise, encourage exercise and caloric restriction she reports 90 lb weight loss in past two months however weight is stable from previous admission HLD--statin GERD--PPI DVT prophylaxis--Lovenox Full code need for inpt: Symptomatic bradycardia and Hypotension Quality Stroke Does the patient have a stroke diagnosis?: No VTE Prior VTE?: No VTE Risk Level:: Medical - moderate - high VTE Device Contraindication: Treatment Not Indicated VTE Drug Contraindication: N/A - Med Ordered
--- NOTE | 2023-12-23 13:07 | MHC.CM.PN ---
VANGIE received a call from Remington from [facility]; should Patient be medically cleared for dc over this weekend, VANGIE should contact Shahla @ [phone].
[2023-12-23] MEDS: Enoxaparin Sodium 40 MG/0.4 ML SYRINGE SUBCUT (14:35)
[2023-12-23] MEDS: Midodrine HCl 5 MG TABLET PO ×2 (14:35→20:30)
[2023-12-23 16:00] VITALS: BP 92/54; PULSE 52; RESP 18; TEMP 36.1; O2SAT 99
[2023-12-23 16:36] LABS: Glucose, Whole Blood 89 mg/dL (60-115)
[2023-12-23 20:00] VITALS: BP 109/59; PULSE 56; RESP 18; TEMP 36.2; O2SAT 97
[2023-12-23] MEDS: 0.9 % Sodium Chloride Flush 3 ML SYRINGE IVFLUSH (20:30)
[2023-12-23] MEDS: Atorvastatin Calcium 40 MG TABLET PO (20:30)
[2023-12-23 21:06] LABS: Glucose, Whole Blood 118 mg/dL (60-115)
[2023-12-24] VITALS (7 sets, daily range): BP systolic 106–128; BP diastolic 55–74; PULSE 41–56; RESP 18–22; TEMP 36.2–36.6; O2SAT 94–96
[2023-12-24] MEDS: Melatonin 3 MG TABLET 6 MG PO (04:14)
[2023-12-24] MEDS: Omeprazole 20 MG CAPSULE.DR PO (05:49)
[2023-12-24 07:05] LABS: Glucose, Whole Blood 83 mg/dL (60-115)
[2023-12-24 07:36] LABS: Vitamin B12 536 pg/mL (200-900)
[2023-12-24] MEDS: 0.9 % Sodium Chloride Flush 3 ML SYRINGE IVFLUSH (08:11)
[2023-12-24] MEDS: Docusate Sodium 100 MG CAPSULE PO (08:11)
[2023-12-24] MEDS: Aspirin Enteric Coated 81 MG TABLET.DR PO (08:11)
[2023-12-24] MEDS: Thiamine HCL 100 MG TABLET PO (08:11)
[2023-12-24] MEDS: Folic Acid 1 MG TABLET PO (08:11)
[2023-12-24] MEDS: Midodrine HCl 5 MG TABLET PO ×2 (08:11→14:16)
[2023-12-24 10:59] LABS: Glucose, Whole Blood 105 mg/dL (60-115)
--- NOTE | 2023-12-24 13:25 | PM.PNCARD ---
Subjective Subjective Date of Service: 12/24/23 Principal diagnosis: Low blood pressure, sinus bradycardia. Interval history: Patient sinus bradycardia with improving heart rate in the 50s. With ambulation going up to 70s. Blood pressures improved with midodrine therapy. Review of Systems Constitutional: Reports no additional constitutional complaints Cardiovascular: Denies chest pain, Denies rapid heart rate, Reports lightheadedness, Denies dyspnea and Reports slow heart rate Respiratory: Denies dyspnea Genitourinary: Reports no additional female genitourinary complaints Musculoskeletal: Reports no additional musculoskeletal complaints Reports system reviewed and no additional complaints, except as documented Physical Exam Vital Signs: Last Vital Signs Temp 97.9 F 12/24/23 10:58 Pulse 56 12/24/23 13:00 Resp 18 12/24/23 10:58 BP 106/60 12/24/23 13:00 Pulse Ox 94 12/24/23 10:58 O2 Del Method Room Air 12/24/23 10:58 BMI result Body Mass Index 49.7 Const General: cooperative, comfortable, no acute distress, alert and awake Nutritional Appearance: obese morbidly obese Orientation/consciousness: patient oriented x3 Limitations: no limitations HEENT Head: Yes normocephalic and Yes atraumatic Neck Neck: Yes trachea midline, Yes supple and Yes no JVD Resp Effort & Inspection: normal respiratory effort Auscultation: clear to auscultation bilaterally Cardio Jugular venous distension: no JVD Rate: bradycardic Rhythm: regular rhythm Heart sounds: S1 normal heart sound present, S2 normal heart sound present, no click, no gallops and no murmurs GI Auscultation: normal bowel sounds Skin General skin exam: no rashes or lesions noted Neuro General: patient oriented x3 and no focal motor deficits Extrem General: Yes no clubbing, cyanosis or edema Objective Labs and Meds 12/20/23 06:33 12/22/23 05:43 Lab results: Laboratory Results - last 24 hr 12/23/23 12/23/23 12/24/23 16:32 20:56 06:13 POC Glucose 89 118 H Vitamin B12 536 Folate 10.0 12/24/23 12/24/23 07:00 10:55 POC Glucose 83 105 Vitamin B12 Folate Progress Note: A&P Assessment and plan (1) Bradycardia, sinus: Status: Acute Assessment and Plan: Sinus bradycardia avoid escitalopram therapy in the future and other rate lowering medication. Will set up for outpatient follow up with Holter monitor and echocardiogram. Also suggest VT 2 to evaluate chronotropic competence. I do not think patient he is pacing therapy. Can be discharged from my perspective. (2) Acute hypotension: Status: Acute Assessment and Plan: Hypertension unclear etiology question autonomic dysfunction. Continue aggressive oral hydration. Has responded well to midodrine therapy. Continue the same. Workup for neuropathy needs to be pursued. Will follow up as outpatient. Thank you for allowing me to partake in her care Time Spent With Patient Time: Total time managing care of this patient today ____ minutes. Progress Note: Quality Stroke Does the patient have a stroke diagnosis?: No Procedures Date of Service Date of Service: 12/24/23
--- NOTE | 2023-12-24 13:50 | P.DS_ITS ---
DS: Providers Provider Date of Service: 12/24/23 Date of admission: 12/19/23 14:15 Date of discharge: 12/24/23 Primary care physician: LOC Delaney Consults: 12/20/23 10:52 Consult to Cardiology Routine Consulting Provider: [facility] Reason for consultation: bradycardia Attending physician on discharge: [facility] Discharging clinician: Hien Carroll DS: Diagnosis Discharge Diagnosis (1) Bradycardia, sinus: Status: Acute (2) Acute hypotension: Status: Acute DS: Summary Hospital Course Hospital Course: From H&P on the day of admission 48-year-old female patient resident of fdc with past medical history significant for borderline diabetes, morbid obesity, fatty liver currently residing in a fdc for last 1 month for alcohol recovery and treatment for depression at baseline she ambulates with a cane. She presents with dizziness and noted to be hypotensive and bradardic. She has been on Lasix for lower extremity edema but was stopped last. She reports not eating well or drinking enough. Her blood pressure was reported to be 90/60 at the house. Her blood presure profiles is as follow since she came to the ED. Dizziness initially related to Hypotension and ? Bradycardia. Orthostatics initially positive. Patient was treated with IV fluid and orthostatics are now negative. 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 Patient has been able to ambulate with assistive device as per her baseline in the hallway without dizziness. Hypotension- initially attributed to dehydration, volumed depletion and diuretics, negative sepsis work up, has history similar episodes in past. Although hypotension has remained persistent, patient is now asymptomatic. She was started on low-dose midodrine and titrated to 5 mg 3 times daily with improvement in her blood pressure. As above she remains asymptomatic and is able to ambulate without symptoms. Possible autonomic dysfunction due to chronic alcohol use, may need further outpatient work up. Recommend outpatient follow-up with PCP. continue midodrine upon discharge. JOHN- likely pre-renal state related to renal hypoperfusion from hypotension, resolved with IV fluid. IV fluid was discontinued and with midodrine patient has been able to maintain perfusing blood pressure. Kidney function has remained stable. Hypokalemia and Hypomagenesemia--corrected and resolved Bradycardia-seen by cardiology during hospitalization. noted to be in Sinus bradycardia, not on any rate control medications. no heart block. TSH normal, cortisol level wnl, Lyme Ab negative. Stopping Lexapro, as case report point to possible bradycardia. Heart rate has improved slightly off of SSRI and may continue to improve as this medication washes out of her system, but unclear if that is the cause. Would recommend close outpatient follow-up. Has remained asymptomatic, no sinus pauses. HR showed appropriate rise to the 70s with exertion and as above patient was able to ambulate in the hallway without symptoms. Borderline diabetes- hold metformin, A1C 5. will stop upon discharge. can follow up with PCP Mood disorder Hold citalopram as above. will need outpatient follow-up with prescriber for alternative medication. Class 3 obesity--Weight loss advise, encourage exercise Time Attestation Discharge Coordination Time (in mins): 40 Quality: Safe Use of Opioids Does Pt have an Active Cancer Diagnosis on the Problem List?: No Quality: Stroke Does the patient have a stroke diagnosis?: No Physical Exam Vital Signs: Vital Signs: Last Vital Signs Temp 97.9 F 12/24/23 10:58 Pulse 56 12/24/23 13:00 Resp 18 12/24/23 10:58 BP 106/60 12/24/23 13:00 Pulse Ox 94 12/24/23 10:58 O2 Del Method Room Air 12/24/23 10:58 BMI result Body Mass Index 49.7 Const: Nutritional Appearance: well nourished Orientation/consciousness: patient oriented x3 HEENT: Head: Yes normocephalic and Yes atraumatic Eyes: Sclerae: sclerae normal Resp: Effort & Inspection: normal respiratory effort and no respiratory distress Auscultation: clear to auscultation bilaterally Cardio: Rate: bradycardic GI: Palpation (GI): Soft to palpation and nontender Skin: General skin exam: no rashes or lesions noted Neuro: General: patient oriented x3 Cranial nerves: Yes CN's II-XII intact bilaterally and Yes Bilaterally intact EOM present Extrem: General: Yes no pedal edema DS: Data Data Completed and Pending Labs on day of discharge: Laboratory Results - last 24 hr 12/23/23 12/23/23 12/24/23 16:32 20:56 06:13 POC Glucose 89 118 H Vitamin B12 536 Folate 10.0 12/24/23 12/24/23 07:00 10:55 POC Glucose 83 105 Vitamin B12 Folate Discharge Plan Discharge Anticipated Discharge Date/Time: 12/24/23 14:12 Patient Disposition: Home, Self-Care Discharge Diagnosis: bradycardia hypotension JOHN Referrals: El Hanna MD [Physician] - 1 Week Tiffanie Mesa PA [Primary Care Provider] - 1 Week Discharge Medications: New midodrine 5 mg Tablet 5 mg PO TID 90 Days Qty: 270 0RF Continued thiamine HCl (vitamin B1) 100 mg tablet 100 mg PO DAILY meclizine 25 mg tablet 25 mg PO BID PRN (Reason: Dizziness) pantoprazole 40 mg Tablet,Delayed Release (Dr/Ec) 40 mg PO BID@0630,1830 atorvastatin 40 mg Tablet 40 mg PO BEDTIME Qty: 30 0RF aspirin 81 mg Tablet,Delayed Release (Dr/Ec) 81 mg PO DAILY Qty: 30 0RF folic acid 1 mg Tablet 1 mg PO DAILY Qty: 30 0RF Discontinued metformin 500 mg tablet 500 mg PO DAILY ibuprofen 800 mg tablet 800 mg PO BID PRN (Reason: Pain) escitalopram oxalate 20 mg tablet 20 mg PO DAILY furosemide 20 mg Tablet 20 mg PO DAILY PRN (Reason: Edema) Discharge Orders: Discharge Order (Routine); Ordered 12/24/23 Ordered By: Hien Carroll Activity on Discharge: As tolerated Stand Alone Forms: Patient Portal Discharge page Print Language: Bengali Care Plan Goals: see below Health Concerns: JOHN Bradycardia Hypotension Plan of Treatment: Take midodrine as prescribed to assist with low blood pressure Stop taking Lasix as this can contribute to dehydration, hypertension, renal dysfunction Kidney function has returned to baseline Stop taking citalopram as this is thought to be contributing to bradycardia. Please follow-up with outpatient prescriber for alternative regimen for mental health Call to schedule follow-up appointment with PCP Call to schedule follow-up appointment with Cardiology HB A1c noted to be low, stop metformin Assessment: See discharge summary
--- NOTE | 2023-12-24 13:54 | MHC.CM.PN ---
Addendum entered by Vika Chavez 12/24/23 14:55: Pt was receiving PT and OT from [facility] [place] prior to hosp stay. Clinical info send to [facility] via [employer], including DC summary and face to face for their continued service to pt. Original Note: Pt has been medically cleared for DC. She will return to the [facility] residence via [employer] today. CM confirmed with Shahla at [facility] that Pt. can return.
--- NOTE | 2023-12-24 14:12 | W.MHC.F2F ---
Service Date Service Date: 12/24/23 Encounter Date of encounter: 12/24/23 Reasons for Services Signs and symptoms assessed: resume PT/OT services for chronic ataxia Overseeing Care: Tiffanie Lala Homebound: Leaving the home is medically contraindicated at this time without the asist of a device and/or another person due th the listed conditions above and below. Reason homebound: unsteady gait / fall risk Certification: Based on the above findings, I certify that this patient is confined to the home and needs intermittent fdc care, physical therapy and/or speech therapy, or continues to need occupational therapy. The patient is under my care, and I have initiated the establishment of the plan of care. The patient will be followed by a physician who will periodically review the plan of care. Time Spent With Patient Time: Total time managing care of this patient today ____ minutes.
[2023-12-24] MEDS: Enoxaparin Sodium 40 MG/0.4 ML SYRINGE SUBCUT (14:16)
--- NOTE | 2024-01-06 07:49 | MHC.CM.PN ---
CM has faxed dc summary and face to face to [facility].
== END 2023-12-24 15:10 | disposition home health service (06) | DRG 48 ==
LOC: HO.ED 13:15 → HO.EDOVER 14:19 → HO.IMC 19:21
PROVIDERS: Admitting Provider Internal Medicine; Emergency Provider Emergency Medicine; PCP Physician Assistant; Visit Provider Physician Assistant Medical
DX: G90.9 Disorder of the autonomic nervous system, unspecified (principal); N17.9 Acute kidney failure, unspecified; I95.9 Hypotension, unspecified; K76.0 Fatty (change of) liver, not elsewhere classified; E86.0 Dehydration; E66.01 Morbid (severe) obesity due to excess calories; R73.03 Prediabetes; F10.91 Alcohol use, unspecified, in remission; T43.225A Adverse effect of selective serotonin reuptake inhibitors, initial encounter; F39 Unspecified mood [affective] disorder; E87.6 Hypokalemia; E83.42 Hypomagnesemia; K21.9 Gastro-esophageal reflux disease without esophagitis; E78.5 Hyperlipidemia, unspecified; R00.1 Bradycardia, unspecified; Z86.73 Personal history of transient ischemic attack (TIA), and cerebral infarction without residual deficits; Z68.42 Body mass index [BMI] 45.0-49.9, adult; Z79.82 Long term (current) use of aspirin; Z79.899 Other long term (current) drug therapy
CPT/HCPCS: 36415; 80048; 80076; 81003; 82533; 82607; 82746; 82947; 83036; 83735; 84443; 84484; 85025; 86617; 86618; 93005; 93306; 93356; 99285; J1650; J3475; J7120; Q9957

== ENCOUNTER → 2023-12-19 09:37 | Outpatient (BNV) | payer MEDICAID, SELFPAY | PROVIDERS: Admitting Provider Internal Medicine; Emergency Provider Emergency Medicine; PCP Physician Assistant; Visit Provider Internal Medicine Cardiovascular Disease | DX: R94.31 Abnormal electrocardiogram [ECG] [EKG] (principal) | CPT/HCPCS: 93010 ==

== ENCOUNTER 2023-12-19 14:15 | Outpatient (BNV) | payer MEDICAID, SELFPAY | END 2023-12-20 07:00 | PROVIDERS: Admitting Provider Internal Medicine; Emergency Provider Emergency Medicine; PCP Physician Assistant; Visit Provider Internal Medicine Cardiovascular Disease | DX: I34.0 Nonrheumatic mitral (valve) insufficiency (principal) | CPT/HCPCS: 93306 ==

== ENCOUNTER → 2023-12-19 14:15 | Outpatient (BNV) | payer MEDICAID, SELFPAY | PROVIDERS: Admitting Provider Internal Medicine; Emergency Provider Emergency Medicine; PCP Physician Assistant; Visit Provider Internal Medicine Cardiovascular Disease | DX: I95.9 Hypotension, unspecified (principal); R00.1 Bradycardia, unspecified | CPT/HCPCS: 99222; 99233 ==

== ENCOUNTER → 2023-12-19 14:15 | Outpatient (BNV) | payer MEDICAID, SELFPAY | PROVIDERS: Admitting Provider Internal Medicine; Emergency Provider Emergency Medicine; PCP Physician Assistant; Visit Provider Internal Medicine | DX: R00.1 Bradycardia, unspecified (principal); I95.9 Hypotension, unspecified; N17.9 Acute kidney failure, unspecified; R27.0 Ataxia, unspecified | CPT/HCPCS: 99223; 99232; 99233; 99239; G0180 ==

== ENCOUNTER → 2024-01-11 07:29 | Outpatient (REF) | payer MEDICAID, SELFPAY ==
--- NOTE | 2024-01-11 07:33 | HM_ITS ---
Conclusion: 1. Patient was monitored for total period of 2 days 2. Baseline was normal sinus rhythm with average heart of 66 beats per minute 3. Frequent sinus bradycardia noted with 46% of time heart rate below 60 beats per minute without any significant pauses 4. No significant arrhythmias noted 5. Patient marked the counter 2 times with symptoms of chest pain and palpitations correlating with sinus rhythm MTDD
--- NOTE | 2024-01-11 09:21 | CA_ITS ---
Acquisition Time: 2024-01-11 08:00:48 Total Exercise Time: 00:04:07 Test Indications: BRADYCARDIA Medications: SEE H Protocol: ABBI Max HR: 141 BPM 81% of Pred: 172 BPM Max BP: 144/054 mmHG Max Work Load: 5.6 METS Exercise stress test exercise 4 min 7 sec of Abbi protocol achieving approximately 82% MPHR, with moderate to severe SOB, with isolaed PVCs, with good heart rate response, with normotensive response to exercise, with nondiagnoistic EKGs for ischemia. Breathing returned to baseline with rest. Test reviewed with Dr. Hanna. Referred By: El Hanna Overread By: Angela Tom
== END ==
LOC: HO.CARD 07:29
PROVIDERS: PCP Physician Assistant; Visit Provider Internal Medicine Cardiovascular Disease
DX: R00.1 Bradycardia, unspecified (principal); I95.9 Hypotension, unspecified
CPT/HCPCS: 93017; 93225

== ENCOUNTER → 2024-01-11 09:21 | Outpatient (BNV) | payer MEDICAID, SELFPAY | PROVIDERS: PCP Physician Assistant; Visit Provider Nurse Practitioner | DX: R00.1 Bradycardia, unspecified (principal) | CPT/HCPCS: 93016; 93018; 93227 ==

== ENCOUNTER 2024-01-30 09:13 | Outpatient (AMB) | payer MEDICAID, SELFPAY ==
--- NOTE | 2024-01-30 09:19 | MHC.OFFVIS ---
Vital Signs 01/30/24 09:20 Height 5 ft 3 in Weight 242 lb 1.081 oz BMI 42.9 BP 100/72 Blood Pressure Location Lt brachial Position Sitting Pulse 91 Pulse Source Pulse Oximeter Intake Visit Reasons: [facility] ED fu -bradycardio/hypotension Medicine Worker Required: No Allergies No Known Allergies Allergy (Verified 01/30/24 09:22) Medication List - Last Reconciled 01/30/24 by Karli Sims, HANNAH-C aspirin 81 mg PO DAILY atorvastatin 40 mg PO BEDTIME duloxetine 60 mg PO DAILY folic acid 1 mg PO DAILY meclizine 25 mg PO BID PRN midodrine 5 mg PO TID 90 days pantoprazole 40 mg PO BID@0630,1830 thiamine HCl (vitamin B1) 100 mg PO DAILY HPI HPI [facility] ED fu -bradycardio/hypotension: Details: Sri is a 48-year-old female with past medical history of alcohol abuse, CVA who was recently admitted to [facility] with dizziness and found to have bradycardia, hypotension, JOHN. She was treated for dehydration and started on midodrine. Her pro was stopped. Vital signs did improve and she was discharged with plan for outpatient Holter and exercise stress test. Today she reports that she has been doing generally well since her hospital discharge. She still has some issues with lightheadedness at times. She ambulates with a walker and has not had any presyncope, syncope, falls. She does get short of breath with physical activity which is not new. No PND, orthopnea. She will get mild leg edema at times, currently she states they are looking good. She will get random pains to her left chest, localized area that occur without pattern. She admits to being very sedentary. She is mildly anxious today. She has been taking her medications. [facility] Medical History Shortness of breath Hyperlipidemia Gait disturbance Alcoholic cerebellar degeneration Chronic cerebrovascular accident (CVA) Social History Household Members: Other Household Members Other:: shelter Housing: Assisted Living Facility Unable to assess alcohol history related to: Unable to respond Alcohol intake: former Patient Tobacco Use Status: Former Tobacco user Tobacco use type: Cigarette e-Cigarette/Vaping Use: Never Used Advance Directives Date on File: 10/24/23 service: No Review of Systems Const All systems reviewed & are unremarkable except as noted in HPI and below ENT Reports dizziness Card Reports chest pain (random pain in left chest), Denies chest pain at rest, Denies chest pain with activity, Denies rapid heart rate, Denies pedal edema, Denies edema, Reports leg edema, Denies lightheadedness, Denies palpitations, Denies dyspnea, Reports dyspnea on exertion and Denies orthopnea Resp Denies cough, Denies dyspnea and Reports dyspnea on exertion GI Denies hematochezia and Denies change in stool character Musc Reports abnormal gait (uses walker), Reports limited range of motion, Reports muscle cramps, Denies muscle weakness, Denies numbness, Denies radiating pain into limb, Denies stiffness and Denies tingling Neuro Reports abnormal gait (uses walker), Reports dizziness, Denies numbness and Denies tingling Endo Denies palpitations Physical Exam Vital Signs: Last Vital Signs Pulse 91 01/30/24 09:20 BP 100/72 01/30/24 09:20 BMI result Body Mass Index 42.9 Const General: cooperative, healthy appearing, comfortable and no acute distress Orientation/consciousness: patient oriented x3 Neck Neck: Yes normal visual inspection and Yes no JVD Resp Effort & Inspection: normal respiratory effort Auscultation: clear to auscultation bilaterally, no rales and no rhonchi Cardio Jugular venous distension: no JVD Rate: regular rate Rhythm: regular rhythm Heart sounds: S1 normal heart sound present, S2 normal heart sound present, no murmurs and no rubs Neuro General: patient oriented x3 Extrem General: Yes normal to inspection, No no pedal edema and No calf tenderness Psych Appearance: grossly normal Mental Status: mental status grossly normal Speech and movement: Normal speech and movement present Assessment & Plan Assessment & Plan (1) Bradycardia, sinus: Code(s): R00.1 - Bradycardia, unspecified Category: Medical Plan: Recent [facility] admission with dizziness and found to have hypotension and sinus bradycardia with rates in the 40s. She was treated for dehydration. She had been taking Lasix for leg edema and was not drinking enough liquids. Her TSH was normal, Lyme test negative, cortisol normal. She was monitored on IMC without any evidence of heart block. Her Lexapro was stopped as it may contribute to bradycardia. Her heart rate did gradually improve to normal range. An echocardiogram was done 12/20/2023 which showed normal study. An outpatient Holter was done on 01/11/2024 for 2 days showing sinus rhythm with average heart rate 66, 46% of the time heart rate less than 60. An exercise stress test was done on 01/11/2024 showing exercise 4 minutes, achieving heart rate 82% MPHR, with moderate to severe shortness of breath. Due to her per activity tolerance and shortness of breath a pharmacological nuclear stress test has been ordered however not completed as of yet. Spent time reviewing all test results and the details of the next test with her. She does have history of claustrophobia but states she has done this type of test in the past and will be able to complete it. Pulse is high normal today, 91 and when rechecked by me using sat monitor 100 beats per minute. She admits to having some anxiety about this office visit. Her blood pressure is on the low side. She has a water bottle with her, I had her drink 16 oz prior to leaving this visit. Plan to call her with stress test results. Cardiology office visit 3 months, sooner if needed. (2) Shortness of breath: Code(s): R06.02 - Shortness of breath Category: Medical Plan: As above (3) Acute hypotension: Code(s): I95.9 - Hypotension, unspecified Category: Medical Plan: Noted during recent hospitalization. Treated for dehydration. She was put on midodrine for blood pressure support. Blood pressure is on the low side today. She reports some mild dizziness at times. Reviewed the need for good hydration. Continue midodrine. (4) Hospital discharge follow-up: Code(s): Z09 - Encounter for follow-up examination after completed treatment for conditions other than malignant neoplasm Category: Medical Plan: As above Plan Time spent on chart review, documentation, interview and assessment Medications: Refilled midodrine 5 mg PO TID 90 days 270 tabs 1RF Coding Level of Care Code Est Pt Level 4 (15396) Diagnoses Bradycardia, sinus R00.1 Shortness of breath R06.02 Acute hypotension I95.9 Hospital discharge follow-up Z09 Time Spent (min) 28
[2024-01-30 09:20] VITALS: BP 100/72; PULSE 91; BMI 42.9
== END 2024-01-30 09:50 | disposition home or self-care (01) ==
PROVIDERS: PCP Physician Assistant; Visit Provider Nurse Practitioner Family
DX: R00.1 Bradycardia, unspecified (principal); R06.02 Shortness of breath; I95.9 Hypotension, unspecified; Z09 Encounter for follow-up examination after completed treatment for conditions other than malignant neoplasm
CPT/HCPCS: 99214

== ENCOUNTER → 2024-01-30 09:13 | Outpatient (BNVA) | payer MEDICAID, SELFPAY | PROVIDERS: PCP Physician Assistant; Visit Provider Nurse Practitioner Family | DX: I95.9 Hypotension, unspecified (principal); R00.1 Bradycardia, unspecified; R06.02 Shortness of breath; Z09 Encounter for follow-up examination after completed treatment for conditions other than malignant neoplasm; Z86.73 Personal history of transient ischemic attack (TIA), and cerebral infarction without residual deficits | CPT/HCPCS: 99212 ==

== ENCOUNTER → 2025-01-10 09:32 | Outpatient (REF) | payer MEDICAID, SELFPAY ==
--- NOTE | ~2025-01-10 | NM_ITS ---
Lexiscan Myocardial perfusion study Indication: Shortness of breath to evaluate for myocardial ischemia Technique: The patient was brought in for a Lexiscan perfusion study on 01/10/2025 and was injected 0.4 mg of Lexiscan intravenously. Within a minute of this injection 30 mCi of sestamibi was given intravenously. Images were obtained using the SPECT gamma camera interlaced with the gating device. Images were obtained in supine position. Resting perfusion study was performed on 01/18/2025. Patient was administered 30 mCi of sestamibi intravenously at rest. Images were then obtained in supine position. Images obtained without without CT attenuation. Total DLP 96 mGy-cm. Images were processed with the software and compared side to side in short axis, horizontal long axis and vertical long axis views. Findings: The stress perfusion study showed nonattenuated images show normal uptake of radiotracer in all segments of the LV myocardium. Attenuated images show diffusely reduced uptake in multiple segments of the LV myocardium, most likely due to subdiaphragmatic uptake interfering with myocardial uptake. The gated study shows normal LV systolic function with calculated LVEF of 63%. LV cavity is normal in size. The gated study shows normal systolic wall thickening and contraction of segments. Resting study shows nonattenuated images show normal uptake of radiotracer in all segments of the LV myocardium. Gating at rest reveals normal systolic wall motion with ejection fraction at greater than 60%. The findings are consistent with normal myocardial perfusion. NM/NM cardiolite stress test Impression: 1. Myocardial perfusion imaging study shows normal myocardial perfusion 2. Gated LVEF is 63% 3. Transient ischemic dilatation not present Nondiagnostic changes on EKG. Electronically signed by: El Hanna MD 01/18/2025 12:42 PM EDT
--- NOTE | 2025-01-10 09:34 | CA_ITS ---
Acquisition Time: 2025-01-10 09:50:06 Total Exercise Time: 00:02:00 Test Indications: CP Medications: SEE H&P Protocol: LEXISCAN Max HR: 114 BPM 66% of Pred: 171 BPM Max BP: 108/64 mmHG Max Work Load: 1.6 METS Pharmacological stress test with Lexiscan while pt walks slow on treadmill, with reports of SOB, headache, nausea, and dzziness, without any arrythmias, with hypotensive repsonse - lowest 80/58 with injection. Nondiagnostic eKG for ischemia. In recovery, pt treated with IVP Aminophylline 75 mg to reverse Lexiscan after which pt slowly feeling back to baseline. hydrated with 500 cc IVF and BP improved to baseline. Nuclear images pending. Test reviewed with Dr. Singletary. Referred By: Karli Sims Electronically Signed By: Sanchez Badillo
--- OUTSIDE RECORDS SUMMARY | 2025-01-10 10:36 | XMS_ITS | Encounter Summary ---
Author Organization [facility] Address [address] [place] [id number] Phone Care Team Providers Care Cokeman Name Role Phone Lashonda Matute RN Unavailable Mekhi Pagan Unavailable [email or web address] [email or web address] Mesa Primary Care Provider Mekhi Pagan Unavailable [email or web address] Mari Barraza MD Primary Care Provider [phone] Lashonda Matute RN Unavailable Keisha Gibson MBBS Unavailable [phone] Cydney Kwon Unavailable Cydney Kwon Unavailable Abril Blevins Unavailable [email or web address] Abril Blevins Unavailable eladio Encounter Details Date Type Department Care Team (Late st Contact Info) Description 08/03/2023 Procedure Pass [facility] Endoscopy Admitting Dept Virtual Department [address] [place] [address] Social History Tobacco Use Types Packs/Day Years Used Date Smoking Tobacco: Former Cigarettes Q uit: 08/14/2021 Smokeless Tobacco: Never Alcohol Use Standard Drinks/Week Comments Yes 72 (1 standard drink = 0.6 oz pu re alcohol) 12 nips per night est. Education Answer Date Recorded Are you interested in more education? Not on sharon e 09/10/2022 Are you concerned about learning? Not on file 09/10/2022 No 09/10/2022 No 09/10/2022 Digital Access Answer Date Recorded No 10/12/2022 No 10/12/2022 Reliable internet access at home? Not on file 10/12/2022 Device with a working camera? Not on file Intimate Partner Violence Answer Date R ecorded Denied Basic Needs Not on file 08/02/2023 In the past 12 months have y ou been in a relationship with a person who hurts, threatens, or tries to control you? No 08/02/2023 Worried food would run out Not on file 08/01 In the past 12 months have y ou been in a relationship with a person who hurts, threatens, or tries to control you? No 08/02/2023 Comments No Sex and Gender Information Value Date Recorded Sex Assigned at Not on file Legal Sex Female 12:15 PM EST Gender Identity Not on file Sexual Orientation Not on file documented as of this encounter Plan of Treatment Upcoming Encounters Date Type Department Care Team (Late st Contact Info) Description 01/17/2025 11:00 AM EDT Office Visit [facility] Orthopedics & Sports Medicine [address] [place] [address] Libby Norris MD [address] [place] [address] Orthopedics & Sports Medicine, [place] [address] [email or web address] documented as of this encounter Visit Diagnoses Not on filedocumented in this encounter Additional Health Concerns Infection Onset Date Last Indicated Resolved Time CDiff-Risk 10/06/2023 10/06/2023 10/13/2023 1:22 AM EDT Assessment Noted Time PHQ-9 Depression Total Score: 20 023 3:09 PM EDT PHQ-2 Depression Total Score: 5 07/29/19 23 3:09 PM EDT documented as of this encounter Care Teams Cokeman Relationship Specialty Start Date End Date Tiffanie Mesa PA [address] [place] [address] [place] [phone] PCP - General Physician Motel Front Desk Clerk 08/03/23 02/02/24 Mari Barraza MD [address] [place] [address] [place] [phone] [email or web address] PCP - General Family Medicine 02/03/24 Lashonda Matute, RN [address] [place] [phone] [email or web address] [facility] Quitline Counselor 07/16/22 02/29/[address] [place] [address] [address] [email or web address] Community Health Worker 10/20/22 08/16/[address] [address] [email or web address] Community [email or web address] Worker 09/06/23 02/29/24 Lashonda Matute RN [address] [place] [phone] [email or web address] [facility] Quitline Counselor 03/01/24 Keisha Gibson MBBS [address] [place] [address] [place] [address] [email or web address] Medical Oncology 05/29/24 Cydney Kwon [address] [place] [phone] [email or web address] [facility] Community Health Worker 06/06/24 08/27/24 Cydney Kwon [address] [place] [phone] [email or web address] Community Health Worker 10/19/24 Abril Blevins [address] [place] [phone] [email or web address] [facility] Community Maxillofacial Prosthodontist 11/15/24 11/18/24 Abril Blevins [address] [place] [phone] [email or web address] Community Maxillofacial Prosthodontist 12/18/24 12/20/24 documented as of this encounter Additional Source Comments The information contained in this document represents components of the legal health record. It is not the complete legal health record.[facility]
--- OUTSIDE RECORDS SUMMARY | 2025-01-10 10:36 | XMS_ITS | Encounter Summary ---
Author Organization [facility] Address [address] [place] [address] Phone Care Team Providers Care Club Manager Name Role Phone Mari Barraza MD Primary Care Provider [phone] Lashonda Matute RN Unavailable Keisha Gibson MBBS Unavailable [phone] Cydney Kwon Unavailable [email or web address] Cydney Kwon Unavailable [email or web address] Abril Blevins Unavailable [email or web address] Abril Blevins Unavailable [email or web address] Reason for Referral * Outpatient Procedure - Closed Specialty Diagnoses / Procedures Referred By Kayce person Referred To Contact Radiology Diagnoses NOGUERA (nonalcoholic steatohepatitis) Abnormal LFTs Procedures US Abdomen Limited Massimo Huff MD [address] [place] [address] Phone: tel: fax: [email or web address] Referral ID Status Reason Start Date Expiration Date Visits Re quested Visits Authorized [id number] Closed 03/01/2024 03/01/2025 1 1 Encounter Details Date Type Department Care Team (Latest Contact Info) Description 03/01/2024 Transcribe Orders Virtual Department [address] [place] [address] Massimo Huff MD [address] [phone] [email or web address] NOGUERA (nonalcoholic steatohepatitis) (Primary Dx); Abnormal LFTs Social History Tobacco Use Types Packs/Day Years [...] Description 01/17/2025 11:00 AM EDT Office Visit [facility] Orthopedics & Sports Medicine [address] [place] [address] Libby Norris MD [address] [place] [address] [facility] [place] [address] documented as of this encounter Results * US LIVER WITH ELASTOGRAPHY (04/24/2024 8:12 AM EST) Anatomical Region Laterality Modality Abdomen Ultrasound 04/24/2024 4:54 PM EST Impressions 04/24/2024 5:02 PM EST Mildly heterogeneous echotexture to the liver which is difficult to penetrate implying element of hepatocellular disease. Importantly, there is no suspicious focal abnormality identified. No specific imaging findings to suggest cirrhosis (no surface irregularity, volume redistribution or adjacent ascites) and only mildly abnormal elastography values. Stiffness equal to or less than 1.3 m/s has high probability of normal and reading greater than 2.1 m/s has a high probability of being abnormal. The median shear wave speed is 1.55 m/s. Reading is 1.56 [employer] [facility] CONSENS[employer]: In the setting of elevated liver function tests, nonfasting, vascular congestion, etc., the stage of liver fibrosis may be overestimated. In some patients with NAFLD, the cut-off values for compensated advanced chronic liver disease may be lower. In causes other than viral hepatitis and NAFLD, the cut-off values are not well established. Narrative 04/24/2024 5:02 PM EST US LIVER WITH ELASTOGRAPHY Referring clinician's provided indication for this examination in Epic: Outside Radiology Order; noguera TECHNIQUE: Focused ultrasound evaluation of the liver with elastography. Volumetric sweeps were obtained and reviewed. COMPARISON: FINDINGS: LIVER: Liver is mildly heterogeneous and somewhat difficult to penetrate but is without discernible focal lesion, surface irregularity, volume redistribution or adjacent ascites. ELASTOGRAPHY: Stored images show sampling of liver stiffness at appropriate sites. 10 valid measurements were obtained. Median shear wave speed is: 1.56 m/s. Gallbladder: Surgically absent. Biliary: No intrahepatic biliary ductal dilatation. The common bile duct measures 5 mm. Procedure Note Giovani David MD - 04/24/2024 US LIVER WITH ELASTOGRAPHY Referring clinician's provided indication for this examination in Epic:Outside Radiology Order; noguera TECHNIQUE: Focused ultrasound evaluation of the liver with elastography. Volumetricsweeps were obtained and reviewed. COMPARISON: FINDINGS: LIVER: Liver is mildly heterogeneous and somewhat difficult to penetratebut is without discernible focal lesion, surface irregularity, volumeredistribution or adjacent ascites. ELASTOGRAPHY: Stored images show sampling of liver stiffness atappropriate sites. 10 valid measurements were obtained. Median shearwave speed is: 1.56 m/s. Gallbladder: Surgically absent. Biliary: No intrahepatic biliary ductal dilatation. The common bile duct measures 5 mm. IMPRESSION: Mildly heterogeneous echotexture to the liver which is difficult topenetrate implying element of hepatocellular disease. Importantly, thereis no suspicious focal abnormality identified. No specific imagingfindings to suggest cirrhosis (no surface irregularity, volumeredistribution or adjacent ascites) and only mildly abnormal elastographyvalues. Stiffness equal to or less than 1.3 m/s has high probability of normal andreading greater than 2.1 m/s has a high probability of being abnormal. The median shear wave speed is 1.55 m/s. Reading is 1.56 [employer] CONSENSUS: In the setting of elevated liver function tests, nonfasting, vascularcongestion, etc., the stage of liver fibrosis may be overestimated. Insome patients with NAFLD, the cut-off values for compensated advancedchronic liver disease may be lower. In causes other than viral hepatitisand NAFLD, the cut-off values are not well established. us Massimo Huff MD IMG US ABDOMEN Final Result documented in this encounter Visit Diagnoses Diagnosis NOGUERA (nonalcoholic steatohepatitis)- Primary Other chronic nonalcoholic liver disease Abnormal LFTs NOGUERA (nonalcoholic steatohepatitis) Other chronic nonalcoholic liver disease Abnormal LFTs documented in this encounter Additional Health Concerns Assessment Noted Time PHQ-9 Depression Total Score: 20 023 3:09 PM EDT PHQ-2 Depression Total Score: 5 07/29/19 23 3:09 PM EDT documented as of this encounter Care Teams Club Manager Relationship Specialty Start Date End Date Mari Barraza MD [email or web address] PCP - General Family Medicine 02/03/24 Lashonda Matute RN [address] [place] [address] [email or web address] [facility] Director Of Convention Services 03/01/24 Keisha Gibson MBBS [address] [place] [phone] [email or web address] Medical Oncology 05/29/24 Cydney Kwon [address] [place] [address] [email or web address] Community Health Worker 06/06/24 08/27/24 Cydney Kwon [address] [place] [address] [email or web address] Community Health Worker 10/19/24 Abril Blevins [address] [place] [phone] [email or web address] Community Department Secretary 11/15/24 11/18/24 Abril Blevins [address] [place] [phone] [email or web address] Secretary 12/18/24 12/20/24 documented as of this encounter Additional Source Comments The information contained in this document represents components of the legal health record. It is not the complete legal health record.[facility]
--- OUTSIDE RECORDS SUMMARY | 2025-01-10 10:36 | XMS_ITS | Encounter Summary ---
Author Organization [facility] Address [address] [place] [phone] Phone Care Team Providers Care Business Change Manager Name Role Phone Lashonda Matute RN Unavailable Yanna Cantu August Isa BLOCK TRIMMER Primary Care Pr ovider Eva Hermosillo Unavailable maria [email or web address] Mekhi Pagan Unavailable [email or web address] Natividad JaimeW Unavailable [email or web address] Eva Hermosillo Unavailable maria [email or web address] Shanta Mays [email or web address] Tiffanie Mesa Primary Care Provider Mekhi Pagan Unavailable [email or web address] Mari Barraza MD Primary Care Provider [phone] Lashonda Matute RN Unavailable Keisha Gibson MBSYD Unavailable [phone] Cydney Kwon Unavailable Cydney Kwon Unavailable Abril Blevins Unavailable eladio Abril Blevins Unavailable eladio Encounter Details Date Type Department Care Team (Latest Contact Info) Description 09/01/2022 Transcribe Orders [facility] Department [address] [place] [address] Janine Rubio PA-C [address] [place] [id number] [email or web address] Abnormal sputum (Primary Dx) Social History Tobacco Use Types Packs/Day Years Used Date Smoking Tobacco: Former Cigarettes Q uit: 08/14/2021 Smokeless Tobacco: Never Alcohol Use Standard Drinks/Week Comments Not Currently 0 (1 standard drink = 0.6 oz pur e alcohol) Pt had last drink on 07/03/22 Comments Unknown Sex and Gender Information Value Date Recorded Sex Assigned at Not on file Legal Sex Female 12:15 PM EST Gender Identity Not on file Sexual Orientation Not on file documented as of this encounter Plan of Treatment Upcoming Encounters Date Type Department Care Team (Late st Contact Info) Description 01/17/2025 11:00 AM EDT Office Visit [facility]ics & Sports Medicine [address] [place] [id number] Libby Norris MD [address] [place] [address] Orthopedics & Sports Medicine, [facility] [place] [address] documented as of this encounter Results * Pulmonary Function Test Reason for Exam: Other (specify) (ABNOMRAL SPUTUM); Type of PFT Test: Spirometry with bronchodilator, DLCO, Lung Volumes; Performing Location: [facility] (09/01/2022 4:33 PM EDT) FEV1 FVC FEV1/FVC TLC DLCO Anatomical Region Laterality Modality Other Impressions 09/01/2022 4:33 PM EDT PULMONARY FUNCTION STUDIES Full pulmonary function studies were performed on this 47 y.o. year-old female for evaluation of abnormal sputum. Review of the medical record reveals that the patient is a past smoker. Prior pulmonary function studies are not available for comparison. SPIROMETRY: The FEV1 is normal at 2.72 L or 96% predicted. The FVC is normal at 3.46 L or 98% predicted. The FEV1/FVC ratio is normal at 79%. After the administration of a bronchodilator agent, there is no significant change. FLOW-VOLUME LOOPS: Evaluation of the flow-volume loops reveals normal morphology of both the inspiratory and expiratory limbs with no significant difference when comparing the tracings performed pre- and post-bronchodilator. LUNG VOLUME MEASUREMENTS BY PLETHYSMOGRAPHY: The total lung capacity is normal at 5.46 L or 105% predicted. The functional residual capacity is normal at 2.34 L or 88% predicted. Of note, the ERV is markedly impaired, likely representing the imprint of body habitus. DIFFUSION CAPACITY: The diffusion capacity is normal at 22.7 mL/mmHg sec or 109% predicted. COMPARISON TO PRIOR STUDIES: none available. Resting oxygen saturation is 96% on room air. IMPRESSION: Completely normal pulmonary function tests. us Janine Rubio PA-C PFT ORDERABLES Final Result documented in this encounter Visit Diagnoses Diagnosis Abnormal sputum Abnormal sputum- Primary documented in this encounter Additional Health Concerns Infection Onset Date Last Indicated Resolved Time CDiff-Risk 10/06/2023 10/06/2023 10/13/2023 1:22 AM EDT Assessment Noted Time PHQ-9 Depression Total Score: 20 023 3:09 PM EDT PHQ-2 Depression Total Score: 5 07/29/19 23 3:09 PM EDT documented as of this encounter Care Teams Business Change Manager Relationship Specialty Start Date End Date Yanna Cantu, August HANNAH Moss [address] [place] [phone] [email or web address] PCP - General Nurse Practitioner 07/16/22 08/02/23 Tiffanei Mesa PA [address] [place] [phone] PCP - General Physician Library Services Dean 08/03/23 02/02/24 Mari Barraza MD [address] [place] [phone] [email or web address] PCP - General Family Medicine 02/03/24 Lashonda Matute, RN [address] [place] [phone] [email or web address] Chemical Laboratory Scientist 07/16/22 02/29/24 Eva Hermosillo [address] [place] [phone] [email or web address] Carpet Mechanic 09/13/22 09/19/22 Mekhi Pagan [address] [place] [phone] [email or web address] Community Health Worker 10/20/22 08/16/23 Natividad Jaime LCSW [address] [place] [phone] [email or web address] 12/10/22 12/20/22 Eva Hermosillo [address] [place] [phone] [email or web address] Carpet Mechanic 03/16/23 03/16/23 Shanta Mays [address] [place] [phone] @[email or web address] Community Health Worker 06/15/23 06/21/23 Ej Mekhi [address] [place] [phone] [email or web address] Community Health Worker 09/06/23 02/29/24 Lashonda Matute RN [address] [place] [phone] [email or web address] Chemical Laboratory Scientist 03/01/24 Keisha Gibson MBBS [address] [place] [address] [place] [phone] [email or web address] Medical Oncology 05/29/24 Cydney Kwon [address] [place] [phone] [email or web address] Community Health Worker 06/06/24 08/27/24 Cydney Kwon [address] [place] [phone] Community Health Worker 10/19/24 Abril Blevins [address] [place] [phone] [email or web address] [facility] Community Carpet Mechanic 11/15/24 11/18/24 Abril Blevins [address] [place] [phone] [email or web address] [facility] Community Carpet Mechanic 12/18/24 12/20/24 documented as of this encounter Additional Source Comments The information contained in this document represents components of the legal health record. It is not the complete legal health record.[facility]
--- OUTSIDE RECORDS SUMMARY | 2025-01-10 10:36 | XMS_ITS | Clinical Summary ---
Author Organization [facility] ity Address [address] [place] [address] Care Team Providers Care Computer Forensics Examiner Name Role Phone Unavailable Primary Care Provider Unavailabl e Social History Tobacco Use Types Packs/Day Years Used Date Smoking Tobacco: Never Assessed Comments Unknown Sex and Gender Information Value Date Recorded Sex Assigned at Not on file Legal Sex Female 7:46 PM EST Gender Identity Not on file Sexual Orientation Not on file Plan of Treatment Health Maintenance Due Date Last Done Comments Breast Cancer Screening 1975 DTaP,Tdap,and Td Vaccines (1 - Tdap) 1994 Hepatitis B Vaccines (1 of 3 - 19+ 3-dose series) 1994 Cervical Cancer Screening: P ap Smear 1996 Colorectal Cancer Screening: Colonoscopy 04/17/2022 HIV Screening 04/17/2022 Hepatitis C Screening 04/17/2022 Social Influencers of Health Screening 04/17/2022 COVID-19 Vaccine ( - 2023-2 5 season) 2024 Depression Screening 05/16/2024 Influenza Vaccine (#1) 2025 HIB Vaccines Aged Out No longer eligi ble based on patient's age to complete this topic HPV Vaccines Aged Out No longer eligi ble based on patient's age to complete this topic Hepatitis A Vaccines Aged Out No long er eligible based on patient's age to complete this topic IPV Vaccines Aged Out No longer eligi ble based on patient's age to complete this topic MMR Vaccines Aged Out No longer eligi ble based on patient's age to complete this topic Meningococcal ACWY Vaccine Aged Out N o longer eligible based on patient's age to complete this topic Meningococcal B Vaccine Aged Out No l onger eligible based on patient's age to complete this topic Pneumococcal Vaccine: Pediat rics (0 to 5 Years) and At-Risk Patients (6 to 49 Years) Aged Out No longer eligible b ased on patient's age to complete this topic RSV Immunization Patients Un [place] 20 months Aged Out No longer eligible b ased on patient's age to complete this topic Varicella Vaccines Aged Out No longer eligible based on patient's age to complete this topic
--- OUTSIDE RECORDS SUMMARY | 2025-01-10 10:36 | XMS_ITS ---
Author Name [facility] Organization Unknown Encounters Encounter Type Encounter Reason Primary Diagnosis Location Date Ambulatory [facility] 12/20/2024 Care Team Organization Name Specialty Phone Email Start Date End Da te [facility] 12/23
--- OUTSIDE RECORDS SUMMARY | 2025-01-10 10:36 | XMS_ITS | Clinical Summary ---
Author Organization [facility] Address [address] [place] [address] Care Team Providers Care Seo Consultant Name Role Phone Unavailable Primary Care Provider Unavailabl e Social History Tobacco Use Types Packs/Day Years Used Date Smoking Tobacco: Never Assessed Comments Unknown Sex and Gender Information Value Date Recorded Sex Assigned at Not on file Legal Sex Female 9:53 AM EDT Gender Identity Not on file Sexual Orientation Not on file Plan of Treatment Health Maintenance Due Date Last Done Comments Colorectal Cancer: COLONOSCO PY Screening every 10 yrs (or Modifier) 1975 Depression: Screening Annual ly using PHQ-2/9 in Adults 18 yrs or above (or HM Modifier)([facility]) 1993 Hepatitis C Virus Infection in Adolescents and Adults: Screening (or Modifier) ([facility]) 1993 [facility] Screening Reminder: Lisa bernstein for all adults ([facility]) 1993 Tobacco Smoking Cessation: i n Adults excluding Women: Behavioral and Pharmacotherapy Interventions ([facility]) 1993 DTaP/Tdap/Td Vaccines ([facility]) (1 - Tdap) 1994 Cervical Cancer Screenin 1-65 yrs of age (or Modifier) 1996 Cervical Cancer Screening: P ap every 3 yrs pts age 21-65 1996 Cervical Cancer: Pap Screeni ng with Modifier timing ([facility]) 1996 Cervical Cancer: hrHPV alone or with cotesting Pap for Pts 30-65yrs screening every 5yrs ([facility]) 1996 Colorectal Cancer Screening 45 -75 Yrs (or HM Modifier) 2020 Colorectal Cancer: FLEXIBLE SIGMOIDOSCOPY Screening every 5 yrs 2020 Colorectal Cancer: Fecal Immunochemical Test (FIT) Annually [facility] 2020 Colorectal Cancer: High-sens itivity gFOBT Screening Annually [facility] 2020 Colorectal Cancer: Stool Col oguard Screening every 3 yrs 2020 Colorectal Cancer:CT Colonog leela Screening every 5 yrs 2020 COVID-19 Vaccine Screening: Initial Series and Booster Status ([facility]) ( - 2023- season) 2024 Flu Vaccination: Yearly for ages 18mos through 64 years (or Modifier)([facility]) 12/14/2024 Zoster/Shingles Vaccine Seri es Screening: Adults aged 18+ yrs (or HM Modifiers)([facility]) (1 of 2) 2025 Pneumococcal Vaccination Scr eening: Pts 0-19 & 19-49 yrs of age ([facility]) Aged Out No longer eligible based on patient's age to complete this topic Medical Devices Not on file
--- OUTSIDE RECORDS SUMMARY | 2025-01-10 10:36 | XMS_ITS | Encounter Summary ---
Author Organization [facility] Address [address] [place] [phone] Phone Care Team Providers Care Environmental Health Technologist Name Role Phone Lashonda Matute RN Unavailable Tiffanie Mesa Primary Care Provider Mekhi Pagan Unavailable [email or web address] Barraza MD Primary Care Provider [phone] Lashonda Matute RN Unavailable Keisha Gibson MB Unavailable [phone] Cydney Kwon Unavailable [email or web address] Cydney Kwon Unavailable Abril Blevins Unavailable eladio Abril Blevins Unavailable [email or web address] Reason for Referral * Molecular Pathology - Closed Specialty Diagnoses / Procedures Referred By Kayce person Referred To Contact Diagnoses Need for hepatitis C screening test Fatty liver Elevated LFTs Loose stools Procedures Hemochromatosis Gene Analysis Crissy Katz PA-C Phone: tel: fax: [email or web address] Referral ID Status Reason Start Date Expiration Date Visits Re quested Visits Authorized [id number] Closed 10/06/2023 10/05/2024 1 1 Encounter Details Date Type Department Care Team (Latest Contact Info) Description 10/06/2023 Transcribe Orders [facility] Laboratory [address] [address] Crissy Katz PA-C [address] [place] [address] [email or web address] Need for hepatitis C screening test (Primary Dx); Fatty liver; Elevated LFTs; Loose stools Social History Tobacco Use Types Packs/Day Years [...] Description 01/17/2025 11:00 AM EDT Office Visit [facility] [address] [place] [address] [phone] Libby Norris MD [address] [place] [address] [facility] [place] [address] [email or web address] documented as of this encounter Results * Ferritin (10/06/2023 3:59 PM EDT) FERRITIN 123 13 - 150 ug/L [facility] Blood 10/06/2023 3:59 PM EDT 10/06/2023 4:06 PM EDT us Crissy Katz PA-C LAB BLOOD ORDERABLES Final Resu lt Performing Organization Address City/[facility]/ZIP Co de Phone Number [address] [address] * TSH (10/06/2023 3:59 PM EDT) TSH 2.63 0.27 - 4.20 uIU/mL [facility] Blood 10/06/2023 3:59 PM EDT 10/06/2023 4:06 PM EDT us Crissy Katz PA-C LAB BLOOD ORDERABLES Final Resu lt Performing Organization Address [facility]/ZIP Co de Phone Number [address] [address] * Iron and iron binding capacity (10/06/2023 3:59 PM EDT) IRON 133 30 - 160 ug/dL [facility] IRON BINDING CAPACITY 401 228 - 428 ug/dL [facility] TRANSFERRIN SATURAT. 33 15 - 50 % [facility] Blood 10/06/2023 3:59 PM EDT 10/06/2023 4:06 PM EDT Crissy Katz PA-C LAB BLOOD ORDERABLES Final Resu lt Performing Organization Address City/[facility]/ZIP Co de Phone Number [address] [address] * Lipase (10/06/2023 3:59 PM EDT) LIPASE 29 16 - 63 U/L [facility] Blood 10/06/2023 3:59 PM EDT 10/06/2023 4:06 PM EDT us Crissy Katz PA-C LAB BLOOD ORDERABLES Final Resu lt [address] [address] * Hemochromatosis Gene Analysis (10/06/2023 3:59 PM EDT) [facility] HFE Gene analysis SEE NOTE 07:20 PM [facility] DPT OF LAB MED AND PAT+ Comment: (NOTE) Test Result Flag Unit RefValue Hereditary Hemochromatosis HFE Test Result Summary NEGATIVE Result SEE NOTE C282Y: Not detected. H63D: Not detected. Interpretation SEE NOTE This result reduces the risk but does not rule out either a diagnosis of or predisposition for hereditary hemochromatosis (HH). This assay does not rule out the presence of other disease-causing variants in the HFE gene or in other genes associated with hemochromatosis. Non-HFE-HH causes should also be considered. These results should be interpreted in the context of clinical findings, family history, and other laboratory testing (e.g. serum transferrin-iron saturation and serum ferritin). Genetic testing and other laboratory testing of an affected family member can determine if this result is of predictive value for this individual. A genetic consultation may be of benefit. ADDITIONAL INFORMATION An online research opportunity called [email or web address] (UBmatrix), a project of [employer], is available for the recipient of this genetic test. This patient registry collects de-identified genetic and health information to advance the knowledge of genetic variants. [facility] is a collaborator of [employer]. This may not be applicable for all tests. Test results should be interpreted in the context of clinical findings, family history, and other laboratory data. Misinterpretation of results may occur if the information provided is inaccurate or incomplete. Rare polymorphisms exist that could lead to false-negative or false-positive results. If results obtained do not match the clinical findings, additional testing should be considered. Bone Marrow transplants from allogenic donors will interfere with testing. Call [facility] for instructions for testing patients who have received a bone marrow transplant. One or more in silico tools were used to assist in the interpretation of these results. These tools are updated regularly and predictions for a given variant may change. Additionally, the predictability of these tools for the determination of pathogenicity is currently unvalidated. This test was developed and its performance characteristics determined by [facility] in a manner consistent with CLIA requirements. This test has not been cleared or approved by the U.S. Food and Drug Administration. Specimen WB Whole Blood Method SEE NOTE Droplet Digital Polymerase Chain Reaction (ddPCR) was used to test for the following three variants in the HFE gene; C282Y, H63D, and S65C. Because of the minimal effect on iron metabolism associated with the S65C variant, it is only reported when it is found with the C282Y variant (i.e. if the patient has the C282Y/S65C genotype). Released By SEE NOTE Jerardo Quigley MD A portion of the testing process was performed at [facility] site #[id number]. Blood 10/06/2023 3:59 PM EDT 10/06/2023 4:05 PM EDT us Crissy Katz PA-C LAB BLOOD ORDERABLES Final Resu lt [facility] DPT OF LAB MED AND PAT+ [address] [place] [address] * Hepatitis B surface antigen (10/06/2023 3:59 PM EDT) HBV SURFACE ANTIGEN NON-REACTI VE NON-REACTI VE [facility] Blood 10/06/2023 3:59 PM EDT 10/06/2023 4:06 PM EDT Crisys Katz PA-C LAB BLOOD ORDERABLES Final Resu lt Performing Organization Address City/[facility]/ZIP Co de Phone Number [address] [address] * Hepatitis C antibody, qualitative (10/06/2023 3:59 PM EDT) HCV NON-REACTIV E NON-REACTI VE [facility] Blood 10/06/2023 3:59 PM EDT 10/06/2023 4:06 PM EDT Crissy Katz PA-C LAB BLOOD ORDERABLES Final Resu lt Performing Organization Address [facility] Co de Phone Number [address] [address] * Ceruloplasmin (10/06/2023 3:59 PM EDT) CERULOPLASMIN 34 20 - 60 mg/dL [facility] Blood 10/06/2023 3:59 PM EDT 10/06/2023 4:05 PM EDT Crissy Katz PA-C LAB BLOOD ORDERABLES Final Resu lt Performing Organization Address City/[facility]/ZIP Co de Phone Number [address] [address] * (ABNORMAL) Comprehensive metabolic panel (10/06/2023 3:59 PM EDT) SODIUM 140 133 - 146 mmol/L [facility] POTASSIUM 3.9 3.3 - 5.1 mmol/L [facility] CHLORIDE 102 96 - 108 mmol/L [facility] CO2 25 21 - 35 mmol/L [facility] BUN 17 6 - 19 mg/dL [facility] CREATININE 0.90 0.5 - 1.5 mg/dL [facility] GLUCOSE 92 70 - 99 mg/dL [facility] ALBUMIN 4.2 3.9 - 4.8 g/dL [facility] TOTAL PROTEIN 8.0 6.5 - 8.0 g/dL [facility] CALCIUM 9.4 8.4 - 10.3 mg/dL [facility] ALKALINE PHOSPHATASE 87 39 - 117 U/L [facility] TOTAL BILIRUBIN 0.6 0.0 - 1.2 mg/dL [facility] AST 80(H) 0 - 37 U/L [facility] ALT 53(H) 0 - 40 U/L [facility] GLOBULIN 3.8 1 - 4.8 g/dL [facility] EGFR 79 >59 mL/min/1.7 3m2 [facility] Comment:Estimated glomerular filtration rate calculated using the CKD-EPI refit equation. ANION GAP 17 10 - 20 mmol/L [facility] Blood 10/06/2023 3:59 PM EDT 10/06/2023 4:06 PM EDT Crissy Katz PA-C LAB BLOOD ORDERABLES Final Resu lt Performing Organization Address City/State/[facility] Co de Phone Number [address] [address] * (ABNORMAL) CBC (10/06/2023 3:59 PM EDT) WBC 5.85 4.00 - 11.00 K/uL [facility] RBC 4.63 3.72 - 5.30 M/uL [facility] HGB 15.2 10.6 - 15.5 g/dL [facility] HCT 46.3(H) 32.0 - 45.0 % [facility] PLT 259 140 - 430 K/uL [facility] MCV 100.0(H) 78.0 - 97.0 fL [facility] MCH 32.8 25.0 - 33.0 pg [facility] MCHC 32.8 32.0 - 36.0 g/dL [facility] RDW 12.9 11.0 - 16.0 % [facility] MPV 9.9 8.4 - 12.8 fl [facility] Blood 10/06/2023 3:59 PM EDT 10/06/2023 4:06 PM EDT us Crissy Katz PA-C LAB BLOOD ORDERABLES Final Resu lt [facility] [address] [place] [address] * (ABNORMAL) Monoclonal protein study, serum (10/06/2023 3:59 PM EDT) M-protein GK Test component not applicable or not reported. g/dL [facility] LAB MED/[address] M-protein GL Test component not applicable or not reported. g/dL [facility]/[address] M-protein AK Test component not applicable or not reported. g/dL [facility] DR M-protein AL Test component not applicable or not reported. g/dL [facility] DR M-protein MK Test component not applicable or not reported. g/dL [facility] DR M-protein ML Test component not applicable or not reported. g/dL [facility]/[address] Glycosylation Test component not applicable or not reported. [facility] Flag, M-protein Isotype Negative Negative [facility] QMPTS Interpretation No monoclonal protein detected. [facility] Comment: (NOTE) ADDITIONAL INFORMATION The submitted sample was assayed by five separate immunopurifications for IgG, IgA, IgM, kappa and lambda. The result reflects the findings of either no monoclonal protein detected or those monoclonal immunoglobulins that were detected. This test was developed and its performance characteristics determined by [facility] in a manner consistent with CLIA requirements. This test has not been cleared or approved by the U.S. Food and Drug Administration. IgA 474(H) 61 - 356 mg/dL [facility] IgM 198 37 - 286 mg/dL [facility] IgG 1,590 767 - 1,590 mg/dL [facility] Therapeutic Antibody Administered? Unknown [facility] Blood 10/06/2023 3:59 PM EDT 10/06/2023 4:05 PM EDT Crissy Katz PA-C LAB BLOOD ORDERABLES Final Resu lt Performing Organization Address City/[facility]/ZIP Co de Phone Number [facility] LAB MED/[address] [place] [address] * (ABNORMAL) Immunoglobulin A (10/06/2023 3:59 PM EDT) IgA 443(H) 70 - 400 mg/dL [facility] Blood 10/06/2023 3:59 PM EDT 10/06/2023 4:06 PM EDT Crissy Katz PA-C LAB BLOOD ORDERABLES Final Resu lt Performing Organization Address [facility] Co de Phone Number [address] [address] * Tissue transglutaminase IgA (10/06/2023 3:59 PM EDT) TTG IGA ANTIBODY <1.2 <4.0 (Negative) U/mL [facility] LAB [facility]/[address] Blood 10/06/2023 3:59 PM EDT 10/06/2023 4:05 PM EDT Crissy Katz PA-C LAB BLOOD ORDERABLES Final Resu lt Performing Organization Address City/[facility]/ZIP Co de Phone Number [facility] LAB MED/[address] [place] [address] * Smooth Muscle Antibody (10/06/2023 3:59 PM EDT) SMOOTH MUSCLE AB POSITIVE AT 1:40 [facility] Comment: Kain Reece M.D., Director Clinical Immunology Laboratory [id number] Normal: Negative at 1:20 Blood 10/06/2023 3:59 PM EDT 10/06/2023 4:05 PM EDT Crissy Katz PA-C LAB BLOOD ORDERABLES Final Resu lt Performing Organization Address [facility] Co de Phone Number [address] [address] * Antinuclear antibody (CHELLY) (10/06/2023 3:59 PM EDT) CHELLY SCREEN ON HEP 2 Negative Negative [facility] Blood 10/06/2023 3:59 PM EDT 10/06/2023 4:06 PM EDT Crissy Katz PA-C LAB BLOOD ORDERABLES Final Resu lt Performing Organization Address [facility] Co de Phone Number [address] [address] * Anti-Mitochondrial Antibody (AMA) (10/06/2023 3:59 PM EDT) MITOCHONDRIAL AB NEGATIVE AT 1:20 [facility] Comment: Kain Reece M.D., Director Clinical Immunology Laboratory [id number] Normal: Negative at 1:20 Blood 10/06/2023 3:59 PM EDT 10/06/2023 4:05 PM EDT Crissy Katz PA-C LAB BLOOD ORDERABLES Final Resu lt Performing Organization Address [facility] Co de Phone Number [address] [address] * Nxwil-8-dtnkgncsosu phenotyping (10/06/2023 3:59 PM EDT) ALPHA 1 ANTITRYPSIN 162 100 - 190 mg/dL [facility] Comment: (NOTE) ADDITIONAL INFORMATION Method: Nephelometry A1A PHENOTYPE MODERATELY SUSCEPTIBLE bands [facility] Comment: (NOTE) Heterozygous for M and S isoforms. This phenotype is usually associated with normal ovrdp-4-nbsrxbzypjk concentrations. ADDITIONAL INFORMATION Method: Isoelectric Focusing, This assay identifies the phenotype of the circulating dgank-2-eqydiymxrmy (A1A) protein. If the patient is on replacement therapy or has been recently transfused, the phenotype will detect patient and replacement or transfused plasma A1A protein. This test also cannot detect a null allele which could be responsible for an A1A deficiency. Blood 10/06/2023 3:59 PM EDT 10/06/2023 4:05 PM EDT us Crissy Katz PA-C LAB BLOOD ORDERABLES Final Resu lt [facility] [place] [address] documented in this encounter Visit Diagnoses Diagnosis Need for hepatitis C screening test- Primary Special screening examination for other specified viral diseases Fatty liver Other chronic nonalcoholic liver disease Elevated LFTs Other abnormal blood chemistry Loose stools Abnormal feces documented in this encounter Additional Health Concerns Infection Onset Date Last Indicated Resolved Time CDiff-Risk 10/06/2023 10/06/2023 10/13/2023 1:22 AM EDT Assessment Noted Time PHQ-9 Depression Total Score: 20 023 3:09 PM EDT PHQ-2 Depression Total Score: 5 07/29/19 23 3:09 PM EDT documented as of this encounter Care Teams Environmental Health Technologist Relationship Specialty Start Date End Date [place] [address] PCP - General Physician Log Haul Operator 08/03/23 02/02/24 [place] [address] [email or web address] PCP - General Family Medicine 02/03/24 Lashonda Matute, RN [address] [place] [address] [email or web address] Public 07/16/22 02/29/24 Mekhi Pagan [address] [place] [address] [email or web address] 09/06/23 02/29/24 Lashonda Matute, RN [address] [place] [phone] [email or web address] Notary Public 03/01/24 Keisha Gibson MBBS [address] [place] [address] [place] [phone] [email or web address] Medical Oncology 05/29/24 Cydney Kwon [address] [place] [address] [email or web address] Community Health Worker 06/06/24 08/27/24 Cydney Kwon [address] [place] [phone] [email or web address] Community Health Worker 10/19/24 Abril Blevins [address] [place] [phone] [email or web address] Community Finishing Range Feeder 11/15/24 11/18/24 Abril Blevins [address] [place] [phone] [email or web address] Community Finishing Range Feeder 12/18/24 12/20/24 documented as of this encounter Additional Source Comments The information contained in this document represents components of the legal health record. It is not the complete legal health record.[facility]
--- OUTSIDE RECORDS SUMMARY | 2025-01-10 10:36 | XMS_ITS | Clinical Summary ---
Author Organization [facility] Address [address] [place] [address] Phone Care Team Providers Care Senior Materials Planner Name Role Phone Mari Barraza MD Primary Care Provider [phone] Lashonda Matute RN Unavailable Keisha Gibson MBBS Unavailable [phone] Cydney Kwon Unavailable [email or web address] Allergies No known active allergies Medications pantoprazole (PROTONIX) 40 MG tablet Take 40 mg by mouth daily. 12/30/2022 Active aspirin 81 MG EC tablet Take 1 tablet (81 mg total) by mouth daily. 06/06/2024 Active Hospital, Clinic, or Other Facility Administered Medication Ordered Dose Route Frequency Start Date End Date Status lidocaine (XYLOCAINE) 1% injection 2 mLIndications:Primar y osteoarthritis of both knees 2 mL See Adm Inst See admin instructions 02/03/2024 Active triamcinolone acetonide (KENALOG-40) 40 mg/mL injection 40 mgIndications:Primar y osteoarthritis of both knees 40 mg IM See admin instructions 02/03/2024 Active lidocaine (XYLOCAINE) 1% injection 2 mLIndications:Primar y osteoarthritis of both knees 2 mL See Adm Inst See admin instructions 02/03/2024 Active triamcinolone acetonide (KENALOG-40) 40 mg/mL injection 40 mgIndications:Primar y osteoarthritis of both knees 40 mg IM See admin instructions 02/03/2024 Active Active Problems Patient Care Coordination No te Formatting of this note migh t be different from the original. Patient is high risk for these reasons: recent history of homelessness, chronic pain, history of alcohol abuse, severe obesity, multiple psychosocial stressors, anxiety, depression Living Situation: currently living in long-term respite through [facility], looking for permanent housing solution Functional Status (ADL's/iADLs): limited mobility (cannot stand for more than 15-20 minutes and must lie on side most of day for relief) due to severe back pain and left knee pain. Pt reports struggling in/out of current apartment due to large steps at entrance. Also requires assistance for most iADL's, with father and sisters providing current support. Pt uses cane daily on right side and sometimes a FWW. Family/Social Supports: father and sisters are main supports; pt also has some support in boyfriend Goals of Care (HCP/Molst): none on file; pt intends to complete Community Supports (e.g. 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 Unable to drive more than a short distance due to high anxiety. Medication Management System/Specialized Pharmacy Needs: pt keeps meds in individual bottles and admits to being very disorganized. Pt plans to get a pill box. Uses local pharmacy. Financial Concerns: pt has no income of significance. Currently receiving [employer] and SNAP, pt has applied for disability benefits. 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 History of pulmonary embolism, secondary in the setting of COVID infection ? Myeloproliferative neoplasm DISCUSSION: I discussed overall impression and further management in this regard. Neurology has recommended hypercoagulable screen. She also has a history of provoked PE. There is also concern for an underlying myeloproliferative neoplasm. Patient will undergo appropriate laboratory evaluation in this regard. RECOMMENDATIONS: Hypercoagulable screen. Serum erythropoietin and JAK2 mutation analysis CBCD and chemistry panel Patient was advised to go to the lab. Follow-up in 2 to 3 weeks Thank you very much for allowing to participate in this patient's care Encounters Date Type Department Care Team Description 01/07/2025 Patient Outreach [facility] [address] [place] [address] [phone] Lashonda Matute, RN iCMP Care Plan Update (iCMP Plan of Care Update); Care Coordination (iCMP Care Coordination) 01/07/2025 Patient Outreach [facility] [address] [place] [address] [phone] [facility] 01/02/2025 Patient Outreach [facility] [address] [place] [address] [phone] Cydney Kwon Care Coordination 12/20/2024 Patient Outreach [facility] [address] [place] [address] [phone] Lashonda Matute, RN Care Coordination (iCMP Care Coordination) 12/19/2024 Patient Outreach [facility] [address] [place] [address] [phone] Eduardo Betancourt [facility] ([facility] Referral) 12/13/2024 Patient Outreach [facility] [address] [place] [address] 11371 Lashonda Matute, SCARLET iCMP Care Plan Update (iCMP Plan of Care Update); Care Coordination (iCMP Care Coordination) 12/12/2024 Patient Outreach [facility] [address] [place] [address] [phone] Cydney Kwon Care Coordination 12/03/2024 Patient Outreach [facility] [address] [place] [address] [phone] Lashonda Matute, RN iCMP Care Plan Update (iCMP Plan of Care Update) 11/27/2024 Patient Outreach [facility] [address] [place] [address] [phone] Cydney Kwon Care Jacky 11/19/2024 Patient Outreach [facility] [address] [place] [address] [phone] Cydney Kwon Care Coordination 11/19/2024 Patient Outreach [facility] [address] [place] [address] [phone] Lashonda Matute, SCARLET Care Coordination (iCMP Care Coordination); iCMP Care Plan Update (iCMP Plan of Care Update) 11/15/2024 Patient Outreach [facility] [address] [place] [address] [phone] Lashonda Matute RN iCMP Care Plan Update (iCMP Plan of Care Update) 11/09/2024 Patient Outreach [facility] [address] [place] [address] [phone] Cydney Kwon Care Coordination 11/08/2024 Patient Outreach [facility] [address] [place] [address] [phone] Lashonda Matute, SCARLET Care Coordination (iCMP Care Coordination) 10/31/2024 Patient Outreach [facility] [address] [place] [address] [phone] Lashonda Matute, SCARLET Care Coordination (iCMP Care Coordination) 10/26/2024 Patient Outreach [facility] [address] [place] [address] [phone] Cydney Kwon Care Coordination 10/26/2024 Patient Outreach [facility] [address] [place] [address] [phone] Lashonda Matute, SCARLET iCMP Care Plan Update (iCMP Plan of Care Update) 10/19/2024 Patient Outreach [facility] [address] [place] [address] [phone] Cydney Kwon Care Coordination 10/19/2024 Patient Outreach [facility] [address] [place] [address] [phone] Lashonda Matute, SCARLET iCMP Care Plan Update (iCM Plan of Care Update) from Last 3 Months Immunizations Immunization Administration Dates Next Due INFLUENZA, SPLIT VIRUS, TRIVALENT W/ PRESERVATIV E IM 02/17/2010 Influenza, whole 03/24/2009,03/12/2008 Td, unspecified formulation 03/12/2008 Tdap 01/31/2023 Social History Tobacco Use Types Packs/Day Years [...] on file Sexual Orientation Not on file Last Filed Vital Signs Vital Sign Reading Time Taken Comments Blood Pressure 135/81 08/03/2023 1:32 PM EDT Pulse 88 08/03/2023 1:32 PM EDT Temperature 36.7 C (98.1 F) 08/03/2023 1:16 PM EDT Respiratory Rate 16 08/03/2023 1:32 PM EDT Oxygen Saturation 95% 08/03/2023 1:32 PM EDT Inhaled Oxygen Concentration - - Weight 141.1 kg (311 lb) 05/20/2023 3:13 PM EST Height 160 cm (5' 3 ) 05/20/2023 3:13 PM EST Body Mass Index 55.09 05/20/2023 3:13 PM EST Plan of Treatment Upcoming Encounters Date Type Department Care Team (Late st Contact Info) Description 01/17/2025 11:00 AM EDT Office Visit [facility] [address] [place] [address] [phone] Libby Norris MD [address] [place] [address] Orthopedics & Sports Medicine, [facility] [place] [address] [email or web address] Health Maintenance Due Date Last Done Comments SMOKING Hx and SMOKELESS TOBACCO SCREENING 1988 HIV ONE-TIME SCREENING (18-65 YEARS) 1993 HEPATITIS A VACCINES (1 of 2 - Risk 2-dose series) 1994 PNEUMOCOCCAL VACCINES (0-49 years) (1 of 2 - PCV) 1994 MAMMOGRAM 2015 COLOGUARD 2020 FIT TEST 2020 FOBT 2020 SIGMOIDOSCOPY 2020 VIRTUAL COLONOSCOPY 2020 DEPRESSION SCREENING 07/29/2023 07/28/2022, 07/29/19 COVID-19 VACCINE ( season) 2024 INFLUENZA VACCINE (#1) 2024 0, 03/24/2009, 03/12/2008 PAP SMEAR 05/20/2026 05/20/2023 SCREENING FOR DIABETES 10/23/2026 10/24/2023, 2023 LIPID PANEL 12/13/2028 12/14/2023, 08/15, 09/06/2022, Additional history exists Adult Td,Tdap Booster 01/31/2033 01/31/2023, 008 COLONOSCOPY 08/02/2033 08/03/2023 COLORECTAL CANCER SCREENING 08/02/2033 HEPATITIS C SCREENING Completed 10/06/2023 HIB VACCINES Aged Out No longer eligi ble based on patient's age to complete this topic MENINGOCOCCAL VACCINES (ACWY) Aged Out No longer eligible based on patient's age to complete this topic MENINGOCOCCAL VACCINES (B) Aged Out N o longer eligible based on patient's age to complete this topic Medical Devices Not on file Procedures Procedure Name Priority Date/Time Associated Diagnosis Comments HEPATITIS C ANTIBODY, QUALITATIVE Routine 10/06/2023 3:59 PM EDT Need for hepatitis C screening test ENDOSCOPY, COLON 08/03/2023 12:2 6 PM EDT PAP TEST Routine 05/20/2023 12:00 AM EST from Last 3 Months or Most Recently Relevant to Health Maintenance Results * Hepatitis C antibody, qualitative (10/06/2023 3:59 PM EDT) HCV NON-REACTIV E NON-REACTI VE [facility] Blood 10/06/2023 3:59 PM EDT 10/06/2023 4:06 PM EDT Crissy Katz PA-C LAB BLOOD ORDERABLES Final Resu lt [facility] [address] [place] [address] * ENDOSCOPY, COLON (08/03/2023 12:26 PM EDT) Narrative Transcriptions Cosme Huff MD - 08/03/2023 12:26 PM EDT [facility] Patient Name: Sri Clayton Attending MD:: COSEM HUFF MD, Procedure Date: 08/03/2023 12:26 PM Date of : 1975 Age: 48 Admit Type: Outpatient Gender: Female Room: [facility] Referring MD: Tiffanie Lala Exam Type: Colonoscopy Indications: Screening for colorectal malignant neoplasm, Thisis the patient's first colonoscopy, Hematochezia Medications: See EGD report Procedure: Informed consent was obtained from the patientafter discussion of the indications, limitations, alternatives, benefits, and risks of the procedure. Risks specifically discussed include but are not limited to medication reactions, missed lesions, bleeding, perforation, or the need for emergent surgery. Throughout the procedure, the patient's blood pressure, pulse, end-tidal CO2, and oxygensaturations were monitored continuously. The Olympus adult variable colonoscope [id number] #1 was introduced through the anus and advanced to the terminal ileum, with identification of theappendiceal orifice and IC valve. The colonoscopy was performed without difficulty. The patient tolerated the procedure well. The quality of the bowelpreparation was good. The terminal ileum, ileocecal valve, appendiceal orifice, and rectum werephotographed. Complications: No immediate complications. Estimated blood loss:None. Findings: The terminal ileum appeared normal. Examination of the right colon was repeated in retroflexion and again in NBI. Retroflexion wasalso performed in the rectum. A 3 mm polyp was found in the cecum. The polyp was sessile. The polyp was removed with a cold snare. Resection and retrieval were complete. A 10 mm polyp was found in the cecum. The polyp was sessile. The polyp was removed with a cold snare. Resection and retrieval were complete. A 7 mm polyp was found in the descending colon. The polyp was sessile. The polyp was removed with acold snare. Resection and retrieval were complete. Internal hemorrhoids were found duringretroflexion. The hemorrhoids were mild. The exam was otherwise without abnormality. Impression: - The examined portion of the ileum was normal. - One 3 mm polyp in the cecum, removed with a cold snare. Resected and retrieved. - One 10 mm polyp in the cecum, removed with a cold snare. Resected and retrieved. - One 7 mm polyp in the descending colon, removedwith a cold snare. Resected and retrieved. - Internal hemorrhoids. - The examination was otherwise normal. Recommendation: - Patient has a contact number available for emergencies. The signs and symptoms of potential delayed complications were discussed with thepatient. Return to normal activities tomorrow. Written discharge instructions were provided to thepatient. - Await pathology results. - Repeat colonoscopy in 3 years for surveillance. - Consider in-office hemorrhoid banding therapy, if needed. Cosme Huff COSME HUFF MD 08/03/2023 1:13:42 PM This report has been signed electronically. Number of Addenda: 0 Note Initiated On: 08/03/2023 12:26 PM Procedure Code(s): --- Professional --- 16934, Colonoscopy, flexible; with removal of tumor(s), polyp(s), or other lesion(s) by snare technique --- Technical --- 55027, Colonoscopy, flexible; with removal of tumor(s), polyp(s), or other lesion(s) by snare technique CPT copyright 2021 [employer]. All rights reserved. The codes documented in this report are preliminary and upon manual qa tester reviewmay be revised to meet current compliance requirements. Procedure Date: 08/03/2023 12:26:[address] [place] [address] Tiffanie MONTERROSO GI PROCEDURE O RDERABLES Final Result * Pap Test (05/20/2023 12:00 AM EST) 05/20/2023 05/23/2023 9:4 5 AM EST Narrative SEE NARRATIVE - 05/25/2023 4:25 PM EST [address] [address] Nuclear Physicist: Anastasiya Montelongo MD MANAGER SOLUTION Cytology Report FINAL DIAGNOSIS A. PAP SMEAR (SUREPATH) CE: SPECIMEN ADEQUACY: Satisfactory for evaluation; transformation zone absent/insufficient. INTERPRETATION: NEGATIVE FOR INTRAEPITHELIAL LESION OR MALIGNANCY. Electronically Signed Out By: SARAHI Everett(ASCP) The Pap test is a screening test primarily for squamous cancers and precursors and has associated false-negative and false-positive results. New technologies such as liquid-based preparations may decrease but will not eliminate all false-negative results. Regular sampling and follow-up of unexplained clinical signs and symptoms are recommended to minimize false negative results. PROCEDURES/ADDENDA HPV Testing (Requested) Ordered Date: 05/23/2023 A. PAP SMEAR (SUREPATH) CE: Human Papilloma Virus Test NEGATIVE for high-risk Human Papilloma Virus types 16, 18, 45 and the Other high risk probe set (Includes 31, 33, 35, 39, 51, 52, 56, 58, 59, 66, 68) Note: Testing performed by Jack Robie Onclarity HR-HPV analysis. Clinical correlation is advised. This HPV test was performed at [facility], [address] [place] [address]. This test has been FDA approved for SurePath cervical cytology specimens. The accuracy and precision of this test for all other specimen sources has been verified in the Cytopathology Laboratory of the [facility] and has not been cleared or approved by the U.S. Food and Drug Administration. Clinical correlation is advised. CLINICAL HISTORY Date of Last Menstrual Period: 05-20-2023 Menstrual History: Jessie-Menopausal Other Clinical Conditions: Screening Pap SPECIMEN SOURCE A: PAP SMEAR (SUREPATH) CE Patient Name: CLAYTONSHARON FLORIANN : 1975 (Age: 48) Sex: F Institution: [facility] Location: [facility] Date of Collection: 05/20/2023 Date of Reported: 05/25/2023 16:25 Results to: Bridgette Kim CNM Bridgette Kim CNM CYTOLOGY ORDERABLES Final Result SEE NARRATIVE from Last 3 Months or Most Recently Relevant to Health Maintenance Insurance [facility] Care Teams Senior Materials Planner Relationship Specialty Start Date End Date Mari Barraza MD [email or web address] PCP - General Family Medicine 02/03/24 Lashonda Matute, SCARLET [address] [place] [phone] iCMP Industrial Gas Fitter Helper 03/01/24 Keisha Gibson MBBS [address] [place] [phone] [email or web address] 05/29/24 Cydney Kwon [address] [place] [phone] [email or web address] Community Health Worker 10/19/24 Additional Source Comments The information contained in this document represents components of the legal health record. It is not the complete legal health record.[facility]
--- OUTSIDE RECORDS SUMMARY | 2025-01-10 10:36 | XMS_ITS | Encounter Summary ---
Author Organization [facility] Address [address] [place] [address] Phone Care Team Providers Care M48/M60 Tank Driver Name Role Phone Mari Barraza MD Primary Care Provider Lashonda Matute RN Unavailable Keisha Gibson MBSYD Unavailable Cydney Kwon Unavailable [email or web address] Reason for Visit * Reason Onset Date Comments [facility] Care Plan Update 01/07/2025 [facility] Plan of Care Update Care Coordination 01/10/2025 [facility] Care Coor dination Encounter Details Date Type Department Care Team (Latest Contact Info) Description 01/07/2025 Patient Outreach [facility]NAG[facility] [address] [place] [address] Lashonda Matute, RN [address] [place] [address] [phone] [email or web address] [facility] Care Plan Update ([facility] Plan of Care Update); Care Coordination ([facility] Care Coordination) Social History Tobacco Use Types Packs/Day Years [...] on file documented as of this encounter Progress Notes * Lashonda Matute RN - 01/07/2025 3:06 PM EDT [facility] Note Subject: [facility] Progress Note 01/10/2025: Pt returned this radio news writer's call and said she would like to move forward with [employer] referral and that this radio news writer can go ahead and fill out whatever is needed. However this radio news writer needs to speak with pt to complete this task, as the form is lengthy and requires pt's input. INTERVENTIONS: Sent text message to pt with the above information and offered stated intention to call pt on 01/29 to take care of this task together. Asked pt to let this radio news writer know if this day does not work, and which part of the day is best for pt to receive the call. FOLLOW-UP OUTREACH: 01/29/25 unless pt needs to move this date. Contact method: Phone outreach Lashonda Matute RN iCMP basketballs and footballs reverser [phone] documented in this encounter Miscellaneous Notes * Plan of Care - Lashonda Matute RN - 01/07/2025 3:06 PM EDT [facility] CARE COORDINATION NOTE Note Subject: [facility] Progress Note 01/07/2025: Called pt to follow up around current needs and progress with POC goals. Unable to reachpt. Left message asking for a call back. FOLLOW-UP OUTREACH: 3 weeks if pt has not responded by then. Contact method: Phone outreach Plan of Care Unable to update POC today, as pt could not be reached. documented in this encounter Plan of Treatment Upcoming Encounters Date Type Department Care Team (Late st Contact Info) Description 01/17/2025 11:00 AM EDT Office Visit [facility] Sports Medicine [address] [place] [address] Libby Norris MD [address] [place] [address] Orthopedics & Sports Medicine, [facility] [place] [place] [address] [email or web address] documented as of this encounter Visit Diagnoses Not on filedocumented in this encounter Additional Health Concerns Assessment Noted Time PHQ-9 Depression Total Score: 20 023 3:09 PM EDT PHQ-2 Depression Total Score: 5 07/29/19 23 3:09 PM EDT documented as of this encounter Care Teams M48/M60 Tank Driver Relationship Specialty Start Date End Date Mari Barraza MD [email or web address] PCP - General Family Medicine 02/03/24 Lashonda Matute RN [address] [place] [phone] iCMP Catalogue And Special Products Manager 03/01/24 Keisha Gibson MBBS [address] [place] [phone] [email or web address] 05/29/24 Cydney Kwon [address] [place] [phone] Community Health Worker 10/19/24 documented as of this encounter Additional Source Comments The information contained in this document represents components of the legal health record. It is not the complete legal health record[facility]
--- OUTSIDE RECORDS SUMMARY | 2025-01-10 10:36 | XMS_ITS | Encounter Summary ---
Author Organization [facility] Address [address] [place] [id number] Phone Care Team Providers Care Curb Machine Operator Name Role Phone Mari Barraza MD Primary Care Provider [phone] Lashonda Matute RN Unavailable Keisha Gibson MBBS Unavailable [phone] Cydney Kwon Unavailable [email or web address] Reason for Visit * Reason Onset Date Comments Community Resources 01/07/2025 [facility] Encounter Details Date Type Department Care Team (Late st Contact Info) Description 01/07/2025 Patient Outreach [facility] [address] [place] [address] Abril Blevins [address] [place] [address] [email or web address] Community Resources ([facility]) Social History Tobacco Use Types Packs/Day Years [...] as of this encounter Progress Notes * Abril Blevins - 01/07/2025 2:09 PM EDT [facility] - Food and Nutrition Service Eligibility Outreach 01/07/2025 Patient may be eligible for a food and nutrition service that helps obtain fresh food and was outreached to confirm eligibility and interest in the service. USDA Food Security Survey The food that (I/we) bought just didn???t last, and (I/we) didn???t have money to get more.?? Was that often, sometimes, or never true for (you/your household) in the last 12 months if you did not have SNAP or other resources? Often true (I/we) couldn???t afford to eat balanced meals.?? Was that often, sometimes, or never true for (you/your household) in the last 12 months if you did not have SNAP or other resources? Often true In the last 12 months, since last (name of current month), did (you/you or other adults in your household) ever cut the size of your meals or skip meals because there wasn't enough money for food if you did not have SNAP or other resources? Yes [IF YES ABOVE, ASK] How often did this happen--almost every month, some months but not every month,or in only 1 or 2 months if you did not have SNAP or other resources? Almost every month In the last 12 months, did you ever eat less than you felt you should because there wasn't enough money for food if you did not have SNAP or other resources? Yes In the last 12 months, were you ever hungry but didn't eat because there wasn't enough money for food if you did not have SNAP or other resources? Yes Can member or someone at home prepare meals? Member or someone at home can prepare meals, and member has selected the food voucher. Member does not have a preference for contact time of day. PLAN Professional Bondsman Sharron Vargas will submit [facility] referral on behalf of patient. Patient is aware that [facility] will outreach to patient directly after referrals have been submitted. Next Follow-Up Date: Member should hear from the [facility] provider directly within 1 week of referral submission. documented in this encounter Plan of Treatment Upcoming Encounters Date Type Department Care Team (Late st Contact Info) Description 01/17/2025 11:00 AM EDT Office Visit [facility] [address] [place] [id number] Libby Norris MD [address] [place] [address] Orthopedics & Sports Medicine, [facility] [place] [address] documented as of this encounter Visit Diagnoses Not on filedocumented in this encounter Additional Health Concerns Assessment Noted Time PHQ-9 Depression Total Score: 20 023 3:09 PM EDT PHQ-2 Depression Total Score: 5 07/29/19 23 3:09 PM EDT documented as of this encounter Care Teams Curb Machine Operator Relationship Specialty Start Date End Date Mari Barraza MD [email or web address] PCP - General Family Medicine 02/03/24 Lashonda Matute RN [address] [place] [id number] [email or web address] Dye Colorist Dyer 03/01/24 Keisha Gibson MBBS [address] [place] [id number] [email or web address] On[facility] 05/29/24 Cydney Kwon [address] [place] [address] [email or web address] Community Health Worker 10/19/24 documented as of this encounter Additional Source Comments The information contained in this document represents components of the legal health record. It is not the complete legal health record.[facility]
== END ==
LOC: HO.CARD 09:32
PROVIDERS: PCP Family Medicine; Visit Provider Nurse Practitioner Family
DX: R06.02 Shortness of breath (principal)
CPT/HCPCS: 78452; 93017; A9500; J0280; J2785

== ENCOUNTER → 2025-01-10 09:34 | Outpatient (BNV) | payer MEDICAID, SELFPAY | PROVIDERS: PCP Family Medicine | DX: R06.02 Shortness of breath (principal) | CPT/HCPCS: 78452 ==